=== PATIENT | female | born 1945 | race Caucasian/White ===

== ENCOUNTER → 2016-12-04 | Outpatient (CLI) | payer MEDICARE, OTHER | LOC: RAD 12:48 | PROVIDERS: ATTEND Orthopaedic Surgery | DX: M53.3 Sacrococcygeal disorders, not elsewhere classified (principal); S32.9XXA Fracture of unspecified parts of lumbosacral spine and pelvis, initial encounter for closed fracture; X58.XXXA Exposure to other specified factors, initial encounter | CPT/HCPCS: 72192 ==

== ENCOUNTER 2017-03-08 22:33 | Inpatient (IN) | payer MEDICARE, OTHER, MEDICAID ==
[2017-03-08] MEDS ORDERED: ACETAMINOPHEN 325 MG TABLET PO ONE (23:03)
[2017-03-08] MEDS ORDERED: IPRATROPIUM/ALBUTEROL 0.5-2.5 MG/3 ML AMPUL NEB ONE (23:06)
--- NOTE | 2017-03-08 23:11 | ER Document Report ---
ED General - General Mode of Arrival: Medic Information source: Patient, OM Records, Outside Facility Records TRAVEL OUTSIDE OF THE [place] IN LAST 30 DAYS: No - HPI Patient complains to provider of: Difficulty Breathing Onset: This morning Onset/Duration: Persistent Associated symptoms: Productive cough, Fever, Shortness of breath, Other - Incontinent <SALVADOR PÉREZ - Last Filed: 03/08/17 23:06> <VERNELL EWING - Last Filed: 03/09/17 05:02> - General Chief Complaint: Breathing Difficulty Stated Complaint: RESPIRATROY DISTRESS Time Seen by Provider: 03/08/17 22:54 Notes: Patient is a 71 year old female, with significant medical history including vascular dementia, COPD, pulmonary hypertension, presenting to the emergency department via EMS from [facility] with concerns of difficulty breathing. According to medical documents sent over with the patient, patient was febrile, SOB, and urinary incontinent. Patient had a chest x-ray performed today that showed right lower lobe infiltrate. Patient also had blood work that showed a WBC 15,200, fever of 101.7 at 1700 this afternoon. Patient given Xopenex 0.63 mg neb x2 - most recent at 2200. Patient reports improvement in her breathing. PCP Dr. oLng (SALVADOR PÉREZ) - Related Data Allergies/Adverse Reactions: erythromycin base [Erythromycin Base] Allergy (Severe, Verified 06/08/16 13:58) Paranoid latex [Latex] Allergy (Intermediate, Verified 06/08/16 13:58) Blisters Past Medical History - General Information source: [facility] Records, Outside Facility Records - Social History Smoking Status: Former Smoker Lives with: [facility] - [place] Family History: Reviewed & Not Pertinent, COPD, Hypertension - Past Medical History Cardiac Medical History: Reports: Hx Hypercholesterolemia, Hx Hypertension Pulmonary Medical History: Reports: Hx Bronchitis, Hx COPD, Hx Pneumonia Neurological Medical History: Reports: Hx Cerebrovascular Accident Endocrine Medical History: Reports: Hx Hyperthyroidism Musculoskeltal Medical History: Reports Hx Arthritis Psychiatric Medical History: Reports: Hx Depression Traumatic Medical History: Reports: Hx Fractures Past Surgical History: Reports: Hx Appendectomy, Hx Cholecystectomy - Gallbladder was not seen on a recent CT scan, no clips were noted, it may b - Immunizations Hx Diphtheria, Pertussis, Tetanus Vaccination: - unknown Hx Pneumococcal Vaccination: 10/11/06 <SALVADOR PÉREZ - Last Filed: 03/08/17 23:06> Review of Systems - Review of Systems Constitutional: See HPI, Fever EENT: No symptoms reported Cardiovascular: No symptoms reported Respiratory: See HPI, Cough, Short of breath Gastrointestinal: No symptoms reported Genitourinary: See HPI, Incontinence Female Genitourinary: No symptoms reported Musculoskeletal: No symptoms reported Skin: No symptoms reported Hematologic/Lymphatic: No symptoms reported Neurological/Psychological: No symptoms reported -: Yes All other systems reviewed and negative <SALVADOR PÉREZ - Last Filed: 03/08/17 23:06> Physical Exam - General General appearance: Alert - HEENT Head: Normocephalic, Atraumatic Eyes: Normal Pupils: PERRL - Respiratory Respiratory status: No respiratory distress Breath sounds: Rhonchi, Wheezing - Cardiovascular Rhythm: Regular Heart sounds: Normal auscultation Murmur: No - Abdominal Inspection: Normal Distension: No distension Bowel sounds: Normal Tenderness: Nontender Organomegaly: No organomegaly - Back Back: Normal, Nontender - Extremities General upper extremity: Normal inspection, Nontender General lower extremity: Normal inspection, Nontender - Neurological Neuro grossly intact: Yes Cognition: Other - Vascular Dementia Standish Coma Scale Eye Opening: Spontaneous Feliz Coma Scale Verbal: Oriented Feliz Coma Scale Motor: Obeys Commands Feliz Coma Scale Total: 15 Speech: Normal - Psychological Associated symptoms: Normal affect, Normal mood - Skin Skin Temperature: Warm Skin Moisture: Dry Skin Color: Normal <SALVADOR PÉREZ - Last Filed: 03/08/17 23:06> Course <SALVADOR PÉREZ - Last Filed: 03/08/17 23:06> - Laboratory Result Diagrams: 03/08/17 23:15 03/08/17 23:15 - Diagnostic Test Radiology reviewed: Image reviewed, Reports reviewed - Chest x-ray shows chronic interstitial changes and emphysema. There are no acute processes noted. CTA chest does not show pulmonary emboli, it does show a right lower lobe infiltrate. - EKG Interpretation by [facility] EKG shows normal: Sinus rhythm, Higbee, Intervals, QRS Complexes. abnormal: ST-T Waves - Diffuse nonspecific repolarization abnormalities Rhythm: NSR - 92 - Consults Dr. Tran Consulted provider: will see as inpatient <VERNELL EWING - Last Filed: 03/09/17 05:02> - Re-evaluation Re-evalutation: 03/09/17 00:40 Seems a little restless at this time, has a respiratory rate of 28. On 4 L O2 her pulse ox is 100%. Nurse tells me they have had the patient on 4 L O2 at the [facility]. 03/09/17 01:32 The oxygen was turned down to 2 L and an ABG was obtained showing a pH of 7.46, PCO2 36.7, PO2 63, 93% oxygen saturation. (VERNELL EWING) - Vital Signs Vital signs: Temp Pulse Resp BP Pulse Ox 98.6 F 92 22 H 143/52 H 96 03/08/17 23:00 03/08/17 23:00 03/09/17 04:18 03/09/17 04:18 03/09/17 04:18 - Laboratory Laboratory results interpreted by me: 03/08/17 03/08/17 03/08/17 23:15 23:15 23:15 WBC 13.2 H RBC 3.58 L Hgb 8.0 L Hct 25.6 L MCV 71 L MCH 22.4 L MCHC 31.4 L RDW 17.6 H Seg Neutrophils % 78.3 H Lymphocytes % 7.5 L Monocytes % 13.2 H Absolute Neutrophils 10.3 H Absolute Monocytes 1.7 H D-Dimer 1.55 H ABG pH ABG pO2 ABG Total CO2 ABG O2 Saturation Sodium 127.7 L Chloride 90 L BUN 32 H Est GFR (Non-Af Amer) 56 L AST 45 H Alkaline Phosphatase 128 H Albumin 3.4 L Crossmatch 03/09/17 03/09/17 01:10 01:56 WBC RBC Hgb Hct MCV MCH MCHC RDW Seg Neutrophils % Lymphocytes % Monocytes % Absolute Neutrophils Absolute Monocytes D-Dimer ABG pH 7.46 H ABG pO2 63.0 L ABG Total CO2 26.5 H ABG O2 Saturation 93.3 L Sodium Chloride BUN Est GFR (Non-Af Amer) AST Alkaline Phosphatase Albumin Crossmatch See Detail Discharge <SALVADOR PÉREZ - Last Filed: 03/08/17 23:06> - Discharge Admitting Provider: Ethan Tran covering Unit Admitted: IMCU <VERNELL EWING - Last Filed: 03/09/17 05:02> - Discharge Clinical Impression: COPD exacerbation Right lower lobe pneumonia Qualifiers: Pneumonia type: due to unspecified organism Qualified Code(s): J18.1 - Lobar pneumonia, unspecified organism Anemia Qualifiers: Anemia type: iron deficiency Iron deficiency anemia type: chronic blood loss Qualified Code(s): D50.0 - Iron deficiency anemia secondary to blood loss ( chronic) Condition: Stable Disposition: ADMITTED INPATIENT Scribe Attestation: 03/09/17 05:00 I personally performed the services described in the documentation, reviewed and edited the documentation which was dictated to the scribe in my presence, and it accurately records my words and actions. (VERNELL EWING) Scribe Documentation - Scribe Written by Fernando:: Fernando Sanders, 03/08/2017 [id number] acting as scribe for :: Bruno <SALVADOR PÉREZ - Last Filed: 03/08/17 23:06>
[2017-03-08 23:32] LABS: ABSOLUTE EOSINOPHILS # (AUTO) 0.1 10^3/uL (0.0-0.6); ABSOLUTE MONOCYTES (AUTO) 1.7 10^3/uL (0.1-1.4); ABSOLUTE NEUT (AUTO) 10.3 10^3/uL (1.7-8.2); BASOPHILS % (AUTO) 0.3 % (0-2); EOSINOPHILS % (AUTO) 0.7 % (0-6); HEMATOCRIT 25.6 % (36.0-47.0); HGB HCT DIFFERENCE -1.6; LYMPHOCYTES % (AUTO) 7.5 % (13-45); MEAN CORPUSCULAR HEMOGLOBIN 22.4 pg (27.0-33.4); MEAN CORPUSCULAR HGB CONC 31.4 g/dL (32.0-36.0); MEAN CORPUSCULAR VOLUME 71 fl (80-97); MONOCYTES % (AUTO) 13.2 % (3-13); RED BLOOD COUNT 3.58 10^6/uL (3.72-5.28); RED CELL DISTRIBUTION WIDTH 17.6 % (11.5-14.0); SEGMENTED NEUTROPHILS % (AUTO) 78.3 % (42-78); WHITE BLOOD COUNT 13.2 10^3/uL (4.0-10.5)
--- NOTE | 2017-03-08 23:36 | RADIOLOGY REPORT (SQ) ---
EXAM DESCRIPTION: CHEST SINGLE VIEW COMPLETED DATE/TIME: 03/08/2017 11:15 pm REASON FOR STUDY: DIFFICULTY BREATHING COMPARISON: 08/10/2016 EXAM PARAMETERS: NUMBER OF VIEWS: One view. TECHNIQUE: Single frontal radiographic view of the chest acquired. RADIATION DOSE: NA LIMITATIONS: None. FINDINGS: LUNGS AND PLEURA: No acute opacities, masses or pneumothorax. Similar chronic interstitia l changes and emphysema. No pleural effusion. MEDIASTINUM AND HILAR STRUCTURES: Stable. HEART AND VASCULAR STRUCTURES: Stable. BONES: No acute findings. HARDWARE: None in the chest. OTHER: No other significant finding. IMPRESSION: NO ACUTE RADIOGRAPHIC FINDING IN THE CHEST. TECHNICAL DOCUMENTATION: JOB ID: [id number]
[2017-03-08 23:46] LABS: ALANINE AMINOTRANSFERASE 34 U/L (9-52); ALBUMIN 3.4 g/dL (3.5-5.0); ALKALINE PHOSPHATASE 128 U/L (38-126); ANION GAP 13 (5-19); ASPARTATE AMINO TRANSFERASE 45 U/L (14-36); BILIRUBIN,DIRECT 0.4 mg/dL (0.0-0.4); BILIRUBIN,TOTAL 0.4 mg/dL (0.2-1.3); BLOOD UREA NITROGEN 32 mg/dL (7-20); CALCIUM 9.1 mg/dL (8.4-10.2); CARBON DIOXIDE 25 mmol/L (22-30); CHLORIDE 90 mmol/L (98-107); CREATINE KINASE 62 U/L (30-135); CREATININE RESULT 0.98 mg/dL (0.52-1.25); GLUCOSE 107 mg/dL (75-110); POTASSIUM 3.9 mmol/L (3.6-5.0); SODIUM 127.7 mmol/L (137-145); TOTAL PROTEIN 6.6 g/dL (6.3-8.2)
[2017-03-08 23:57] LABS: CREATINE KINASE MB 1.1 ng/mL (<4.55); TROPONIN I 0.016 ng/mL
[2017-03-09] MEDS ORDERED: LEVOFLOXACIN 750 MG TABLET PO ONE (00:01)
[2017-03-09] MEDS ORDERED: PREDNISONE 20 MG TABLET PO ONE (00:39)
[2017-03-09 01:26] LABS: ARTERIAL BLOOD BASE EXCESS 1.5 mmol/L; ARTERIAL BLOOD O2 SATURATION 93.3 % (94-98)
[2017-03-09] MEDS ORDERED: NORMAL SALINE 250 ML IV PRN (01:33)
--- NOTE | 2017-03-09 04:44 | RADIOLOGY REPORT (SQ) ---
EXAM DESCRIPTION: CTA CHEST COMPLETED DATE/TIME: 03/09/2017 4:22 am REASON FOR STUDY: elevated d-dimer, SOB COMPARISON: 08/11/2016. CR, 1 day prior. TECHNIQUE: CT scan of the chest performed using helical scanning technique with dynamic intravenous contrast injection. Images reviewed with lung, soft tissue and bone windows. Reconstructed coronal and sagittal MPR images reviewed. Additional 3 dimensional post-processing performed to develop Maximal Intensity Projection images ([place] P). All images stored on PACS. All CT scanners at this facility use dose modulation, iterative reconstruction, and/or weight based d osing when appropriate to reduce radiation dose to as low as reasonably achievable (ALARA). [facility]: Dose Right [facility]: CareDose [facility]: Dose Right [facility]: Teradose 4D [facility]: Amerpages CONTRAST TYPE AND DOSE: 100 cc Isovue 370- low osmolar. RENAL FUNCTION: Creatinine 1.0 RADIATION DOSE: 14.32 mGy. LIMITATIONS: None. FINDINGS: LUNGS AND PLEURA: Small consolidative opacity of the right lower lobe posteriorly. Modera te emphysematous hyperinflation. Moderate chronic interstitial lung disease pattern. Minimal right basilar effusion. AORTA AND GREAT VESSELS: No aneurysm or dissection. HEART: No pericardial effusion. Moderate coronary arterial calcification. Chronic mild right-sided shift -rotation of the heart or mediastinum. PULMONARY ARTERIES: No emboli visualized in the main pulmonary arteries or the segmental branches. HILAR AND MEDIASTINAL STRUCTURES: No identified masses or abnormal nodes. HARDWARE: None in the chest. UPPER ABDOMEN: Nodular contour of the liver may indicate cirrhosis. THYROID AND OTHER SOFT TISSUES: No masses. No adenopathy. BONES: No acute or significant finding. Mild chronic T8 compression deformity. 3D MIPS: Confirm above findings. OTHER: No other significant finding. IMPRESSION: Small right lower lobar pneumonia -atelectasis. No evidence of pulmonary emboli. Possi ble cirrhosis. TECHNICAL DOCUMENTATION: JOB ID: [id number] Quality ID # [id number]: Final reports with documentation of one or more dose reduction techniques (e.g., Au tomated exposure control, adjustment of the mA and/or kV according to patient size, use of iterative reconstruction technique) 2010 [employer]- All Rights Reserved
[2017-03-09] MEDS ORDERED: IPRATROPIUM/ALBUTEROL 0.5-2.5 MG/3 ML AMPUL NEB ONE (06:20)
[2017-03-09] MEDS ORDERED: LANSOPRAZOLE 30 MG TAB.RAP.DR PO ONE (09:30)
[2017-03-09 09:37] LABS: PROTHROMBIN TIME 18.6 SEC (11.4-15.4)
[2017-03-09 09:38] LABS: PARTIAL THROMBOPLASTIN TIME 31.9 SEC (23.5-35.8)
[2017-03-09] MEDS ORDERED: ENOXAPARIN SODIUM INJ 30 MG/0.3 ML DISP.SYRIN SUBCUT ONE (10:00)
--- NOTE | 2017-03-09 10:01 | EKG REPORT ---
SEVERITY:- ABNORMAL ECG - SINUS RHYTHM NONSPECIFIC REPOL ABNORMALITY, DIFFUSE LEADS LVH : Confirmed by: Lesly Estrada 09-Mar-2017 10:00:19
[2017-03-09] MEDS: NORMAL SALINE 1000 ML 1,000 ML IV PRN ×2 (11:34→23:05)
[2017-03-09 13:32] LABS: HEMATOCRIT 32.3 % (36.0-47.0); HGB HCT DIFFERENCE -1.4; MEAN CORPUSCULAR HEMOGLOBIN 23.9 pg (27.0-33.4); RED BLOOD COUNT 4.32 10^6/uL (3.72-5.28); RED CELL DISTRIBUTION WIDTH 20.2 % (11.5-14.0); WHITE BLOOD COUNT 14.1 10^3/uL (4.0-10.5)
[2017-03-09 13:51] LABS: ALANINE AMINOTRANSFERASE 42 U/L (9-52); ALBUMIN 3.3 g/dL (3.5-5.0); ALKALINE PHOSPHATASE 133 U/L (38-126); ANION GAP 14 (5-19); ASPARTATE AMINO TRANSFERASE 56 U/L (14-36); BILIRUBIN,DIRECT 0.3 mg/dL (0.0-0.4); BILIRUBIN,TOTAL 0.6 mg/dL (0.2-1.3); BLOOD UREA NITROGEN 27 mg/dL (7-20); CALCIUM 9.1 mg/dL (8.4-10.2); CARBON DIOXIDE 25 mmol/L (22-30); CHLORIDE 92 mmol/L (98-107); CREATININE RESULT 0.84 mg/dL (0.52-1.25); GLUCOSE 132 mg/dL (75-110); POTASSIUM 4.5 mmol/L (3.6-5.0); SODIUM 131.3 mmol/L (137-145); TOTAL PROTEIN 6.6 g/dL (6.3-8.2)
[2017-03-09 13:59] LABS: HEMOGLOBIN 10.3 g/dL (12.0-15.5); MEAN CORPUSCULAR VOLUME 75 fl (80-97)
[2017-03-09 14:01] LABS: BAND NEUTROPHILS % (MANUAL) 5 % (3-5); BASOPHILS % (MANUAL) 0 % (0-2); EOSINOPHILS % (MANUAL) 0 % (0-6); LYMPHOCYTES % (MANUAL) 2 % (13-45); TOTAL CELLS COUNTED 100
[2017-03-09 14:02] LABS: BURR CELLS 1+; MICROCYTOSIS 1+; OVALOCYTES SLIGHT; SCHISTOCYTES SLIGHT; TARGET CELLS SLIGHT; TOXIC GRANULATION SLIGHT
[2017-03-09 14:03] LABS: ANISOCYTOSIS 2+; POIKILOCYTOSIS 2+
[2017-03-09 17:30] LABS: APPEARANCE,URINE CLEAR; BILIRUBIN,URINE NEGATIVE (NEGATIVE); GLUCOSE, URINE NEGATIVE (NEGATIVE); KETONES,URINE NEGATIVE (NEGATIVE); LEUKOCYTE ESTERASE,URINE NEGATIVE (NEGATIVE); NITRITE,URINE NEGATIVE (NEGATIVE); PROTEIN,URINE 30 mg/dL (NEGATIVE); URINE SPECIFIC GRAVITY 1.044; UROBILINOGEN,URINE NEGATIVE mg/dL (<2.0)
--- NOTE | 2017-03-10 00:07 | PDOC H&P ---
History of Present Illness Admission Date/PCP: 03/09/17 05:16 Patient complains of: Difficulty with breathing, Fever History of Present Illness: ROSY PIKE is a 71 year old female patient of Dr Long resident at [facility] who was transferred to the ED following her evaluation for difficulty with breathing at the [facility] that eventually revealed significant anemia and possible early phase of lobar pneumonia. Her ED evaluation including CTA scan of chest and abdomen did confirm air sace disease process with significant anemia on blood work. In view of these findings she was advised hospitalization. Past Medical History Cardiac Medical History: Reports: Hyperlipidema, Hypertension Denies: Congestive Heart Failure, DVT, Myocardial Infarction, Pulmonary Embolism Pulmonary Medical History: Reports: Bronchitis, Chronic Obstructive Pulmonary Disease (COPD), Pneumonia Neurological Medical History: Denies: Seizures Endocrine Medical History: Reports: Hyperthyroidism Denies: Diabetes Mellitus Type 1, Diabetes Mellitus Type 2 GI Medical History: Denies: Cirrhosis, Gastroesophageal Reflux Disease, Hiatal Hernia Musculoskeltal Medical History: Reports: Arthritis Skin Medical History: Denies: Eczema, Psoriasis Psychiatric Medical History: Reports: Depression Hematology: Reports: Anemia Past Surgical History Past Surgical History: Reports: Appendectomy, Cholecystectomy - Gallbladder was not seen on a recent CT scan, no clips were noted, it february Denies: Amputation, Hysterectomy Social History Lives with: [facility] - [place] Smoking Status: Current Every Day Smoker Pipes Per Day: 50 Frequency of Alcohol Use: None Hx Recreational Drug Use: No Drugs: None Hx Prescription Drug Abuse: No - Advance Directive Resuscitation Status: Full Code Family History Family History: Reviewed & Not Pertinent, COPD, Hypertension Parental Family History Reviewed: Yes Children Family History Reviewed: Yes Sibling(s) Family History Reviewed.: Yes Medication/Allergy Home Medications: Albuterol Sulfate [Ventolin Hfa] 1 puff IH Q4HP PRN 03/09/17 Amlodipine Besylate [Norvasc 10 mg Tablet] 10 mg PO DAILY 03/09/17 Aspirin/Dipyridamole [Aggrenox 25 mg-200 mg Capsule] 1 cap PO Q12 03/09/17 Atorvastatin Calcium [Lipitor 80 mg Tablet] 80 mg PO DAILY 03/09/17 Budesonide/Formoterol Fumarate [Symbicort HFA 160-4.5 mcg Inhaler 6 gm] 2 puff IH Q12 03/09/17 Fluticasone Propionate [Flonase Nasal [place] 50 Mcg/[place] 16 gm] 2 spray NASL Q12 03/09/17 Lamotrigine [Lamictal] 25 mg PO Q12 03/09/17 Lisinopril [Zestril] 20 mg PO Q12 03/09/17 Loperamide HCl [Imodium 2 mg Capsule] 2 mg PO Q4HP PRN 03/09/17 Magnesium Hydroxide [Milk of Magnesia 30 ml Udcup] 30 ml PO Q3DAYS PRN 03/09/17 Metoprolol Succinate [Toprol Xl 50 mg Tab.sr] 50 mg PO DAILY 03/09/17 Nicotine [Nicoderm 7 mg/24 Hr Transdermal Patch] 1 patch TD DAILY 03/09/17 Omeprazole 40 mg PO DAILY 03/09/17 Oxcarbazepine [Trileptal] 300 mg PO DAILY 03/09/17 Oxcarbazepine [Trileptal] 600 mg PO QHS 03/09/17 Tiotropium [place] [Spiriva Handihaler 5 Cap/Kit (18 Mcg/Cap)] 18 mcg IH DAILY 03/09/17 Tramadol HCl [Ultram 50 mg Tablet] 50 mg PO Q6HP PRN 03/09/17 Allergies/Adverse Reactions: erythromycin base [Erythromycin Base] Allergy (Severe, Verified 06/08/16 13:58) Paranoid latex [Latex] Allergy (Intermediate, Verified 06/08/16 13:58) Blisters Review of Systems Constitutional: ABSENT: chills, fever(s), headache(s), weight gain, weight loss Eyes: ABSENT: visual disturbances Ears: ABSENT: hearing changes Nose, Mouth, and Throat: ABSENT: as per HPI, headache(s), mouth pain, sore throat, vertigo, other Cardiovascular: ABSENT: chest pain, dyspnea on exertion, edema, orthropnea, palpitations Respiratory: PRESENT: cough, dyspnea. ABSENT: sputum Gastrointestinal: ABSENT: abdominal pain, constipation, diarrhea, hematemesis, hematochezia, nausea, vomiting Genitourinary: ABSENT: dysuria, hematuria Musculoskeletal: ABSENT: joint swelling Integumentary: ABSENT: rash, wounds Neurological: ABSENT: abnormal gait, abnormal speech, confusion, dizziness, focal weakness, syncope Psychiatric: ABSENT: anxiety, depression, homidical ideation, suicidal ideation Endocrine: ABSENT: cold intolerance, heat intolerance, polydipsia, polyuria Hematologic/Lymphatic: ABSENT: easy bleeding, easy bruising, lymphadenopathy Physical Exam Vital Signs: Temp Pulse Resp BP Pulse Ox 97.3 F 78 25 H 145/58 H 97 03/09/17 07:17 03/09/17 07:17 03/09/17 07:17 03/09/17 07:17 03/09/17 07:25 Intake & Output 03/08/17 03/09/17 03/10/17 06:59 06:59 06:59 Intake Total 50 Balance 50 General appearance: PRESENT: no acute distress, well-developed, well-nourished Head exam: PRESENT: atraumatic, normocephalic Eye exam: PRESENT: conjunctiva pink, EOMI, PERRLA. ABSENT: scleral icterus Ear exam: PRESENT: normal external ear exam Mouth exam: PRESENT: moist, tongue midline Throat exam: ABSENT: post pharyngeal erythema, tonsillar erythema, tonsillar exudate, tonsillogmegaly, other Neck exam: PRESENT: full ROM. ABSENT: carotid bruit, JVD, lymphadenopathy, thyromegaly Respiratory exam: PRESENT: decreased breath sounds - at lung bases bilaterally. Cardiovascular exam: PRESENT: RRR. ABSENT: diastolic murmur, rubs, systolic murmur Pulses: PRESENT: normal dorsalis pedis pul, +2 pedal pulses bilateral Vascular exam: PRESENT: normal capillary refill GI/Abdominal exam: PRESENT: normal bowel sounds, soft. ABSENT: distended, guarding, mass, organolmegaly, rebound, tenderness Rectal exam: PRESENT: deferred Extremities exam: ABSENT: pedal edema Musculoskeletal exam: PRESENT: deformity - related to multipe joints osteoarthrtis involvment Neurological exam: PRESENT: alert, awake, oriented to person, oriented to place , oriented to time, oriented to situation, CN II-XII grossly intact. ABSENT: motor sensory deficit Psychiatric exam: PRESENT: appropriate affect, normal mood. ABSENT: homicidal ideation, suicidal ideation Skin exam: PRESENT: dry, intact, warm. ABSENT: cyanosis, rash Results Laboratory Results: Please Babyage for laboratory results that form significant part f my medical decision making in this case. Impressions: Chest X-Ray 03/08/17 22:50 IMPRESSION: NO ACUTE RADIOGRAPHIC FINDING IN THE CHEST. Chest/Abdomen CTA 03/09/17 01:47 IMPRESSION: Small right lower lobar pneumonia -atelectasis. No evidence of pulmonary emboli. Possible cirrhosis. Assessment & Plan - Diagnosis (1) Right lower lobe pneumonia Qualifiers: Qualified Code(s): J18.1 - Lobar pneumonia, unspecified organism Is this a current diagnosis for this admission?: YesPlan: See admitting attending orders. (2) Anemia Qualifiers: Qualified Code(s): D50.0 - Iron deficiency anemia secondary to blood loss (chronic) Is this a current diagnosis for this admission?: YesPlan: see admitting attending orders. - Time Time Spent: 50 to 70 Minutes Medications reviewed and adjusted accordingly: Yes Anticipated discharge: SNF Within: Other - Inpatient Certification Medical Necessity: Need Close Monitoring Due to Risk of Patient Decompensation, Need For IV Fluids, Need For Continuous Telemetry Monitoring, Risk of Complication if Not Cared For in Hospital Post Hospital Care: D/C or Transfer Summary - Plan Summary Plan Summary: See admitting attending orders.
[2017-03-10] MEDS: LANSOPRAZOLE 30 MG TAB.RAP.DR PO SCH (06:08)
[2017-03-10] MEDS: ENOXAPARIN SODIUM INJ 30 MG/0.3 ML DISP.SYRIN SUBCUT SCH (08:23)
[2017-03-10] MEDS: AMLODIPINE BESYLATE 10 MG TABLET PO SCH (09:10)
[2017-03-10] MEDS: LEVOFLOXACIN 750 MG TABLET PO SCH (09:11)
[2017-03-10] MEDS: ASPIRIN/DIPYRIDAMOLE 25-200 MG 1 CAP.SR CPMP.12HR PO SCH ×2 (09:11→21:44)
[2017-03-10] MEDS: METOPROLOL SUCCINATE 50 MG TAB.SR.24H PO SCH (09:12)
[2017-03-10] MEDS: LISINOPRIL 10 MG TABLET PO SCH ×2 (09:12→21:41)
[2017-03-10] MEDS: BUDESONIDE/FORMOTEROL 160-4.5 MCG 60 PUFF/6 GM MDI IH SCH ×2 (09:13→21:39)
[2017-03-10] MEDS: FLUTICASONE NASAL SPRAY 50 MCG/SPRY 120 SPRAY/16 GM NASL SCH ×2 (09:14→21:40)
[2017-03-10] MEDS: LAMOTRIGINE 25 MG TAB.CHEW PO SCH ×2 (09:15→21:43)
[2017-03-10] MEDS: TIOTROPIUM BROMIDE DPI 5 CAP/KIT (18 MCG/CAP) IH SCH (09:17)
[2017-03-10] MEDS: OXCARBAZEPINE 150 MG TABLET PO SCH ×2 (09:17→21:43)
[2017-03-10] MEDS: CLINDAMYCIN 600 MG/D5W RTU 600 MG/50 ML RTUPB IV SCH ×2 (10:08→17:10)
[2017-03-10] MEDS ORDERED: ONDANSETRON HCL INJ/PF 4 MG/2 ML SDV IV PRN (11:51)
[2017-03-10] MEDS: NORMAL SALINE 1000 ML 1,000 ML IV PRN (12:43)
--- NOTE | 2017-03-10 18:38 | PDOC PROGRESS REPORT ---
Subjective Progress Note for:: 03/10/17 Subjective:: Patient and nursing staff reported development of swelling in her jaw region with associated pain. There is no associated pain in her mouth. She denied any difficulty with chewing or swallowing. No nausea or vomiting. No abdominal pain. No reported fever or chills. Physical Exam Vital Signs: Temp Pulse Resp BP Pulse Ox 97.7 F 106 H 20 188/87 H 93 03/10/17 07:26 03/10/17 07:26 03/10/17 07:26 03/10/17 07:26 03/10/17 07:26 Intake & Output 03/09/17 03/10/17 03/11/17 06:59 06:59 06:59 Intake Total 2957 Balance 2957 Weight 51.7 kg Physical Exam: General appearance: PRESENT: no acute distress, well-developed, well-nourished Head exam: PRESENT: atraumatic, normocephalic Eye exam: PRESENT: conjunctiva pink, EOMI, PERRLA. ABSENT: scleral icterus Mouth exam: PRESENT: moist, tongue midline Throat exam: ABSENT: post pharyngeal erythema, tonsillar erythema, tonsillar exudate, other Neck exam: PRESENT: full ROM. submandibullar adenopathy with enlargement with tenderness. ABSENT: carotid bruit, JVD, thyromegaly Respiratory exam: PRESENT: decreased breath sounds - at lung bases bilaterally. Cardiovascular exam: PRESENT: RRR. ABSENT: diastolic murmur, rubs, systolic murmur GI/Abdominal exam: PRESENT: normal bowel sounds, soft. ABSENT: distended, guarding, mass, organolmegaly, rebound, tenderness Extremities exam: ABSENT: pedal edema Musculoskeletal exam: PRESENT: deformity - related to multipe joints osteoarthrtis involvment Neurological exam: PRESENT: alert, awake, oriented to person, oriented to place , oriented to time, oriented to situation, CN II-XII grossly intact. ABSENT: motor sensory deficit Psychiatric exam: PRESENT: appropriate affect, normal mood. ABSENT: homicidal ideation, suicidal ideation Skin exam: PRESENT: dry, intact, warm. ABSENT: cyanosis, rash Results Laboratory Results: 03/09/17 13:00 03/09/17 13:00 03/09/17 03/09/17 03/09/17 13:00 13:00 17:00 WBC 14.1 H RBC 4.32 Hgb 10.3 L D Hct 32.3 L MCV 75 L D MCH 23.9 L MCHC 32.0 RDW 20.2 H Plt Count 313 Seg Neutrophils % Not Reportable Lymphocytes % Not Reportable Monocytes % Not Reportable Eosinophils % Not Reportable Basophils % Not Reportable Absolute Neutrophils Not Reportable Absolute Lymphocytes Not Reportable Absolute Monocytes Not Reportable Absolute Eosinophils Not Reportable Absolute Basophils Not Reportable Sodium 131.3 L Potassium 4.5 Chloride 92 L Carbon Dioxide 25 Anion Gap 14 BUN 27 H Creatinine 0.84 Est GFR ( Amer) > 60 Est GFR (Non-Af Amer) > 60 Glucose 132 H Calcium 9.1 Total Bilirubin 0.6 AST 56 H ALT 42 Alkaline Phosphatase 133 H Total Protein 6.6 Albumin 3.3 L Urine Color YELLOW Urine Appearance CLEAR Urine pH 6.0 Ur Specific [place] 1.044 Urine Protein 30 H Urine Glucose (UA) NEGATIVE Urine Ketones NEGATIVE Urine Blood NEGATIVE Urine Nitrite NEGATIVE Ur Leukocyte Esterase NEGATIVE Urine WBC (Auto) 2 Urine RBC (Auto) 2 Impressions: Chest X-Ray 03/08/17 22:50 IMPRESSION: NO ACUTE RADIOGRAPHIC FINDING IN THE CHEST. Chest/Abdomen CTA 03/09/17 01:47 IMPRESSION: Small right lower lobar pneumonia -atelectasis. No evidence of pulmonary emboli. Possible cirrhosis. Assessment & Plan - Diagnosis (1) Right lower lobe pneumonia Qualifiers: Pneumonia type: due to unspecified organism Qualified Code(s): J18.1 - Lobar pneumonia, unspecified organism Is this a current diagnosis for this admission?: YesPlan: See attending physician orders. Maintain on oral Levofloxacin therapy. (2) Anemia Qualifiers: Anemia type: iron deficiency Iron deficiency anemia type: chronic blood loss Qualified Code(s): D50.0 - Iron deficiency anemia secondary to blood loss (chronic) Is this a current diagnosis for this admission?: YesPlan: Follow up on post transfusion CBC for Hgb assessment fpor any fiurther need of transfusion. Obtain stool guaiac test x 3. (3) Steven's angina syndrome Is this a current diagnosis for this admission?: NoPlan: Start on IV Clindamycin coverage.Obtain CT neck and deep tissue for further evaluation of submandibular space for possible infection. - Time Time Spent with patient: 25-34 minutes Medications reviewed and adjusted accordingly: Yes Anticipated discharge: SNF Within: Other - Inpatient Certification Medical Necessity: Need Close Monitoring Due to Risk of Patient Decompensation, Need For IV Fluids, Need For Continuous Telemetry Monitoring, Need for IV Antibiotics, Risk of Complication if Not Cared For in Hospital Post Hospital Care: D/C or Transfer Summary - Plan Summary Plan Summary: Start on IV Clindamycin and maintain on oral Levofloxacin coverage. Follow up on culture findings. Follow up on CT scan findings with regard to possible Steven angina syndrome.
--- NOTE | 2017-03-10 20:43 | RADIOLOGY REPORT (SQ) ---
EXAM DESCRIPTION: CT SOFT TISSUE NECK WITH COMPLETED DATE/TIME: 03/10/2017 8:27 pm REASON FOR STUDY: Submandibular tender, enlarged adenopathy COMPARISON: None. TECHNIQUE: Post IV contrasted scanning from skull base through lung apices with review of bone, soft tissue and lung windows. Reconstructed coronal and sagittal MPR images reviewed. All images stored on PACS. All CT scanners at this facility use dose modulation, iterative reconstruction, and/or weight based d osing when appropriate to reduce radiation dose to as low as reasonably achievable (ALARA). [facility]: Dose Right [facility]: CareDose [facility]: Dose Right [facility]: Teradose 4D [facility]: GreenLancer CONTRAST TYPE AND DOSE: 75mL Isovue 370 RENAL FUNCTION: Creatinine 0.84 RADIATION DOSE: 6.52 mGy. LIMITATIONS: None. FINDINGS: SKULL BASE: Intact. MAJOR SALIVARY GLANDS: No solid or cystic masses. No inflammatory changes. LYMPHADENOPATHY: No adenopathy. MUCOSAL MASSES OR ASYMMETRY: There are edematous or inflammatory changes in the subcutaneous fat in t he submandibular region with some thickening of the adjacent fascial planes. There are couple more c onfluent areas. The appearance would suggest a cellulitis. Clinical correlation is recommended LARYNX/CORDS: No abnormal findings. VASCULAR STRUCTURES: The major vessels are patent. LUNG APICES: Clear. BONES: Intact. THYROID: Normal size. No masses. PARANASAL SINUSES: Clear. OTHER: No other significant finding. IMPRESSION: There are edematous or inflammatory changes in the subcutaneous fat in the submandibular region as noted above with some thickening of the adjacent fascial planes. There are couple more co nfluent areas. The appearance would suggest a cellulitis. Clinical correlation is recommended. Oth er findings as noted above TECHNICAL DOCUMENTATION: JOB ID: [id number] Quality ID # [id number]: Final reports with documentation of one or more dose reduction techniques (e.g., Au tomated exposure control, adjustment of the mA and/or kV according to patient size, use of iterative reconstruction technique) 2010 [employer]- All Rights Reserved
[2017-03-10] MEDS: ATORVASTATIN CALCIUM 80 MG TABLET PO SCH (21:42)
[2017-03-11] MEDS: CLINDAMYCIN 600 MG/D5W RTU 600 MG/50 ML RTUPB IV SCH ×3 (01:15→17:09)
[2017-03-11] MEDS: LANSOPRAZOLE 30 MG TAB.RAP.DR PO SCH (05:17)
[2017-03-11 06:35] LABS: ABSOLUTE EOSINOPHILS # (AUTO) 0.1 10^3/uL (0.0-0.6); ABSOLUTE LYMPHOCYTES (AUTO) 1.1 10^3/uL (0.5-4.7); ABSOLUTE MONOCYTES (AUTO) 1.4 10^3/uL (0.1-1.4); BASOPHILS % (AUTO) 0.3 % (0-2); EOSINOPHILS % (AUTO) 0.7 % (0-6); HEMATOCRIT 30.3 % (36.0-47.0); HEMOGLOBIN 9.7 g/dL (12.0-15.5); HGB HCT DIFFERENCE -1.2; LYMPHOCYTES % (AUTO) 9.3 % (13-45); MEAN CORPUSCULAR HEMOGLOBIN 24.3 pg (27.0-33.4); MEAN CORPUSCULAR HGB CONC 32.2 g/dL (32.0-36.0); MEAN CORPUSCULAR VOLUME 76 fl (80-97); MONOCYTES % (AUTO) 12.1 % (3-13); RED BLOOD COUNT 4.01 10^6/uL (3.72-5.28); RED CELL DISTRIBUTION WIDTH 20.6 % (11.5-14.0); SEGMENTED NEUTROPHILS % (AUTO) 77.6 % (42-78); WHITE BLOOD COUNT 11.7 10^3/uL (4.0-10.5)
[2017-03-11 06:54] LABS: ALANINE AMINOTRANSFERASE 95 U/L (9-52); ALBUMIN 2.5 g/dL (3.5-5.0); ALKALINE PHOSPHATASE 145 U/L (38-126); ANION GAP 9 (5-19); ASPARTATE AMINO TRANSFERASE 115 U/L (14-36); BILIRUBIN,DIRECT 0.2 mg/dL (0.0-0.4); BILIRUBIN,TOTAL 0.3 mg/dL (0.2-1.3); BLOOD UREA NITROGEN 11 mg/dL (7-20); CALCIUM 8.6 mg/dL (8.4-10.2); CARBON DIOXIDE 28 mmol/L (22-30); CHLORIDE 97 mmol/L (98-107); CREATININE RESULT 0.68 mg/dL (0.52-1.25); GLUCOSE 90 mg/dL (75-110); POTASSIUM 3.7 mmol/L (3.6-5.0); SODIUM 134.4 mmol/L (137-145); TOTAL PROTEIN 5.3 g/dL (6.3-8.2)
[2017-03-11] MEDS: NORMAL SALINE 1000 ML 1,000 ML IV PRN (08:38)
[2017-03-11] MEDS: ENOXAPARIN SODIUM INJ 30 MG/0.3 ML DISP.SYRIN SUBCUT SCH (08:38)
[2017-03-11] MEDS: OXCARBAZEPINE 150 MG TABLET PO SCH ×2 (09:21→21:58)
[2017-03-11] MEDS: LISINOPRIL 10 MG TABLET PO SCH ×2 (09:21→21:58)
[2017-03-11] MEDS: AMLODIPINE BESYLATE 10 MG TABLET PO SCH (09:22)
[2017-03-11] MEDS: METOPROLOL SUCCINATE 50 MG TAB.SR.24H PO SCH (09:22)
[2017-03-11] MEDS: ASPIRIN/DIPYRIDAMOLE 25-200 MG 1 CAP.SR CPMP.12HR PO SCH ×2 (09:22→21:58)
[2017-03-11] MEDS: BUDESONIDE/FORMOTEROL 160-4.5 MCG 60 PUFF/6 GM MDI IH SCH ×2 (09:23→21:58)
[2017-03-11] MEDS: FLUTICASONE NASAL SPRAY 50 MCG/SPRY 120 SPRAY/16 GM NASL SCH ×2 (09:23→21:58)
[2017-03-11] MEDS: LEVOFLOXACIN 750 MG TABLET PO SCH (09:23)
[2017-03-11] MEDS: TIOTROPIUM BROMIDE DPI 5 CAP/KIT (18 MCG/CAP) IH SCH (09:24)
[2017-03-11] MEDS: LAMOTRIGINE 25 MG TAB.CHEW PO SCH ×2 (09:29→21:58)
--- NOTE | 2017-03-11 19:33 | PDOC PROGRESS REPORT ---
Subjective Progress Note for:: 03/11/17 Subjective:: Patient was admitted 2 days ago because of severe pneumonia, she had a CAT scan of the neck on 03/10/2017 because of concern for enlarged submandibular lymph nodes but she was found to have inflammatory changes in the subcutaneous consistent with cellulitis. She was seen today by the bedside, she has very severe COPD with diminished air entry in both lung butts on chest auscultation Physical Exam Vital Signs: Temp Pulse Resp BP Pulse Ox 98.8 F 84 24 H 158/66 H 98 03/11/17 15:56 03/11/17 15:56 03/11/17 15:56 03/11/17 15:56 03/11/17 18:26 Intake & Output 03/10/17 03/11/17 03/12/17 06:59 06:59 06:59 Intake Total 2957 3158 1531 Balance 2957 3158 1531 Weight 51.7 kg 59.8 kg General appearance: PRESENT: no acute distress Eye exam: PRESENT: PERRLA Neck exam: PRESENT: other - Enlargement of the submandibular region Respiratory exam: PRESENT: decreased breath sounds Cardiovascular exam: PRESENT: +S1, +S2 GI/Abdominal exam: PRESENT: soft Neurological exam: PRESENT: alert, CN II-XII grossly intact Results Laboratory Results: 03/11/17 06:10 03/11/17 06:10 03/11/17 03/11/17 06:10 06:10 WBC 11.7 H RBC 4.01 Hgb 9.7 L Hct 30.3 L MCV 76 L MCH 24.3 L MCHC 32.2 RDW 20.6 H Plt Count 323 Seg Neutrophils % 77.6 Lymphocytes % 9.3 L Monocytes % 12.1 Eosinophils % 0.7 Basophils % 0.3 Absolute Neutrophils 9.0 H Absolute Lymphocytes 1.1 Absolute Monocytes 1.4 Absolute Eosinophils 0.1 Absolute Basophils 0.0 Sodium 134.4 L Potassium 3.7 Chloride 97 L Carbon Dioxide 28 Anion Gap 9 BUN 11 Creatinine 0.68 Est GFR ( Amer) > 60 Est GFR (Non-Af Amer) > 60 Glucose 90 Calcium 8.6 Total Bilirubin 0.3 AST 115 H ALT 95 H Alkaline Phosphatase 145 H Total Protein 5.3 L Albumin 2.5 L Impressions: Chest X-Ray 03/08/17 22:50 IMPRESSION: NO ACUTE RADIOGRAPHIC FINDING IN THE CHEST. Chest/Abdomen CTA 03/09/17 01:47 IMPRESSION: Small right lower lobar pneumonia -atelectasis. No evidence of pulmonary emboli. Possible cirrhosis. Soft Tissue Neck CT 03/10/17 00:00 IMPRESSION: There are edematous or inflammatory changes in the subcutaneous fat in the submandibular region as noted above with some thickening of the adjacent fascial planes. There are couple more confluent areas. The appearance would suggest a cellulitis. Clinical correlation is recommended. Other findings as noted above Assessment & Plan - Diagnosis (1) Pneumonia Qualifiers: Pneumonia type: due to unspecified organism Laterality: right Lung location: lower lobe of lung Qualified Code(s): J18.1 - Lobar pneumonia, unspecified organism Is this a current diagnosis for this admission?: YesPlan: continue the IV antibiotic (2) Abscess or cellulitis of chin Is this a current diagnosis for this admission?: Yes (3) Cellulitis and abscess of face Is this a current diagnosis for this admission?: Yes
[2017-03-11] MEDS: ATORVASTATIN CALCIUM 80 MG TABLET PO SCH (21:57)
[2017-03-12] MEDS: NORMAL SALINE 1000 ML 1,000 ML IV PRN (01:02)
[2017-03-12] MEDS: CLINDAMYCIN 600 MG/D5W RTU 600 MG/50 ML RTUPB IV SCH ×3 (01:03→17:36)
[2017-03-12] MEDS: LANSOPRAZOLE 30 MG TAB.RAP.DR PO SCH (05:10)
[2017-03-12] MEDS: FLUTICASONE NASAL SPRAY 50 MCG/SPRY 120 SPRAY/16 GM NASL SCH ×2 (09:53→21:21)
[2017-03-12] MEDS: ENOXAPARIN SODIUM INJ 30 MG/0.3 ML DISP.SYRIN SUBCUT SCH (09:53)
[2017-03-12] MEDS: OXCARBAZEPINE 150 MG TABLET PO SCH ×2 (09:54→21:23)
[2017-03-12] MEDS: BUDESONIDE/FORMOTEROL 160-4.5 MCG 60 PUFF/6 GM MDI IH SCH ×2 (09:54→21:22)
[2017-03-12] MEDS: LISINOPRIL 10 MG TABLET PO SCH ×2 (09:54→21:22)
[2017-03-12] MEDS: AMLODIPINE BESYLATE 10 MG TABLET PO SCH (09:55)
[2017-03-12] MEDS: LAMOTRIGINE 25 MG TAB.CHEW PO SCH ×2 (09:55→21:23)
[2017-03-12] MEDS: METOPROLOL SUCCINATE 50 MG TAB.SR.24H PO SCH (09:55)
[2017-03-12] MEDS: LEVOFLOXACIN 750 MG TABLET PO SCH (09:55)
[2017-03-12] MEDS: ASPIRIN/DIPYRIDAMOLE 25-200 MG 1 CAP.SR CPMP.12HR PO SCH ×2 (09:55→21:22)
[2017-03-12] MEDS: TIOTROPIUM BROMIDE DPI 5 CAP/KIT (18 MCG/CAP) IH SCH (09:56)
--- NOTE | 2017-03-12 19:44 | PDOC PROGRESS REPORT ---
Subjective Progress Note for:: 03/12/17 Subjective:: Patient was admitted 2 days ago because of severe pneumonia, she had a CAT scan of the neck on 03/10/2017 because of concern for enlarged submandibular lymph nodes but she was found to have inflammatory changes in the subcutaneous consistent with cellulitis. She was seen today by the bedside, she has very severe COPD with diminished air entry in both lung butts on chest auscultation Physical Exam Vital Signs: Temp Pulse Resp BP Pulse Ox 97.6 F 94 18 158/68 H 98 03/12/17 11:41 03/12/17 14:00 03/12/17 11:41 03/12/17 11:41 03/12/17 16:57 Intake & Output 03/11/17 03/12/17 03/13/17 06:59 06:59 06:59 Intake Total 3158 2347 1786 Balance 3158 2347 1786 Weight 59.8 kg 61.3 kg General appearance: PRESENT: no acute distress Eye exam: PRESENT: PERRLA Respiratory exam: PRESENT: decreased breath sounds Cardiovascular exam: PRESENT: +S1, +S2 Neurological exam: PRESENT: alert, CN II-XII grossly intact Results Laboratory Results: 03/11/17 06:10 03/11/17 06:10 Impressions: Chest X-Ray 03/08/17 22:50 IMPRESSION: NO ACUTE RADIOGRAPHIC FINDING IN THE CHEST. Chest/Abdomen CTA 03/09/17 01:47 IMPRESSION: Small right lower lobar pneumonia -atelectasis. No evidence of pulmonary emboli. Possible cirrhosis. Soft Tissue Neck CT 03/10/17 00:00 IMPRESSION: There are edematous or inflammatory changes in the subcutaneous fat in the submandibular region as noted above with some thickening of the adjacent fascial planes. There are couple more confluent areas. The appearance would suggest a cellulitis. Clinical correlation is recommended. Other findings as noted above Assessment & Plan - Diagnosis (1) Pneumonia Qualifiers: Pneumonia type: due to unspecified organism Laterality: right Lung location: lower lobe of lung Qualified Code(s): J18.1 - Lobar pneumonia, unspecified organism Is this a current diagnosis for this admission?: Yes (2) Abscess or cellulitis of chin Is this a current diagnosis for this admission?: Yes (3) Cellulitis and abscess of face Is this a current diagnosis for this admission?: Yes - Plan Summary Plan Summary: She will continue present IV antibiotic and management plan
[2017-03-12] MEDS: TRAMADOL HCL 50 MG TABLET PO PRN (21:22)
[2017-03-12] MEDS: ATORVASTATIN CALCIUM 80 MG TABLET PO SCH (21:23)
[2017-03-13] MEDS: CLINDAMYCIN 600 MG/D5W RTU 600 MG/50 ML RTUPB IV SCH ×3 (01:30→17:03)
[2017-03-13] MEDS: LANSOPRAZOLE 30 MG TAB.RAP.DR PO SCH (05:11)
[2017-03-13] MEDS: LISINOPRIL 10 MG TABLET PO SCH ×2 (10:04→21:22)
[2017-03-13] MEDS: AMLODIPINE BESYLATE 10 MG TABLET PO SCH (10:04)
[2017-03-13] MEDS: ASPIRIN/DIPYRIDAMOLE 25-200 MG 1 CAP.SR CPMP.12HR PO SCH ×2 (10:04→21:21)
[2017-03-13] MEDS: METOPROLOL SUCCINATE 50 MG TAB.SR.24H PO SCH (10:05)
[2017-03-13] MEDS: LEVOFLOXACIN 750 MG TABLET PO SCH (10:05)
[2017-03-13] MEDS: ENOXAPARIN SODIUM INJ 40 MG/0.4 ML DISP.SYRIN SUBCUT SCH (10:06)
[2017-03-13] MEDS: OXCARBAZEPINE 150 MG TABLET PO SCH ×2 (10:09→21:22)
[2017-03-13] MEDS: TIOTROPIUM BROMIDE DPI 5 CAP/KIT (18 MCG/CAP) IH SCH (10:10)
[2017-03-13] MEDS: LAMOTRIGINE 25 MG TAB.CHEW PO SCH ×2 (10:10→21:21)
[2017-03-13] MEDS: FLUTICASONE NASAL SPRAY 50 MCG/SPRY 120 SPRAY/16 GM NASL SCH ×2 (10:11→21:20)
[2017-03-13] MEDS: BUDESONIDE/FORMOTEROL 160-4.5 MCG 60 PUFF/6 GM MDI IH SCH ×2 (10:11→21:20)
--- NOTE | 2017-03-13 12:50 | PDOC PROGRESS REPORT ---
Subjective Progress Note for:: 03/13/17 Subjective:: She denied any chest pain or difficulty with breathing. No nausea or vomiting. No abdominal pain. No reported fever or chills. Physical Exam Vital Signs: Temp Pulse Resp BP Pulse Ox 98.8 F 83 16 158/56 H 98 03/13/17 11:13 03/13/17 11:13 03/13/17 11:13 03/13/17 11:13 03/13/17 11:13 Intake & Output 03/12/17 03/13/17 03/14/17 06:59 06:59 06:59 Intake Total 2347 2761 Balance 2347 2761 Weight 61.3 kg 62.1 kg Physical Exam: General appearance: PRESENT: no acute distress, well-developed, well-nourished Head exam: PRESENT: atraumatic, normocephalic Eye exam: PRESENT: conjunctiva pink, EOMI, PERRLA. ABSENT: scleral icterus Mouth exam: PRESENT: moist, tongue midline Throat exam: ABSENT: post pharyngeal erythema, tonsillar erythema, tonsillar exudate, other Neck exam: PRESENT: full ROM. Resolved submandibullar adenopathy. ABSENT: carotid bruit, JVD, thyromegaly Respiratory exam: PRESENT: decreased breath sounds - at lung bases bilaterally. Cardiovascular exam: PRESENT: RRR. ABSENT: diastolic murmur, rubs, systolic murmur GI/Abdominal exam: PRESENT: normal bowel sounds, soft. ABSENT: distended, guarding, mass, organomegaly, rebound, tenderness Extremities exam: ABSENT: pedal edema Musculoskeletal exam: PRESENT: deformity - related to multipe joints osteoarthrtis involvment Neurological exam: PRESENT: alert, awake, oriented to person, oriented to place , oriented to time, oriented to situation, CN II-XII grossly intact. ABSENT: motor sensory deficit Psychiatric exam: PRESENT: appropriate affect, normal mood. ABSENT: homicidal ideation, suicidal ideation Skin exam: PRESENT: dry, intact, warm. ABSENT: cyanosis, rash Results Laboratory Results: 03/11/17 06:10 03/11/17 06:10 Impressions: Chest X-Ray 03/08/17 22:50 IMPRESSION: NO ACUTE RADIOGRAPHIC FINDING IN THE CHEST. Chest/Abdomen CTA 03/09/17 01:47 IMPRESSION: Small right lower lobar pneumonia -atelectasis. No evidence of pulmonary emboli. Possible cirrhosis. Soft Tissue Neck CT 03/10/17 00:00 IMPRESSION: There are edematous or inflammatory changes in the subcutaneous fat in the submandibular region as noted above with some thickening of the adjacent fascial planes. There are couple more confluent areas. The appearance would suggest a cellulitis. Clinical correlation is recommended. Other findings as noted above Assessment & Plan - Diagnosis (1) Right lower lobe pneumonia Qualifiers: Pneumonia type: due to unspecified organism Qualified Code(s): J18.1 - Lobar pneumonia, unspecified organism Is this a current diagnosis for this admission?: YesPlan: See covering attending physician orders. Maintain on oral Levofloxacin coverage. (2) Anemia Qualifiers: Anemia type: iron deficiency Iron deficiency anemia type: chronic blood loss Qualified Code(s): D50.0 - Iron deficiency anemia secondary to blood loss (chronic) Is this a current diagnosis for this admission?: YesPlan: Continue on current management. (3) Steven's angina syndrome Is this a current diagnosis for this admission?: NoPlan: Resolving. Continue IV Clindamycin coverage. - Time Time Spent with patient: 25-34 minutes Medications reviewed and adjusted accordingly: Yes Anticipated discharge: SNF Within: Other - Inpatient Certification Medical Necessity: Need Close Monitoring Due to Risk of Patient Decompensation, Need For Continuous Telemetry Monitoring, Need for IV Antibiotics, Risk of Complication if Not Cared For in Hospital Post Hospital Care: D/C Prefitter Documentation - Plan Summary Plan Summary: Continue all current mediation management.
[2017-03-13] MEDS: TRAMADOL HCL 50 MG TABLET PO PRN (18:08)
[2017-03-13] MEDS: NORMAL SALINE 1000 ML 1,000 ML IV PRN (21:20)
[2017-03-13] MEDS: ATORVASTATIN CALCIUM 80 MG TABLET PO SCH (21:21)
[2017-03-14] MEDS ORDERED: HYDRALAZINE HCL 10 MG TABLET ONE (01:13)
[2017-03-14] MEDS: CLINDAMYCIN 600 MG/D5W RTU 600 MG/50 ML RTUPB IV SCH ×3 (01:14→18:14)
[2017-03-14] MEDS ORDERED: HYDRALAZINE HCL 10 MG TABLET PO ONE ×2 (02:00→05:15)
[2017-03-14] MEDS: TRAMADOL HCL 50 MG TABLET PO PRN ×3 (04:04→21:09)
[2017-03-14] MEDS ORDERED: HYDRALAZINE HCL INJ/PF 20 MG/1 ML SDV IV ONE (05:00)
[2017-03-14] MEDS: LANSOPRAZOLE 30 MG TAB.RAP.DR PO SCH (05:08)
[2017-03-14] MEDS: LEVOFLOXACIN 750 MG TABLET PO SCH (09:01)
[2017-03-14] MEDS: ASPIRIN/DIPYRIDAMOLE 25-200 MG 1 CAP.SR CPMP.12HR PO SCH ×2 (09:01→21:08)
[2017-03-14] MEDS: METOPROLOL SUCCINATE 50 MG TAB.SR.24H PO SCH (09:03)
[2017-03-14] MEDS: LISINOPRIL 10 MG TABLET PO SCH (09:03)
[2017-03-14] MEDS: AMLODIPINE BESYLATE 10 MG TABLET PO SCH (09:03)
[2017-03-14] MEDS: FLUTICASONE NASAL SPRAY 50 MCG/SPRY 120 SPRAY/16 GM NASL SCH ×2 (09:04→21:09)
[2017-03-14] MEDS: BUDESONIDE/FORMOTEROL 160-4.5 MCG 60 PUFF/6 GM MDI IH SCH ×2 (09:04→21:09)
[2017-03-14] MEDS: OXCARBAZEPINE 150 MG TABLET PO SCH ×2 (09:05→21:10)
[2017-03-14] MEDS: LAMOTRIGINE 25 MG TAB.CHEW PO SCH ×2 (09:05→21:09)
[2017-03-14] MEDS: TIOTROPIUM BROMIDE DPI 5 CAP/KIT (18 MCG/CAP) IH SCH (09:06)
[2017-03-14] MEDS: ENOXAPARIN SODIUM INJ 40 MG/0.4 ML DISP.SYRIN SUBCUT SCH (09:07)
[2017-03-14] MEDS ORDERED: NORMAL SALINE 1000 ML 1,000 ML IV PRN (11:56)
--- NOTE | 2017-03-14 12:02 | PDOC PROGRESS REPORT ---
Subjective Progress Note for:: 03/14/17 Subjective:: Patient reported neck and hip joint pain. There was issue with elevated blood pressure since last clinical evaluation necessitating usage of Hydralazine intermittently. She denied any chest pain or difficulty with breathing. No nausea or vomiting. No abdominal pain. No reported fever or chills. Physical Exam Vital Signs: Temp Pulse Resp BP Pulse Ox 97.9 F 85 16 178/70 H 96 03/14/17 07:22 03/14/17 07:22 03/14/17 07:22 03/14/17 07:22 03/14/17 07:22 Intake & Output 03/13/17 03/14/17 03/15/17 06:59 06:59 06:59 Intake Total 2761 2220 Output Total 3 Balance 2761 2217 Weight 62.1 kg 64.8 kg Physical Exam: General appearance: PRESENT: no acute distress, well-developed, well-nourished Head exam: PRESENT: atraumatic, normocephalic Eye exam: PRESENT: conjunctiva pink, EOMI, PERRLA. ABSENT: scleral icterus Mouth exam: PRESENT: moist, tongue midline Throat exam: ABSENT: post pharyngeal erythema, tonsillar erythema, tonsillar exudate, other Neck exam: PRESENT: Limited ROM due to elicited pain. Resolved submandibullar adenopathy. ABSENT: carotid bruit, JVD, thyromegaly Respiratory exam: PRESENT: decreased breath sounds - at lung bases bilaterally. Cardiovascular exam: PRESENT: RRR. ABSENT: diastolic murmur, rubs, systolic murmur GI/Abdominal exam: PRESENT: normal bowel sounds, soft. ABSENT: distended, guarding, mass, organomegaly, rebound, tenderness Extremities exam: ABSENT: pedal edema Musculoskeletal exam: PRESENT: deformity - related to multipe joints osteoarthrtis involvment Neurological exam: PRESENT: alert, awake, oriented to person, oriented to place , oriented to time, oriented to situation, CN II-XII grossly intact. ABSENT: motor sensory deficit Psychiatric exam: PRESENT: appropriate affect, normal mood. ABSENT: homicidal ideation, suicidal ideation Skin exam: PRESENT: dry, intact, warm. ABSENT: cyanosis, rash Results Laboratory Results: 03/11/17 06:10 03/11/17 06:10 Impressions: Chest X-Ray 03/08/17 22:50 IMPRESSION: NO ACUTE RADIOGRAPHIC FINDING IN THE CHEST. Chest/Abdomen CTA 03/09/17 01:47 IMPRESSION: Small right lower lobar pneumonia -atelectasis. No evidence of pulmonary emboli. Possible cirrhosis. Soft Tissue Neck CT 03/10/17 00:00 IMPRESSION: There are edematous or inflammatory changes in the subcutaneous fat in the submandibular region as noted above with some thickening of the adjacent fascial planes. There are couple more confluent areas. The appearance would suggest a cellulitis. Clinical correlation is recommended. Other findings as noted above Assessment & Plan - Diagnosis (1) Right lower lobe pneumonia Qualifiers: Pneumonia type: due to unspecified organism Qualified Code(s): J18.1 - Lobar pneumonia, unspecified organism Is this a current diagnosis for this admission?: Yes (2) Anemia Qualifiers: Anemia type: iron deficiency Iron deficiency anemia type: chronic blood loss Qualified Code(s): D50.0 - Iron deficiency anemia secondary to blood loss (chronic) Is this a current diagnosis for this admission?: Yes (3) Steven's angina syndrome Is this a current diagnosis for this admission?: No (4) Osteoarthritis involving multiple joints on both sides of body Is this a current diagnosis for this admission?: YesPlan: See covering attending physician orders. - Time Time Spent with patient: 25-34 minutes Medications reviewed and adjusted accordingly: Yes Anticipated discharge: SNF Within: Other - Inpatient Certification Based on my medical assessment, after consideration of the patient's comorbidities, presenting symptoms, or acuity I expect that the services needed warrant INPATIENT care.: Yes I certify that my determination is in accordance with my understanding of Medicare's requirements for reasonable and necessary INPATIENT services [42 CFR 412.3e].: Yes Medical Necessity: Need Close Monitoring Due to Risk of Patient Decompensation, Need For IV Fluids, Need for IV Antibiotics, Risk of Complication if Not Cared For in Hospital Post Hospital Care: D/C or Transfer Summary - Plan Summary Plan Summary: See covering attending physician orders
[2017-03-14] MEDS ORDERED: VALSARTAN 160 MG TABLET PO ONE (13:00)
[2017-03-14] MEDS: VALSARTAN 160 MG TABLET PO SCH (21:08)
[2017-03-14] MEDS: ATORVASTATIN CALCIUM 80 MG TABLET PO SCH (21:08)
[2017-03-15] MEDS: CLINDAMYCIN 600 MG/D5W RTU 600 MG/50 ML RTUPB IV SCH ×3 (01:19→17:08)
[2017-03-15] MEDS: TRAMADOL HCL 50 MG TABLET PO PRN ×3 (03:29→21:12)
[2017-03-15] MEDS: LANSOPRAZOLE 30 MG TAB.RAP.DR PO SCH (05:12)
[2017-03-15] MEDS: AMLODIPINE BESYLATE 10 MG TABLET PO SCH (11:17)
[2017-03-15] MEDS: ENOXAPARIN SODIUM INJ 40 MG/0.4 ML DISP.SYRIN SUBCUT SCH (11:17)
[2017-03-15] MEDS: FLUTICASONE NASAL SPRAY 50 MCG/SPRY 120 SPRAY/16 GM NASL SCH ×2 (11:17→21:10)
[2017-03-15] MEDS: METOPROLOL SUCCINATE 50 MG TAB.SR.24H PO SCH (11:18)
[2017-03-15] MEDS: ASPIRIN/DIPYRIDAMOLE 25-200 MG 1 CAP.SR CPMP.12HR PO SCH ×2 (11:18→21:11)
[2017-03-15] MEDS: VALSARTAN 160 MG TABLET PO SCH ×2 (11:18→21:11)
[2017-03-15] MEDS: OXCARBAZEPINE 150 MG TABLET PO SCH ×2 (11:19→21:10)
[2017-03-15] MEDS: BUDESONIDE/FORMOTEROL 160-4.5 MCG 60 PUFF/6 GM MDI IH SCH ×2 (11:19→21:10)
[2017-03-15] MEDS: LEVOFLOXACIN 750 MG TABLET PO SCH (11:19)
[2017-03-15] MEDS: LAMOTRIGINE 25 MG TAB.CHEW PO SCH ×2 (11:20→21:11)
[2017-03-15] MEDS: TIOTROPIUM BROMIDE DPI 5 CAP/KIT (18 MCG/CAP) IH SCH (14:57)
--- NOTE | 2017-03-15 19:23 | PDOC TRANSFER SUMMARY ---
General - Admit/Disc Date/PCP Admission Date/Primary Care Provider: 03/09/17 08:30 Discharge Date: 03/16/17 - Discharge Diagnosis (1) Pneumonia Is this a current diagnosis for this admission?: Yes (2) Abscess or cellulitis of chin Is this a current diagnosis for this admission?: Yes (3) Cellulitis and abscess of face Is this a current diagnosis for this admission?: Yes (4) Iron deficiency anemia due to chronic blood loss Is this a current diagnosis for this admission?: Yes (5) Right lower lobe pneumonia Is this a current diagnosis for this admission?: Yes (6) Chronic interstitial lung disease Is this a current diagnosis for this admission?: Yes (7) Chronic obstructive pulmonary disease Is this a current diagnosis for this admission?: Yes - Additional Information Resuscitation Status: Full Code Home Medications: Albuterol Sulfate [Ventolin Hfa] 1 puff IH Q4HP PRN 03/09/17 Amlodipine Besylate [Norvasc 10 mg Tablet] 10 mg PO DAILY 03/09/17 Aspirin/Dipyridamole [Aggrenox 25 mg-200 mg Capsule] 1 cap PO Q12 03/09/17 Atorvastatin Calcium [Lipitor 80 mg Tablet] 80 mg PO DAILY 03/09/17 Budesonide/Formoterol Fumarate [Symbicort HFA 160-4.5 mcg Inhaler 6 gm] 2 puff IH Q12 03/09/17 Fluticasone Propionate [Flonase Nasal [place] 50 Mcg/[place] 16 gm] 2 spray NASL Q12 03/09/17 Lamotrigine [Lamictal] 25 mg PO Q12 03/09/17 Lisinopril [Zestril] 20 mg PO Q12 03/09/17 Loperamide HCl [Imodium 2 mg Capsule] 2 mg PO Q4HP PRN 03/09/17 Magnesium Hydroxide [Milk of Magnesia 30 ml Udcup] 30 ml PO Q3DAYS PRN 03/09/17 Metoprolol Succinate [Toprol Xl 50 mg Tab.sr] 50 mg PO DAILY 03/09/17 Nicotine [Nicoderm 7 mg/24 Hr Transdermal Patch] 1 patch TD DAILY 03/09/17 Omeprazole 40 mg PO DAILY 03/09/17 Oxcarbazepine [Trileptal] 300 mg PO DAILY 03/09/17 Oxcarbazepine [Trileptal] 600 mg PO QHS 03/09/17 Tiotropium [place] [Spiriva Handihaler 5 Cap/Kit (18 Mcg/Cap)] 18 mcg IH DAILY 03/09/17 Tramadol HCl [Ultram 50 mg Tablet] 50 mg PO Q6HP PRN 03/09/17 Levofloxacin [Levaquin 750 mg Tablet] 750 mg PO DAILY #7 tablet 03/15/17 History of Present Illness Admission Date/PCP: 03/09/17 08:30 History of Present Illness: ROSY PIKE is a 71 year old female patient of Dr Long resident at [facility] who was transferred to the ED following her evaluation for difficulty with breathing at the [facility] that eventually revealed significant anemia and possible early phase of lobar pneumonia. Her ED evaluation including CTA scan of chest and abdomen did confirm air sace disease process with significant anemia on blood work. In view of these findings she was advised hospitalization. Hospital Course Hospital Course: Patient was admitted because of severe anemia associated with right lower lobe pneumonia patient presented to the emergency room, she was evaluated for shortness of breath, she had elevated d-dimer was done, CTA chest was done, it demonstrated right lower lobe pneumonia, there is no pulmonary embolism. She had microcytic anemia she was transfused 2 units of packed red blood cells. She had enlarged neck was evaluated with CT scan of the neck, there is no enlarged lymph nodes, it demonstrated cellulitis of the neck. She was treated with IV antibiotic Levaquin and clindamycin. Physical Exam Vital Signs: Temp Pulse Resp BP Pulse Ox 98.4 F 75 18 141/53 H 100 03/15/17 16:06 03/15/17 16:06 03/15/17 16:06 03/15/17 16:06 03/15/17 17:58 Intake & Output 03/14/17 03/15/17 03/16/17 06:59 06:59 06:59 Intake Total 2220 1827 410 Output Total 3 Balance 2217 1827 410 Weight 64.8 kg 65 kg General appearance: PRESENT: no acute distress, well-developed, well-nourished Head exam: PRESENT: atraumatic, normocephalic Ear exam: PRESENT: normal external ear exam Mouth exam: PRESENT: moist, tongue midline Respiratory exam: PRESENT: decreased breath sounds Cardiovascular exam: PRESENT: RRR, +S1, +S2 Vascular exam: PRESENT: normal capillary refill Rectal exam: PRESENT: deferred Extremities exam: PRESENT: full ROM Neurological exam: PRESENT: alert Skin exam: PRESENT: dry, intact, warm Results Laboratory Results: 03/11/17 06:10 03/11/17 06:10 Impressions: Chest X-Ray 03/08/17 22:50 IMPRESSION: NO ACUTE RADIOGRAPHIC FINDING IN THE CHEST. Chest/Abdomen CTA 03/09/17 01:47 IMPRESSION: Small right lower lobar pneumonia -atelectasis. No evidence of pulmonary emboli. Possible cirrhosis. Soft Tissue Neck CT 03/10/17 00:00 IMPRESSION: There are edematous or inflammatory changes in the subcutaneous fat in the submandibular region as noted above with some thickening of the adjacent fascial planes. There are couple more confluent areas. The appearance would suggest a cellulitis. Clinical correlation is recommended. Other findings as noted above
[2017-03-15] MEDS: ATORVASTATIN CALCIUM 80 MG TABLET PO SCH (21:11)
[2017-03-16] MEDS: CLINDAMYCIN 600 MG/D5W RTU 600 MG/50 ML RTUPB IV SCH ×3 (02:45→17:32)
[2017-03-16] MEDS: LANSOPRAZOLE 30 MG TAB.RAP.DR PO SCH (05:17)
[2017-03-16] MEDS: TRAMADOL HCL 50 MG TABLET PO PRN ×2 (05:17→10:38)
[2017-03-16] MEDS: VALSARTAN 160 MG TABLET PO SCH (10:37)
[2017-03-16] MEDS: LEVOFLOXACIN 750 MG TABLET PO SCH (10:38)
[2017-03-16] MEDS: METOPROLOL SUCCINATE 50 MG TAB.SR.24H PO SCH (10:38)
[2017-03-16] MEDS: LAMOTRIGINE 25 MG TAB.CHEW PO SCH (10:38)
[2017-03-16] MEDS: ASPIRIN/DIPYRIDAMOLE 25-200 MG 1 CAP.SR CPMP.12HR PO SCH (10:38)
[2017-03-16] MEDS: AMLODIPINE BESYLATE 10 MG TABLET PO SCH (10:38)
[2017-03-16] MEDS: BUDESONIDE/FORMOTEROL 160-4.5 MCG 60 PUFF/6 GM MDI IH SCH (10:39)
[2017-03-16] MEDS: FLUTICASONE NASAL SPRAY 50 MCG/SPRY 120 SPRAY/16 GM NASL SCH (10:39)
[2017-03-16] MEDS: TIOTROPIUM BROMIDE DPI 5 CAP/KIT (18 MCG/CAP) IH SCH (10:40)
[2017-03-16] MEDS: OXCARBAZEPINE 150 MG TABLET PO SCH (10:40)
[2017-03-16] MEDS: ENOXAPARIN SODIUM INJ 40 MG/0.4 ML DISP.SYRIN SUBCUT SCH (10:41)
[2017-03-16 16:55] VITALS: BP 138/52
== END 2017-03-16 19:49 | DRG 190 ==
LOC: ER 22:33 → EH 03-09 05:16 → UNDOADMIN 03-09 05:16 → EH 03-09 07:56 → 3W 03-09 07:56
PROVIDERS: ADMIT Internal Medicine; ATTEND Internal Medicine
DX: J44.0 Chronic obstructive pulmonary disease with (acute) lower respiratory infection (principal); J18.1 Lobar pneumonia, unspecified organism; L02.01 Cutaneous abscess of face; L03.211 Cellulitis of face; D50.0 Iron deficiency anemia secondary to blood loss (chronic); E78.5 Hyperlipidemia, unspecified; I10 Essential (primary) hypertension; F32.9 Major depressive disorder, single episode, unspecified; M19.90 Unspecified osteoarthritis, unspecified site; Z79.899 Other long term (current) drug therapy; Z90.49 Acquired absence of other specified parts of digestive tract; F17.290 Nicotine dependence, other tobacco product, uncomplicated; Z88.1 Allergy status to other antibiotic agents; Z91.040 Latex allergy status
CPT/HCPCS: 36415; 36430; 70491; 71010; 71275; 80053; 81001; 82550; 82553; 82803; 82962; 83605; 84484; 85025; 85379; 85610; 85730; 86850; 86900; 86901; 86920; 87040; 87070; 87205; 93005; 93010; 94640; 99285; J1650; J2405; J3490; J7030; J7512; J7620; P9016

== ENCOUNTER → 2017-11-15 | Outpatient (CLI) | payer MEDICARE, OTHER, MEDICAID ==
--- NOTE | 2017-11-15 09:15 | RADIOLOGY REPORT (SQ) ---
EXAM DESCRIPTION: CT HEAD WITHOUT COMPLETED DATE/TIME: 11/15/2017 8:50 am REASON FOR STUDY: R SIDE WEAKNESS I63.9 CEREBRAL INFARCTION, UNSPECIFIED COMPARISON: 07/20/2016 TECHNIQUE: Axial images acquired through the brain without intravenous contrast. Images reviewed wi th bone, brain and subdural windows. Images stored on PACS. All CT scanners at this facility use dose modulation, iterative reconstruction, and/or weight based d osing when appropriate to reduce radiation dose to as low as reasonably achievable (ALARA). [facility]: Dose Right [facility]: CareDose [facility]: Dose Right [facility]: Teradose 4D [facility]: Smart Proximiant RADIATION DOSE: CT Rad equipment meets quality standard of care and radiation dose reduction techniq ues were employed. CTDIvol: 49.0 mGy. DLP: 783 mGy-cm. mGy. LIMITATIONS: None. FINDINGS: VENTRICLES: Prominent ventricles secondary to involutional atrophy. CEREBRUM: No masses. No hemorrhage. No midline shift. No evidence for acute infarction. Periventri cular white matter hypodensity and old left current infarcts on the left. CEREBELLUM: No masses. No hemorrhage. No alteration of density. No evidence for acute infarction. EXTRAAXIAL SPACES: No fluid collections. No masses. ORBITS AND GLOBE: No intra- or extraconal masses. Normal contour of globe without masses. CALVARIUM: No fracture. PARANASAL SINUSES: No fluid or mucosal thickening. SOFT TISSUES: No mass or hematoma. OTHER: No other significant finding. IMPRESSION: No acute findings and no interval change since the previous study of 07/20/2016. 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 EVIDENCE OF ACUTE STROKE: NO. COMMENT: Quality ID # [id number]: Final reports with documentation of one or more dose reduction techniques (e.g., Automated exposure control, adjustment of the mA and/or kV according to patient size, use of iterative reconstruction technique) TECHNICAL DOCUMENTATION: JOB ID: [id number] [employer]- All Rights Reserved
== END ==
LOC: RAD 07:31
PROVIDERS: ATTEND Internal Medicine
DX: R53.1 Weakness (principal); Z86.73 Personal history of transient ischemic attack (TIA), and cerebral infarction without residual deficits
CPT/HCPCS: 70450

== ENCOUNTER → 2017-12-21 | Outpatient (CLI) | payer MEDICARE, OTHER, MEDICAID ==
--- NOTE | 2017-12-21 15:44 | RADIOLOGY REPORT (SQ) ---
EXAM DESCRIPTION: MRI HEAD WITHOUT COMPLETED DATE/TIME: 12/21/2017 1:06 pm REASON FOR STUDY: R SIDED WEAKNESS I69.30 UNSPECIFIED SEQUELAE OF CEREBRAL INFARCTION COMPARISON: MRI brain 05/21/2011, 06/22/2012, 07/31/2016 CT brain 11/15/2017 CT soft tissue neck 03/10/2017 TECHNIQUE: Multiplanar imaging includes non-contrasted T1, T2, FLAIR, and diffusion with ADC map seq uences. Images stored on PACS. LIMITATIONS: None. FINDINGS: ANATOMY: No developmental anomalies. Normal vascular flow voids. Pituitary fossa normal. CSF SPACES: Normal in size and contour. No hemorrhage. CEREBRUM: Diffusion-weighted images are positive for a small focus of acute or subacute ischemic mackey ge in the left posterior limb internal capsule/deep posterior periventricular white matter on axial i mage 18. Subtle decreased T1 weighted signal and increased FLAIR/ T2 signal is seen in this area, th is is most likely 1 week to 1-month-old. Remainder of the brain parenchyma exhibits extensive changes of white matter disease in the bifrontal and biparietal regions and bilateral temporal lobes, with multiple old lacunar infarcts in the bilat eral basal ganglia and thalami. POSTERIOR FOSSA: Advanced small vessel ischemic change in the mid denilson. No acute hemorrhage. No nneka a, masses or mass effect. Internal auditory canals, cerebello-pontine angles, mastoids normal. DIFFUSION IMAGING: Positive for subacute nonhemorrhagic lacunar infarct left posterior limb internal capsule ORBITS: No masses. Globes normal. PARANASAL SINUSES: No fluid levels. Mucosa normal. OTHER: No other significant finding. IMPRESSION: Positive study for subacute nonhemorrhagic lacunar infarct left posterior limb internal capsule. Extensive small vessel disease elsewhere in the hemispheres and mid denilson EVIDENCE OF ACUTE STROKE: NO. TECHNICAL DOCUMENTATION: JOB ID: [id number] [employer]- All Rights Reserved Reading location - IP/workstation name: [email or web address]
== END ==
LOC: RAD 11:38
PROVIDERS: ATTEND Internal Medicine
DX: I69.30 Unspecified sequelae of cerebral infarction (principal)
CPT/HCPCS: 70551

== ENCOUNTER 2018-04-08 05:06 | Emergency (ER) | payer MEDICARE, OTHER, MEDICAID ==
[2018-04-08 06:25] LABS: INTERNATIONAL RATION (INR) 1.05; PROTHROMBIN TIME 14.2 SEC (11.4-15.4)
[2018-04-08 06:30] LABS: ALANINE AMINOTRANSFERASE 26 U/L (9-52); ALBUMIN 3.6 g/dL (3.5-5.0); ALKALINE PHOSPHATASE 91 U/L (38-126); ANION GAP 11 (5-19); ASPARTATE AMINO TRANSFERASE 22 U/L (14-36); BILIRUBIN,DIRECT 0.2 mg/dL (0.0-0.4); BILIRUBIN,TOTAL 0.2 mg/dL (0.2-1.3); BLOOD UREA NITROGEN 46 mg/dL (7-20); CARBON DIOXIDE 25 mmol/L (22-30); CHLORIDE 107 mmol/L (98-107); CREATINE KINASE 51 U/L (30-135); GLUCOSE 82 mg/dL (75-110); SODIUM 142.8 mmol/L (137-145); TOTAL PROTEIN 6.5 g/dL (6.3-8.2)
[2018-04-08 06:39] LABS: ABSOLUTE BASOPHILS # (AUTO) 0.1 10^3/uL (0.0-0.2); ABSOLUTE EOSINOPHILS # (AUTO) 0.2 10^3/uL (0.0-0.6); ABSOLUTE LYMPHOCYTES (AUTO) 1.9 10^3/uL (0.5-4.7); ABSOLUTE MONOCYTES (AUTO) 0.8 10^3/uL (0.1-1.4); ABSOLUTE NEUT (AUTO) 4.8 10^3/uL (1.7-8.2); BASOPHILS % (AUTO) 0.9 % (0-2); EOSINOPHILS % (AUTO) 2.7 % (0-6); HEMATOCRIT 23.7 % (36.0-47.0); LYMPHOCYTES % (AUTO) 24.3 % (13-45); MEAN CORPUSCULAR HEMOGLOBIN 22.8 pg (27.0-33.4); MEAN CORPUSCULAR HGB CONC 31.4 g/dL (32.0-36.0); MEAN CORPUSCULAR VOLUME 73 fl (80-97); MONOCYTES % (AUTO) 10.3 % (3-13); PLATELET COUNT 409 10^3/uL (150-450); RED BLOOD COUNT 3.25 10^6/uL (3.72-5.28); SEGMENTED NEUTROPHILS % (AUTO) 61.8 % (42-78); TOTAL CELLS COUNTED % (AUTO) 100 %; WHITE BLOOD COUNT 7.7 10^3/uL (4.0-10.5)
[2018-04-08 06:40] LABS: HEMOGLOBIN 7.4 g/dL (12.0-15.5)
[2018-04-08 06:41] LABS: CREATINE KINASE MB 0.49 ng/mL (<4.55); TROPONIN I < 0.012 ng/mL
--- NOTE | 2018-04-08 07:04 | RADIOLOGY REPORT (SQ) ---
EXAM DESCRIPTION: XR CHEST 1 VIEW COMPLETED DATE/TME: 04/08/2018 06:09 CLINICAL HISTORY: ams COMPARISON: 03/08/2017 FINDINGS: Single frontal view of the chest. Tortuosity of thoracic aorta. Heart is not enlarged. Leads overlie the chest. No consolidation, pneumothorax, or pleural effusion. No displaced rib fractures identified. Upper abdominal soft tissues are unremarkable. IMPRESSION: 1. No acute pulmonary process identified.
[2018-04-08 08:12] LABS: AMORPHOUS SEDIMENT,URINE TRACE /HPF; APPEARANCE,URINE SLIGHTLY-CLOUDY; BILIRUBIN,URINE NEGATIVE (NEGATIVE); COLOR,URINE YELLOW; GLUCOSE, URINE NEGATIVE (NEGATIVE); KETONES,URINE NEGATIVE (NEGATIVE); LEUKOCYTE ESTERASE,URINE MODERATE (NEGATIVE); NITRITE,URINE POSITIVE (NEGATIVE); PROTEIN,URINE NEGATIVE (NEGATIVE); URINE SPECIFIC GRAVITY 1.018; UROBILINOGEN,URINE NEGATIVE mg/dL (<2.0)
--- NOTE | 2018-04-08 08:21 | RADIOLOGY REPORT (SQ) ---
EXAM DESCRIPTION: CT HEAD WITHOUT COMPLETED DATE/TIME: 04/08/2018 8:03 am REASON FOR STUDY: ams COMPARISON: None. TECHNIQUE: Axial images acquired through the brain without intravenous contrast. Images reviewed wi th bone, brain and subdural windows. Additional sagittal and coronal reconstructions were generated. Images stored on PACS. All CT scanners at this facility use dose modulation, iterative reconstruction, and/or weight based d osing when appropriate to reduce radiation dose to as low as reasonably achievable (ALARA). [facility]: Dose Right [facility]: CareDose [facility]: Dose Right [facility]: Teradose 4D [facility]: [employer] RADIATION DOSE: CT Rad equipment meets quality standard of care and radiation dose reduction techniq ues were employed. CTDIvol: 53.2 mGy. DLP: 937 mGy-cm. mGy. LIMITATIONS: None. FINDINGS: VENTRICLES: Chronic ventricular prominence felt to be related atrophy. CEREBRUM: Moderate chronic small vessel ischemic disease with old lacunar infarcts involving the basa l ganglion. No evidence of hemorrhage, mass effect or acute infarction. CEREBELLUM: No masses. No hemorrhage. Mild chronic small vessel ischemic disease involving the denilson . No evidence for acute infarction. EXTRAAXIAL SPACES: No fluid collections. No masses. ORBITS AND GLOBE: No intra- or extraconal masses. Normal contour of globe without masses. CALVARIUM: No fracture. PARANASAL SINUSES: No fluid or mucosal thickening. SOFT TISSUES: No mass or hematoma. OTHER: No other significant finding. IMPRESSION: 1. No evidence of acute event. 2. Atrophy, moderate chronic small vessel ischemic disease and old lacunar infarcts involving the ba tory ganglion. EVIDENCE OF ACUTE STROKE: NO. COMMENT: Quality ID # [id number]: Final reports with documentation of one or more dose reduction techniques (e.g., Automated exposure control, adjustment of the mA and/or kV according to patient size, use of iterative reconstruction technique) TECHNICAL DOCUMENTATION: JOB ID: [id number] [employer]- All Rights Reserved Reading location - IP/workstation name: [email or web address]
[2018-04-08] MEDS ORDERED: CEFTRIAXONE 1 GM/D5W RTU 1 GM/50 ML RTUPB IV ONE (08:26)
[2018-04-08] MEDS ORDERED: ALBUTEROL SULFATE 0.083% NEB 2.5 MG/3 ML AMPUL NEB ONE (10:52)
[2018-04-08] MEDS ORDERED: IPRATROPIUM/ALBUTEROL 0.5-2.5 MG/3 ML AMPUL NEB ONE (11:09)
--- NOTE | 2018-04-08 12:03 | ER Document Report ---
ED General - General Chief Complaint: Other Stated Complaint: ALTERED MENTAL STATUS Time Seen by Provider: 04/08/18 06:07 TRAVEL OUTSIDE OF THE [place] IN LAST 30 DAYS: No - HPI Patient complains to provider of: Altered mental status Notes: Patient coming in for evaluation of altered mental status. Patient was sent from local correction for altered mental status. Patient upon my evaluation moving all 4 extremities slightly confused however carry on conversations patient states that she is unaware why she came to the ER today. Upon review of the correction notes and previous visit patient was to have a history of dementia and also seizure disorders. When asked patient had a seizure last night patient states she is unaware. Patient looks to be no obvious distress denies any pain. Otherwise most of the HPI is obtained from previous visits and correction records - Related Data Allergies/Adverse Reactions: erythromycin base [Erythromycin Base] Allergy (Severe, Verified 06/08/16 13:58) Paranoid latex [Latex] Allergy (Intermediate, Verified 06/08/16 13:58) Blisters Past Medical History - Social History Smoking Status: Unknown if Ever Smoked Family History: Reviewed & Not Pertinent, COPD, Hypertension Patient has suicidal ideation: No Patient has homicidal ideation: No - Past Medical History Cardiac Medical History: Reports: Hx Hypercholesterolemia, Hx Hypertension Denies: Hx Congestive Heart Failure, Hx DVT, Hx Heart Attack, Hx Pulmonary Embolism Pulmonary Medical History: Reports: Hx Bronchitis, Hx COPD, Hx Pneumonia Neurological Medical History: Reports: Hx Cerebrovascular Accident. Denies: Hx Seizures Endocrine Medical History: Reports: Hx Hyperthyroidism. Denies: Hx Diabetes Mellitus Type 1, Hx Diabetes Mellitus Type 2 Renal/ Medical History: Denies: Hx Peritoneal Dialysis GI Medical History: Denies: Hx Cirrhosis, Hx Gastroesophageal Reflux Disease, Hx Hiatal Hernia Musculoskeltal Medical History: Reports Hx Arthritis Skin Medical History: Denies Hx Eczema, Denies Hx Psoriasis Psychiatric Medical History: Reports: Hx Depression Traumatic Medical History: Reports: Hx Fractures Past Surgical History: Reports: Hx Appendectomy, Hx Cholecystectomy - Gallbladder was not seen on a recent CT scan, no clips were noted, it february. Denies: Hx Hysterectomy - Immunizations Hx Diphtheria, Pertussis, Tetanus Vaccination: - unknown Hx Pneumococcal Vaccination: 10/11/06 Review of Systems - Review of Systems -: Yes ROS unobtainable due to patient's medical condition - Dementia Physical Exam - Vital signs Vitals: Temp Pulse Resp BP Pulse Ox 98.0 F 77 17 202/69 H 99 04/08/18 05:38 04/08/18 05:38 04/08/18 05:38 04/08/18 05:38 04/08/18 05:38 Interpretation: Normal - General General appearance: Appears well, Alert - HEENT Head: Normocephalic, Atraumatic Eyes: Normal Pupils: PERRL - Respiratory Respiratory status: No respiratory distress Chest status: Nontender Breath sounds: Normal Chest palpation: Normal - Cardiovascular Rhythm: Regular Heart sounds: Normal auscultation Murmur: No - Abdominal Inspection: Normal Distension: No distension Bowel sounds: Normal Tenderness: Nontender Organomegaly: No organomegaly - Rectal Notes: Light brown stool on rectal exam Hemoccult card negative tested in the ER with develop. I am not color blind and cannot tell the color BLUE. - Back Back: Normal, Nontender - Extremities General upper extremity: Normal inspection, Nontender, Normal color, Normal ROM , Normal temperature General lower extremity: Normal inspection, Nontender, Normal color, Normal ROM , Normal temperature, Normal weight bearing. No: Buddy's sign - Neurological Neuro grossly intact: Yes Feliz Coma Scale Eye Opening: Spontaneous Feliz Coma Scale Verbal: Oriented Lattimore Coma Scale Motor: Obeys Commands Lattimore Coma Scale Total: 15 Speech: Normal Motor strength normal: LUE, RUE, LLE, RLE Sensory: Normal - Skin Skin Temperature: Warm Skin Moisture: Dry Skin Color: Normal Course - Re-evaluation Re-evalutation: 04/08/18 14:12 Laboratory value showed a chronic anemia along with signs of urinary tract infection. Urine culture was sent patient was given a dose of Rocephin. Patient was given a breathing treatment here in ER she developed some wheezing. Patient case was discussed with her PCP Dr. Chiu at this time patient shows no signs of sepsis vital signs look to be within normal limits states no reason to admit the patient at this time we will continue to monitor the patient in a correction on his service agrees with prescription for Keflex. Patient was discharged to her correction care facility - Vital Signs Vital signs: Temp Pulse Resp BP Pulse Ox 98.0 F 77 28 H 138/68 H 96 04/08/18 05:38 04/08/18 05:38 04/08/18 12:01 04/08/18 12:01 04/08/18 12:01 - Laboratory Result Diagrams: 04/08/18 05:43 04/08/18 05:43 Laboratory results interpreted by me: 04/08/18 04/08/18 04/08/18 05:43 05:43 07:12 RBC 3.25 L Hgb 7.4 L Hct 23.7 L MCV 73 L MCH 22.8 L MCHC 31.4 L RDW 19.0 H BUN 46 H Creatinine 1.82 H Est GFR ( Amer) 33 L Est GFR (Non-Af Amer) 27 L Urine Nitrite POSITIVE H Ur Leukocyte Esterase MODERATE H Discharge - Discharge Clinical Impression: COPD (chronic obstructive pulmonary disease) UTI (urinary tract infection) Qualifiers: Hematuria presence: without hematuria Condition: Good Disposition: REHAB FACILITY Additional Instructions: Patient coming in for altered mental status patient able to carry conversation moving all 4 extremities with a negative head CT and normal vital signs during her stay here in ER. Laboratory studies do show signs of urinary tract infection for which she was given a dose of Rocephin and was given a prescription for Keflex. I did run the case by patient's PCP Dr. Chiu who does recommend discharge back to correction care facility patient should continue her home medications return to ER if symptoms worsen. Prescriptions: Cephalexin Monohydrate [Keflex 500 mg Capsule] 500 mg PO Q6H 7 Days capsule Referrals: JOE CHIU MD [Primary Care Provider] - Follow up as needed
[2018-04-08 12:28] VITALS: BP 138/68
--- NOTE | 2018-04-09 00:18 | EKG REPORT ---
SEVERITY:- ABNORMAL ECG - SINUS RHYTHM NONSPECIFIC T ABNORMALITIES, ANT-LAT LEADS : Confirmed by: Charlene Coppola MD 09-Apr-2018 00:18:04
== END 2018-04-08 12:37 ==
LOC: ER 05:06
DX: J44.9 Chronic obstructive pulmonary disease, unspecified (principal); N39.0 Urinary tract infection, site not specified; R41.82 Altered mental status, unspecified; D64.9 Anemia, unspecified; E78.00 Pure hypercholesterolemia, unspecified; I10 Essential (primary) hypertension; Z90.49 Acquired absence of other specified parts of digestive tract; Z86.73 Personal history of transient ischemic attack (TIA), and cerebral infarction without residual deficits; Z88.3 Allergy status to other anti-infective agents; Z91.040 Latex allergy status
CPT/HCPCS: 93005; 94640 ×2; 99285; 96365; 36415; 87040; 87086; 82553; 82550; 85025; 85610; 87077; 87088; 80053; 81001; 84484; 87186; 71045; 70450; 93010; J0696; A9270 ×2; J7620

== ENCOUNTER 2018-07-10 14:09 | Inpatient (IN) | payer MEDICARE, MEDICAID ==
[2018-07-10 14:30] LABS: ABSOLUTE BASOPHILS # (AUTO) 0.1 10^3/uL (0.0-0.2); ABSOLUTE EOSINOPHILS # (AUTO) 0.2 10^3/uL (0.0-0.6); ABSOLUTE LYMPHOCYTES (AUTO) 1.1 10^3/uL (0.5-4.7); ABSOLUTE MONOCYTES (AUTO) 0.6 10^3/uL (0.1-1.4); ABSOLUTE NEUT (AUTO) 6.2 10^3/uL (1.7-8.2); BASOPHILS % (AUTO) 0.7 % (0-2); EOSINOPHILS % (AUTO) 2.6 % (0-6); HEMATOCRIT 26.5 % (36.0-47.0); LYMPHOCYTES % (AUTO) 13.3 % (13-45); MEAN CORPUSCULAR HEMOGLOBIN 22.2 pg (27.0-33.4); MEAN CORPUSCULAR HGB CONC 30.3 g/dL (32.0-36.0); MEAN CORPUSCULAR VOLUME 73 fl (80-97); MONOCYTES % (AUTO) 7.2 % (3-13); PLATELET COUNT 498 10^3/uL (150-450); RED BLOOD COUNT 3.62 10^6/uL (3.72-5.28); SEGMENTED NEUTROPHILS % (AUTO) 76.2 % (42-78); TOTAL CELLS COUNTED % (AUTO) 100 %; WHITE BLOOD COUNT 8.1 10^3/uL (4.0-10.5)
[2018-07-10 14:51] LABS: ALANINE AMINOTRANSFERASE 19 U/L (9-52); ALKALINE PHOSPHATASE 88 U/L (38-126); ANION GAP 16 (5-19); ASPARTATE AMINO TRANSFERASE 25 U/L (14-36); BILIRUBIN,DIRECT 0.3 mg/dL (0.0-0.4); BILIRUBIN,TOTAL 0.3 mg/dL (0.2-1.3); BLOOD UREA NITROGEN 66 mg/dL (7-20); CALCIUM 9.9 mg/dL (8.4-10.2); CARBON DIOXIDE 19 mmol/L (22-30); CHLORIDE 109 mmol/L (98-107); GLUCOSE 83 mg/dL (75-110); POTASSIUM 5.5 mmol/L (3.6-5.0); SODIUM 144.2 mmol/L (137-145); TOTAL PROTEIN 7.4 g/dL (6.3-8.2)
--- NOTE | 2018-07-10 14:53 | ER Document Report ---
ED General - General Mode of Arrival: Medic Information source: Emergency Med Personnel TRAVEL OUTSIDE OF THE [place] IN LAST 30 DAYS: No <MAXINE FAROOQ - Last Filed: 07/10/18 15:54> <NATALIE HAGER - Last Filed: 07/10/18 23:36> - General Chief Complaint: Altered Mental Status Stated Complaint: ALTERED MENTAL STATUS Time Seen by Provider: 07/10/18 14:29 Notes: Patient is a 72 year old female presenting to the emergency department via EMS from [facility] due to altered mental status. According to EMS and staff at [facility] patient was noticed around 1100 am this morning having difficulty swallowing and not speaking. Staff states the patient is normally quite highly functional further stating the patient normally talks and goes outside to smoke. They further states patient last know well was sometime yesterday. No further history was obtained due to patient's mental status. (MAXINE FAROOQ) - Related Data Allergies/Adverse Reactions: erythromycin base [Erythromycin Base] Allergy (Severe, Verified 06/08/16 13:58) Paranoid latex [Latex] Allergy (Intermediate, Verified 06/08/16 13:58) Blisters Past Medical History - General Information source: Emergency Med Personnel, [facility] Records - Social History Smoking Status: Current Every Day Smoker Family History: Reviewed & Not Pertinent, COPD, Hypertension - Past Medical History Cardiac Medical History: Reports: Hx Hypercholesterolemia, Hx Hypertension Pulmonary Medical History: Reports: Hx Bronchitis, Hx COPD, Hx Pneumonia Neurological Medical History: Reports: Hx Cerebrovascular Accident Endocrine Medical History: Reports: Hx Hyperthyroidism Musculoskeletal Medical History: Reports Hx Arthritis Psychiatric Medical History: Reports: Hx Depression Traumatic Medical History: Reports: Hx Fractures Past Surgical History: Reports: Hx Appendectomy, Hx Cholecystectomy - Gallbladder was not seen on a recent CT scan, no clips were noted, it may b - Immunizations Hx Diphtheria, Pertussis, Tetanus Vaccination: - unknown Hx Pneumococcal Vaccination: 10/11/06 <MAXINE FAROOQ - Last Filed: 07/10/18 15:54> Review of Systems - Review of Systems Constitutional: No symptoms reported EENT: No symptoms reported Cardiovascular: No symptoms reported Respiratory: No symptoms reported Gastrointestinal: No symptoms reported Genitourinary: No symptoms reported Female Genitourinary: No symptoms reported Musculoskeletal: No symptoms reported Skin: No symptoms reported Hematologic/Lymphatic: No symptoms reported Neurological/Psychological: See HPI -: Yes All other systems reviewed and negative <MAXINE FAROOQ - Last Filed: 07/10/18 15:54> <NATALIE HAGER - Last Filed: 07/10/18 23:36> - Review of Systems Notes: ROS per EMS and nursing staff at [facility]. (MAXINE FAROOQ) Physical Exam <MAXINE FAROOQ - Last Filed: 07/10/18 15:54> <NATALIE HAGER - Last Filed: 07/10/18 23:36> - Vital signs Vitals: Pulse Resp BP Pulse Ox 69 17 135/64 H 100 07/10/18 14:25 07/10/18 14:25 07/10/18 14:25 07/10/18 14:25 - Notes Notes: GENERAL: Alert, follows command to a degree. Non verbal. No acute distress. HEAD: Normocephalic, atraumatic. EYES: Pupils equal, round, and reactive to light. Extraocular movements intact. ENT: Oral mucosa moist, tongue midline. NECK: Full range of motion. Supple. Trachea midline. LUNGS: Clear to auscultation bilaterally, no wheezes, rales, or rhonchi. No respiratory distress. HEART: Regular rate and rhythm. No murmurs, gallops, or rubs. ABDOMEN: Soft, non-tender. Non-distended. Bowel sounds present in all 4 quadrants. EXTREMITIES: Moves all 4 extremities spontaneously. No edema, radial and dorsalis pedis pulses 2/4 bilaterally. No cyanosis. NEUROLOGICAL: Alert, will follow commands to move feet and to occasionally squeeze fingers. Non verbal. No obvious signs of weakness. Slight right facial droop. Biceps and patellar DTRs 2+ bilaterally. SKIN: Warm, dry, normal turgor. No rashes or lesions noted. (MAXINE FAROOQ) Course - Laboratory Result Diagrams: 07/10/18 14:13 07/10/18 14:13 <MAXINE FAROOQ - Last Filed: 07/10/18 15:54> - Laboratory Result Diagrams: 07/10/18 14:13 07/10/18 14:13 <NATALIE HAGER - Last Filed: 07/10/18 23:36> - Re-evaluation Re-evalutation: 07/10/18 16:25 Patient arrived initially quite obtunded, would follow commands to squeeze my fingers and lift her toes but otherwise would not follow commands, did not have any focal neurologic deficit as far as weakness or facial droop goes. Part way through her emergency department stay she was able to converse with a clinical laboratory assistant without any difficulty however about 30 minutes after that I tried to speak with her and she would mumble but was not able to answer any of my questions. Workup showed a chronic anemia, acute on chronic renal failure with a BUN of 66 and a creatinine of 3.72, she does have an elevated potassium at 5.5 which is not causing any EKG changes, CO2 is slightly low at 19, I suspect some of this renal failure is coming from dehydration, she will be hydrated with 2 L of LR, urinalysis shows trace ketones, positive nitrites and moderate leukocyte esterase, this was sent for culture, urinary catheter was placed in case any of this failure was coming from urinary retention, urine drug screen is negative, CT head is negative. Patient was started on Rocephin. I did discuss the patient with Dr. Tran who is covering for Dr. Long and he accepts this patient on behalf of Dr. Long to the telemetry care unit. (NATALIE HAGER) - Vital Signs Vital signs: Temp Pulse Resp BP Pulse Ox 98.4 F 79 18 151/69 H 100 07/10/18 19:46 07/10/18 19:46 07/10/18 19:46 07/10/18 19:46 07/10/18 19:46 - Laboratory Laboratory results interpreted by me: 07/10/18 07/10/18 07/10/18 14:13 14:13 15:18 RBC 3.62 L Hgb 8.0 L Hct 26.5 L MCV 73 L MCH 22.2 L MCHC 30.3 L RDW 19.0 H Plt Count 498 H Potassium 5.5 H Chloride 109 H Carbon Dioxide 19 L BUN 66 H Creatinine 3.72 H Est GFR ( Amer) 15 L Est GFR (Non-Af Amer) 12 L Urine Protein 30 H Urine Ketones TRACE H Urine Nitrite POSITIVE H Ur Leukocyte Esterase MODERATE H - EKG Interpretation by Me Additional EKG results interpreted by me: 07/10/18 16:26 EKG shows sinus rhythm at a rate of 75, I disagree with computer reading of an accelerated junctional rhythm, normal axis, slight interventricular conduction delay, no ST segment elevations, no ST segment depressions, there are biphasic T waves noted in V4, T waves are not peaked per my interpretation. (NATALIE HAGER ) Discharge <MAXINE FAROOQ - Last Filed: 07/10/18 15:54> - Discharge Admitting Provider: [facility] Unit Admitted: Telemetry <NATALIE HAGER - Last Filed: 07/10/18 23:36> - Discharge Clinical Impression: Delirium, Hyperkalemia, Iron deficiency anemia due to chronic blood loss UTI (urinary tract infection) Qualifiers: Urinary tract infection type: acute cystitis Hematuria presence: without hematuria Qualified Code(s): N30.00 - Acute cystitis without hematuria Acute on chronic renal failure Qualifiers: Acute renal failure type: unspecified Chronic kidney disease stage: stage 3 ( moderate) Qualified Code(s): N17.9 - Acute kidney failure, unspecified Condition: Fair Disposition: ADMITTED INPATIENT Scribe Attestation: 07/10/18 23:36 I personally performed the services described in the documentation, reviewed and edited the documentation which was dictated to the scribe in my presence, and it accurately records my words and actions. (NATALIE HAGER) Scribe Documentation - Scribe Written by Hienibe:: Fernando Luke, 07/10/2018 15:05 acting as scribe for :: Jens <MAXINE FAROOQ - Last Filed: 07/10/18 15:54>
--- NOTE | 2018-07-10 15:17 | RADIOLOGY REPORT (SQ) ---
EXAM DESCRIPTION: CT HEAD WITHOUT COMPLETED DATE/TIME: 07/10/2018 3:00 pm REASON FOR STUDY: AMS COMPARISON: 04/08/2018. TECHNIQUE: Axial images acquired through the brain without intravenous contrast. Images reviewed wi th bone, brain and subdural windows. Additional sagittal and coronal reconstructions were generated. Images stored on PACS. All CT scanners at this facility use dose modulation, iterative reconstruction, and/or weight based d osing when appropriate to reduce radiation dose to as low as reasonably achievable (ALARA). [facility]: Dose Right [facility]: CareDose [facility]: Dose Right [facility]: Teradose 4D [facility]: [employer] RADIATION DOSE: CT Rad equipment meets quality standard of care and radiation dose reduction techniq ues were employed. CTDIvol: 53.2 mGy. DLP: 964 mGy-cm. mGy. LIMITATIONS: None. FINDINGS: VENTRICLES: Mild prominence related atrophy. CEREBRUM: No hemorrhage or mass or shift. Deep periventricular low density, moderate -marked. Old le ft basal ganglia infarct. CEREBELLUM: No masses. No hemorrhage. No alteration of density. No evidence for acute infarction. EXTRAAXIAL SPACES: No fluid collections. No masses. ORBITS AND GLOBE: No intra- or extraconal masses. Normal contour of globe without masses. CALVARIUM: No fracture. PARANASAL SINUSES: No fluid or mucosal thickening. SOFT TISSUES: No mass or hematoma. OTHER: No other significant finding. IMPRESSION: 1. No acute intracranial abnormality. 2. Chronic changes as before. Stable appearance of the brain. EVIDENCE OF ACUTE STROKE: NO. COMMENT: Quality ID # [id number]: Final reports with documentation of one or more dose reduction techniques (e.g., Automated exposure control, adjustment of the mA and/or kV according to patient size, use of iterative reconstruction technique) TECHNICAL DOCUMENTATION: JOB ID: [id number] [email or web address]- All Rights Reserved Reading location - IP/workstation name: [email or web address]
[2018-07-10 15:37] LABS: APPEARANCE,URINE CLOUDY; BILIRUBIN,URINE NEGATIVE (NEGATIVE); COLOR,URINE AMBER; GLUCOSE, URINE NEGATIVE (NEGATIVE); KETONES,URINE TRACE mg/dL (NEGATIVE); LEUKOCYTE ESTERASE,URINE MODERATE (NEGATIVE); NITRITE,URINE POSITIVE (NEGATIVE); PROTEIN,URINE 30 mg/dL (NEGATIVE); URINE SPECIFIC GRAVITY 1.019; UROBILINOGEN,URINE NEGATIVE mg/dL (<2.0)
[2018-07-10 15:53] LABS: URINE AMPHETAMINES SCREEN NEGATIVE; URINE BARBITURATES SCREEN NEGATIVE; URINE BENZODIAZEPINES SCREEN NEGATIVE; URINE COCAINE SCREEN NEGATIVE; URINE MARIJUANA (THC) SCREEN NEGATIVE; URINE METHADONE SCREEN NEGATIVE; URINE PHENCYCLIDINE SCREEN NEGATIVE
[2018-07-10] MEDS ORDERED: CEFTRIAXONE 1 GM/D5W RTU 1 GM/50 ML RTUPB IV ONE (15:56)
[2018-07-10] MEDS: RINGERS SOLUTION,LACTATED 1,000 ML IV PRN ×2 (16:09→16:13)
[2018-07-10] MEDS ORDERED: CEFTRIAXONE SODIUM 1,000 MG in DEXTROSE 5%-WATER 50 ML IV ONE (16:30)
--- NOTE | 2018-07-10 16:56 | EKG REPORT ---
SEVERITY:- ABNORMAL ECG - NONSPECIFIC T ABNORMALITIES, LATERAL LEADS SINUS RHYTHM.SHORT IL INTERVAL : Confirmed by: Charlene Coppola MD 10-Jul-2018 16:56:02
[2018-07-10] MEDS ORDERED: ACETAMINOPHEN 325 MG TABLET PO PRN (19:05)
[2018-07-11 06:08] LABS: ABSOLUTE BASOPHILS # (AUTO) 0.1 10^3/uL (0.0-0.2); ABSOLUTE EOSINOPHILS # (AUTO) 0.2 10^3/uL (0.0-0.6); ABSOLUTE LYMPHOCYTES (AUTO) 1.4 10^3/uL (0.5-4.7); ABSOLUTE MONOCYTES (AUTO) 0.7 10^3/uL (0.1-1.4); ABSOLUTE NEUT (AUTO) 5.9 10^3/uL (1.7-8.2); BASOPHILS % (AUTO) 0.7 % (0-2); HEMATOCRIT 21.3 % (36.0-47.0); LYMPHOCYTES % (AUTO) 17.3 % (13-45); MEAN CORPUSCULAR HEMOGLOBIN 22.5 pg (27.0-33.4); MEAN CORPUSCULAR VOLUME 75 fl (80-97); MONOCYTES % (AUTO) 8.3 % (3-13); PLATELET COUNT 377 10^3/uL (150-450); RED BLOOD COUNT 2.84 10^6/uL (3.72-5.28); RED CELL DISTRIBUTION WIDTH 18.9 % (11.5-14.0); SEGMENTED NEUTROPHILS % (AUTO) 70.7 % (42-78); TOTAL CELLS COUNTED % (AUTO) 100 %; WHITE BLOOD COUNT 8.3 10^3/uL (4.0-10.5)
[2018-07-11 06:12] LABS: HEMOGLOBIN 6.4 g/dL (12.0-15.5)
[2018-07-11 06:30] LABS: ALANINE AMINOTRANSFERASE 23 U/L (9-52); ALKALINE PHOSPHATASE 65 U/L (38-126); ANION GAP 12 (5-19); ASPARTATE AMINO TRANSFERASE 21 U/L (14-36); BILIRUBIN,DIRECT 0.3 mg/dL (0.0-0.4); BILIRUBIN,TOTAL 0.3 mg/dL (0.2-1.3); BLOOD UREA NITROGEN 54 mg/dL (7-20); CALCIUM 8.8 mg/dL (8.4-10.2); CARBON DIOXIDE 20 mmol/L (22-30); CHLORIDE 112 mmol/L (98-107); GLUCOSE 64 mg/dL (75-110); POTASSIUM 4.7 mmol/L (3.6-5.0); SODIUM 144.2 mmol/L (137-145); TOTAL PROTEIN 5.9 g/dL (6.3-8.2)
[2018-07-11] MEDS ORDERED: ACETAMINOPHEN 325 MG TABLET PO PRN (07:07)
[2018-07-11] MEDS: LANSOPRAZOLE 30 MG TAB.RAP.DR PO SCH (08:24)
[2018-07-11] MEDS ORDERED: CEFTRIAXONE 1 GM/D5W RTU 1 GM/50 ML RTUPB IV SCH (10:00)
[2018-07-11] MEDS ORDERED: ENOXAPARIN SODIUM INJ 40 MG/0.4 ML DISP.SYRIN SUBCUT SCH (10:00)
[2018-07-11] MEDS: ENOXAPARIN SODIUM INJ 30 MG/0.3 ML DISP.SYRIN SUBCUT SCH (10:41)
[2018-07-11] MEDS: NORMAL SALINE 1000 ML 1,000 ML IV PRN (10:41)
[2018-07-11 11:33] LABS: ABSOLUTE BASOPHILS # (AUTO) 0.1 10^3/uL (0.0-0.2); ABSOLUTE EOSINOPHILS # (AUTO) 0.2 10^3/uL (0.0-0.6); ABSOLUTE LYMPHOCYTES (AUTO) 0.8 10^3/uL (0.5-4.7); ABSOLUTE MONOCYTES (AUTO) 0.6 10^3/uL (0.1-1.4); ABSOLUTE NEUT (AUTO) 7.1 10^3/uL (1.7-8.2); ABSOLUTE RETICS # 0.035 10^6/uL (0.028-0.122); EOSINOPHILS % (AUTO) 2.6 % (0-6); HEMATOCRIT 23.2 % (36.0-47.0); LYMPHOCYTES % (AUTO) 9.5 % (13-45); MEAN CORPUSCULAR HEMOGLOBIN 22.2 pg (27.0-33.4); MEAN CORPUSCULAR HGB CONC 30.6 g/dL (32.0-36.0); MEAN CORPUSCULAR VOLUME 73 fl (80-97); MONOCYTES % (AUTO) 7.1 % (3-13); PLATELET COUNT 396 10^3/uL (150-450); RED BLOOD COUNT 3.19 10^6/uL (3.72-5.28); RED CELL DISTRIBUTION WIDTH 18.8 % (11.5-14.0); RETICULOCYTE COUNT (AUTO) 1.08 % (0.66-2.85); SEGMENTED NEUTROPHILS % (AUTO) 79.8 % (42-78); TOTAL CELLS COUNTED % (AUTO) 100 %; WHITE BLOOD COUNT 8.9 10^3/uL (4.0-10.5)
[2018-07-11] MEDS ORDERED: TRAMADOL HCL 50 MG TABLET PO PRN ×2 (11:42→11:55)
[2018-07-11 11:45] LABS: HEMOGLOBIN 7.1 g/dL (12.0-15.5)
[2018-07-11 11:52] LABS: ANION GAP 8 (5-19); BLOOD UREA NITROGEN 51 mg/dL (7-20); CALCIUM 8.9 mg/dL (8.4-10.2); CARBON DIOXIDE 23 mmol/L (22-30); CHLORIDE 112 mmol/L (98-107); GLUCOSE 92 mg/dL (75-110); IRON(TIBC) 13.3 ug/dL (37-170); POTASSIUM 4.6 mmol/L (3.6-5.0); SODIUM 143.3 mmol/L (137-145)
[2018-07-11] MEDS ORDERED: ALBUTEROL SULFATE HFA (90 MCG/PUFF) 200 PUFF/8.5 GM MDI IH PRN (12:01)
[2018-07-11] MEDS: METOPROLOL SUCCINATE 50 MG TAB.SR.24H PO SCH (12:20)
[2018-07-11 12:58] LABS: FOLATE 3.91 ng/mL (>2.76)
--- NOTE | 2018-07-11 14:50 | RADIOLOGY REPORT (SQ) ---
EXAM DESCRIPTION: MRI HEAD WITHOUT COMPLETED DATE/TIME: 07/11/2018 2:40 pm REASON FOR STUDY: CONFUSION COMPARISON: 12/21/2017 TECHNIQUE: Multiplanar imaging includes non-contrasted T1, T2, FLAIR, and diffusion with ADC map seq uences. Images stored on PACS. LIMITATIONS: Motion. FINDINGS: ANATOMY: No anomalies. Normal vascular flow voids. Pituitary fossa normal. CSF SPACES: Atrophy induced prominence of ventricles and CSF spaces. CEREBRUM: Old left MCA territory infarct. High signal intensity lesions scattered throughout the whi te matter on FLAIR imaging with distribution suggesting micro-vascular ischemic changes. No evidence of hemorrhage, mass, or extraaxial fluid collection. POSTERIOR FOSSA: Tiny old lacunar infarcts. No hemorrhage. No edema, masses or mass effect. Internal auditory canals, cerebello-pontine angles, mastoids normal. DIFFUSION IMAGING: Subcentimeter focus of T2 shine through right occipital lobe. No corresponding de creased signal on ADC map. ORBITS: No masses. Globes normal. PARANASAL SINUSES: No fluid levels. Mucosa normal. OTHER: No other significant finding. IMPRESSION: Chronic ischemic changes. EVIDENCE OF ACUTE STROKE: NO. TECHNICAL DOCUMENTATION: JOB ID: [id number] [employer]- All Rights Reserved Reading location - IP/workstation name: [email or web address]
[2018-07-11] MEDS ORDERED: LISINOPRIL 10 MG TABLET PO ONE (17:00)
[2018-07-11] MEDS ORDERED: TIOTROPIUM BROMIDE DPI 5 CAP/KIT (18 MCG/CAP) IH ONE (17:00)
[2018-07-11] MEDS ORDERED: AMLODIPINE BESYLATE 10 MG TABLET PO ONE (17:00)
[2018-07-11] MEDS: CEFTRIAXONE SODIUM 1,000 MG in DEXTROSE 5%-WATER 50 ML IV SCH (19:55)
--- NOTE | 2018-07-11 20:50 | PDOC H&P ---
History of Present Illness Admission Date/PCP: 07/10/18 16:45 JOE CHIU MD History of Present Illness: ROSY PIKE is a 72 year old female, She has a history of chronic obstructive pulmonary disease, dementia, I saw yesterday in the residential at routine rounds, her speech was slurred, she has facial droop and loss of nasolabial fold of the left face, stroke was suspected, I advised the residential staff to transfer out to the emergency room for further evaluation. She was evaluated in the emergency room CT head was done, it was negative for any acute stroke, the blood work showed serum creatinine of 3, grossly abnormal urinalysis. She has a base creatinine of 1.3 so clearly there is acute kidney injury, it was felt to be most likely prerenal in nature. MRI of the head was done today it was normal, when I saw her on the floor there is complete resolution of the slurred speech there is full buddhism of the nasolabial fold suggesting that she probably had a TIA Past Medical History Cardiac Medical History: Reports: Hyperlipidema, Hypertension Pulmonary Medical History: Reports: Bronchitis, Chronic Obstructive Pulmonary Disease (COPD), Pneumonia Neurological Medical History: Denies: Seizures Endocrine Medical History: Reports: Hyperthyroidism Musculoskeltal Medical History: Reports: Arthritis Psychiatric Medical History: Reports: Depression Hematology: Reports: Anemia Past Surgical History Past Surgical History: Reports: Appendectomy, Cholecystectomy - Gallbladder was not seen on a recent CT scan, no clips were noted, it may b Social History Smoking Status: Current Every Day Smoker Frequency of Alcohol Use: None Hx Recreational Drug Use: No Drugs: None Hx Prescription Drug Abuse: No - Advance Directive Resuscitation Status: Full Code Family History Family History: Reviewed & Not Pertinent, COPD, Hypertension Parental Family History Reviewed: Yes Children Family History Reviewed: Yes Sibling(s) Family History Reviewed.: Yes Medication/Allergy Home Medications: Albuterol Sulfate [Ventolin Hfa] 1 puff IH Q4HP PRN 03/09/17 Amlodipine Besylate [Norvasc 10 mg Tablet] 10 mg PO QAM 03/09/17 Aspirin/Dipyridamole [Aggrenox 25 mg-200 mg Capsule] 1 cap PO Q12 03/09/17 Atorvastatin Calcium [Lipitor 80 mg Tablet] 80 mg PO QHS 03/09/17 Budesonide/Formoterol Fumarate [Symbicort HFA 160-4.5 mcg Inhaler 6 gm] 2 puff IH Q12 03/09/17 Fluticasone Propionate [Flonase Nasal Gratis 50 Mcg/Gratis 16 gm] 2 spray NASL Q12 03/09/17 Lamotrigine [Lamictal] 25 mg PO Q12 03/09/17 Metoprolol Succinate [Toprol Xl 50 mg Tab.sr] 50 mg PO QAM 03/09/17 Omeprazole 20 mg PO Q6AM 03/09/17 Oxcarbazepine [Trileptal] 300 mg PO QAM 03/09/17 Oxcarbazepine [Trileptal] 600 mg PO QHS 03/09/17 Tiotropium [place] [Spiriva Handihaler 5 Cap/Kit (18 Mcg/Cap)] 18 mcg IH DAILY 03/09/17 Tramadol HCl [Ultram 50 mg Tablet] 50 mg PO Q6HP PRN 03/09/17 Acetaminophen [Tylenol Extra Strength 500 mg Tablet] 1 tab PO Q8HP PRN 07/11/18 Lisinopril [Prinivil 40 mg Tablet] 40 mg PO QAM 07/11/18 Allergies/Adverse Reactions: erythromycin base [Erythromycin Base] Allergy (Severe, Verified 07/11/18 09:25) Paranoid latex [Latex] Allergy (Intermediate, Verified 07/11/18 09:25) Blisters Review of Systems Constitutional: PRESENT: fatigue Eyes: ABSENT: visual disturbances Ears: ABSENT: hearing changes Cardiovascular: ABSENT: chest pain, dyspnea on exertion, edema, orthropnea, palpitations Respiratory: ABSENT: cough, hemoptysis Gastrointestinal: ABSENT: abdominal pain, constipation, diarrhea, hematemesis, hematochezia, nausea, vomiting Genitourinary: ABSENT: dysuria, hematuria Musculoskeletal: ABSENT: joint swelling Integumentary: ABSENT: rash, wounds Neurological: PRESENT: abnormal gait, frequent falls Psychiatric: ABSENT: anxiety, depression, homidical ideation, suicidal ideation Hematologic/Lymphatic: ABSENT: easy bleeding, easy bruising, lymphadenopathy Physical Exam Vital Signs: Temp Pulse Resp BP Pulse Ox 98.4 F 76 16 200/90 H 93 07/11/18 16:43 07/11/18 16:43 07/11/18 16:43 07/11/18 16:43 10/01/18 16:43 Intake & Output 07/10/18 07/11/18 07/12/18 06:59 06:59 06:59 Intake Total 1050 650 Output Total 200 700 Balance 850 -50 Weight 53.1 kg General appearance: PRESENT: no acute distress Head exam: PRESENT: atraumatic, normocephalic Eye exam: PRESENT: PERRLA Mouth exam: PRESENT: moist, tongue midline Neck exam: PRESENT: full ROM Respiratory exam: PRESENT: clear to auscultation lashawn Cardiovascular exam: PRESENT: RRR, +S1, +S2 Vascular exam: PRESENT: normal capillary refill GI/Abdominal exam: PRESENT: normal bowel sounds, soft Rectal exam: PRESENT: deferred Neurological exam: PRESENT: alert, CN II-XII grossly intact Skin exam: PRESENT: dry, intact, warm Results Laboratory Results: 07/11/18 11:22 07/11/18 11:22 07/11/18 07/11/18 07/11/18 04:19 04:19 08:43 WBC 8.3 RBC 2.84 L Hgb 6.4 L Hct 21.3 L MCV 75 L MCH 22.5 L MCHC 30.0 L RDW 18.9 H Plt Count 377 Seg Neutrophils % 70.7 Lymphocytes % 17.3 Monocytes % 8.3 Eosinophils % 3.0 Basophils % 0.7 Absolute Neutrophils 5.9 Absolute Lymphocytes 1.4 Absolute Monocytes 0.7 Absolute Eosinophils 0.2 Absolute Basophils 0.1 Retic Count (auto) Absolute Retic Sodium 144.2 Potassium 4.7 Chloride 112 H Carbon Dioxide 20 L Anion Gap 12 BUN 54 H Creatinine 2.62 H Est GFR ( Amer) 22 L Est GFR (Non-Af Amer) 18 L Glucose 64 L Calcium 8.8 Iron TIBC % Saturation Ferritin Total Bilirubin 0.3 AST 21 ALT 23 Alkaline Phosphatase 65 Total Protein 5.9 L Albumin 3.0 L Vitamin B12 Folate Blood Type A NEGATIVE Antibody Screen NEGATIVE 07/11/18 07/11/18 11:22 11:22 WBC 8.9 RBC 3.19 L Hgb 7.1 L Hct 23.2 L MCV 73 L MCH 22.2 L MCHC 30.6 L RDW 18.8 H Plt Count 396 Seg Neutrophils % 79.8 H Lymphocytes % 9.5 L Monocytes % 7.1 Eosinophils % 2.6 Basophils % 1.0 Absolute Neutrophils 7.1 Absolute Lymphocytes 0.8 Absolute Monocytes 0.6 Absolute Eosinophils 0.2 Absolute Basophils 0.1 Retic Count (auto) 1.08 Absolute Retic 0.035 Sodium 143.3 Potassium 4.6 Chloride 112 H Carbon Dioxide 23 Anion Gap 8 BUN 51 H Creatinine 2.17 H Est GFR ( Amer) 27 L Est GFR (Non-Af Amer) 22 L Glucose 92 Calcium 8.9 Iron 13.3 L TIBC 300 % Saturation 4 Ferritin 13.80 Total Bilirubin AST ALT Alkaline Phosphatase Total Protein Albumin Vitamin B12 411.0 Folate 3.91 Blood Type Antibody Screen Impressions: Head CT 07/10/18 00:00 IMPRESSION: 1. No acute intracranial abnormality. 2. Chronic changes as before. Stable appearance of the brain. EVIDENCE OF ACUTE STROKE: NO. Head MRI 07/11/18 00:00 IMPRESSION: Chronic ischemic changes. EVIDENCE OF ACUTE STROKE: NO. 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 (3) Urinary tract infection Qualifiers: Urinary tract infection type: site unspecified Hematuria presence: without hematuria Qualified Code(s): N39.0 - Urinary tract infection, site not specified Is this a current diagnosis for this admission?: Yes (4) Dementia Qualifiers: Dementia type: unspecified type Dementia behavioral disturbance: without behavioral disturbance Qualified Code(s): F03.90 - Unspecified dementia without behavioral disturbance Is this a current diagnosis for this admission?: Yes (5) Essential hypertension Is this a current diagnosis for this admission?: Yes (6) Pulmonary hypertension Is this a current diagnosis for this admission?: Yes (7) Anemia Qualifiers: Anemia type: iron deficiency Iron deficiency anemia type: chronic blood loss Qualified Code(s): D50.0 - Iron deficiency anemia secondary to blood loss (chronic) Is this a current diagnosis for this admission?: Yes
[2018-07-11] MEDS: ATORVASTATIN CALCIUM 80 MG TABLET PO SCH (22:01)
[2018-07-11] MEDS: ASPIRIN/DIPYRIDAMOLE 25-200 MG 1 CAP.SR CPMP.12HR PO SCH (22:01)
[2018-07-11] MEDS: LAMOTRIGINE 25 MG TAB.CHEW PO SCH (22:01)
[2018-07-11] MEDS: FLUTICASONE NASAL SPRAY 50 MCG/SPRY 120 SPRAY/16 GM NASL SCH (22:01)
[2018-07-11] MEDS: BUDESONIDE/FORMOTEROL 160-4.5 MCG 60 PUFF/6 GM MDI IH SCH (22:02)
[2018-07-11] MEDS: OXCARBAZEPINE 150 MG TABLET PO SCH (23:54)
[2018-07-12] MEDS: NORMAL SALINE 1000 ML 1,000 ML IV PRN ×3 (00:32→23:00)
--- NOTE | 2018-07-12 05:21 | RADIOLOGY REPORT (SQ) ---
CLINICAL DATA: 72-year-old female with acute kidney injury. TECHNICAL DATA: Real-time multiplanar imaging obtained of the kidneys, aorta, IVC, bladder. FINDINGS: The right kidney is grossly normal in size, shape and echogenicity and measures 9.7 x 5.4 x 4.2 cm. There are punctate shadowing echogenic foci within the right kidney consistent with renal calculi. There is no evidence of hydronephrosis or focal mass lesion. There are no perinephric fluid collections. There is normal color Doppler flow within the right kidney. The left kidney is small in size and echogenic compared to the right kidney. The left kidney is difficult to delineate and measures approximately 6.9 x 3.3 x 3.2 cm. No discrete left renal mass lesion or hydronephrosis is identified. There are no perinephric fluid collections. There is evidence of color Doppler flow within the left kidney. The bladder is partially distended and contains some echogenic foci possibly representing debris. There is a Barajas catheter within the urinary bladder. The aorta and inferior vena cava are grossly unremarkable as visualized. IMPRESSION: 1. Poorly delineated left kidney which appears smaller in size than the right kidney and echogenic suggesting chronic medical renal disease. 2. Barajas catheter as well as echogenic debris within the urinary bladder. Correlate with urinalysis. 3. Right-sided nonobstructing nephrolithiasis.
[2018-07-12] MEDS ORDERED: LANSOPRAZOLE 15 MG TAB.RAP.DR PO SCH (06:00)
[2018-07-12] MEDS ORDERED: (PENDING PHARMACY ID) (Oxcarbazepine [Trileptal] 300 MG) PO SCH (08:00)
[2018-07-12] MEDS: FLUTICASONE NASAL SPRAY 50 MCG/SPRY 120 SPRAY/16 GM NASL SCH ×2 (09:49→22:10)
[2018-07-12] MEDS: BUDESONIDE/FORMOTEROL 160-4.5 MCG 60 PUFF/6 GM MDI IH SCH ×2 (09:49→22:10)
[2018-07-12] MEDS: ENOXAPARIN SODIUM INJ 30 MG/0.3 ML DISP.SYRIN SUBCUT SCH (09:51)
[2018-07-12] MEDS: OXCARBAZEPINE 150 MG TABLET PO SCH ×2 (09:54→22:09)
[2018-07-12] MEDS: LAMOTRIGINE 25 MG TAB.CHEW PO SCH ×2 (09:55→22:09)
[2018-07-12] MEDS: LANSOPRAZOLE 30 MG TAB.RAP.DR PO SCH (09:55)
[2018-07-12] MEDS: ASPIRIN/DIPYRIDAMOLE 25-200 MG 1 CAP.SR CPMP.12HR PO SCH ×2 (09:55→22:09)
[2018-07-12] MEDS: METOPROLOL SUCCINATE 50 MG TAB.SR.24H PO SCH (09:55)
[2018-07-12] MEDS: AMLODIPINE BESYLATE 10 MG TABLET PO SCH (14:03)
[2018-07-12] MEDS: TIOTROPIUM BROMIDE DPI 5 CAP/KIT (18 MCG/CAP) IH SCH (14:04)
[2018-07-12] MEDS: LISINOPRIL 10 MG TABLET PO SCH (14:05)
[2018-07-12] MEDS: CEFTRIAXONE SODIUM 1,000 MG in DEXTROSE 5%-WATER 50 ML IV SCH (17:29)
[2018-07-12 18:55] LABS: APPEARANCE,URINE CLOUDY; BILIRUBIN,URINE NEGATIVE (NEGATIVE); COLOR,URINE YELLOW; GLUCOSE, URINE 50 mg/dL (NEGATIVE); KETONES,URINE NEGATIVE (NEGATIVE); LEUKOCYTE ESTERASE,URINE LARGE (NEGATIVE); NITRITE,URINE NEGATIVE (NEGATIVE); PROTEIN,URINE NEGATIVE (NEGATIVE); URINE SPECIFIC GRAVITY 1.013; UROBILINOGEN,URINE NEGATIVE mg/dL (<2.0)
[2018-07-12 19:00] LABS: CREATINE KINASE MB 0.91 ng/mL (<4.55); TROPONIN I 0.024 ng/mL
--- NOTE | 2018-07-12 21:43 | PDOC PROGRESS REPORT ---
Subjective Progress Note for:: 07/12/18 Subjective:: Patient seen by the bedside, she is alert, weakness on right side of the body Reason For Visit: TIA Physical Exam Vital Signs: Temp Pulse Resp BP Pulse Ox 99.0 F 71 24 H 150/60 H 100 07/12/18 20:05 07/12/18 20:05 07/12/18 20:05 07/12/18 20:05 07/12/18 20:05 Intake & Output 07/11/18 07/12/18 07/13/18 06:59 06:59 06:59 Intake Total 1050 1920 1972 Output Total 200 700 900 Balance 850 1220 1072 Weight 53.1 kg 52.9 kg 55.5 kg General appearance: PRESENT: no acute distress Eye exam: PRESENT: PERRLA Respiratory exam: PRESENT: clear to auscultation lashawn Cardiovascular exam: PRESENT: +S1, +S2 GI/Abdominal exam: PRESENT: soft Neurological exam: PRESENT: alert Results Laboratory Results: 07/11/18 11:22 07/11/18 11:22 07/11/18 07/12/18 21:00 18:40 PTH Intact 74.6 H Urine Color YELLOW Urine Appearance CLOUDY Urine pH 5.0 Ur Specific [place] 1.013 Urine Protein NEGATIVE Urine Glucose (UA) 50 H Urine Ketones NEGATIVE Urine Blood SMALL H Urine Nitrite NEGATIVE Ur Leukocyte Esterase LARGE H Urine WBC (Auto) >182 Urine RBC (Auto) 11 07/12/18 07/12/18 18:15 18:15 Creatine Kinase 55 CK-MB (CK-2) 0.91 Troponin I 0.024 Impressions: Head CT 07/10/18 00:00 IMPRESSION: 1. No acute intracranial abnormality. 2. Chronic changes as before. Stable appearance of the brain. EVIDENCE OF ACUTE STROKE: NO. Head MRI 07/11/18 00:00 IMPRESSION: Chronic ischemic changes. EVIDENCE OF ACUTE STROKE: NO. Renal Ultrasound 07/12/18 00:00 IMPRESSION: 1. Poorly delineated left kidney which appears smaller in size than the right kidney and echogenic suggesting chronic medical renal disease. 2. Barajas catheter as well as echogenic debris within the urinary bladder. Correlate with urinalysis. 3. Right-sided nonobstructing nephrolithiasis. Assessment & Plan - Diagnosis (1) Acute kidney injury Is this a current diagnosis for this admission?: Yes (2) TIA (transient ischemic attack) Qualifiers: Transient cerebral ischemia type: unspecified Qualified Code(s): G45.9 - Transient cerebral ischemic attack, unspecified Is this a current diagnosis for this admission?: Yes (3) Urinary tract infection Qualifiers: Urinary tract infection type: site unspecified Hematuria presence: without hematuria Qualified Code(s): N39.0 - Urinary tract infection, site not specified Is this a current diagnosis for this admission?: Yes (4) Dementia Qualifiers: Dementia type: unspecified type Dementia behavioral disturbance: without behavioral disturbance Qualified Code(s): F03.90 - Unspecified dementia without behavioral disturbance Is this a current diagnosis for this admission?: Yes (5) Essential hypertension Is this a current diagnosis for this admission?: Yes (6) Pulmonary hypertension Is this a current diagnosis for this admission?: Yes (7) Anemia Qualifiers: Anemia type: iron deficiency Iron deficiency anemia type: chronic blood loss Qualified Code(s): D50.0 - Iron deficiency anemia secondary to blood loss (chronic) Is this a current diagnosis for this admission?: Yes (8) Secondary hyperparathyroidism Is this a current diagnosis for this admission?: Yes Plan: Start calcitriol
[2018-07-12 22:08] LABS: ABSOLUTE BASOPHILS # (AUTO) 0.1 10^3/uL (0.0-0.2); ABSOLUTE EOSINOPHILS # (AUTO) 0.2 10^3/uL (0.0-0.6); ABSOLUTE LYMPHOCYTES (AUTO) 1.4 10^3/uL (0.5-4.7); ABSOLUTE NEUT (AUTO) 5.3 10^3/uL (1.7-8.2); BASOPHILS % (AUTO) 0.8 % (0-2); EOSINOPHILS % (AUTO) 2.6 % (0-6); HEMATOCRIT 21.1 % (36.0-47.0); LYMPHOCYTES % (AUTO) 17.2 % (13-45); MEAN CORPUSCULAR HEMOGLOBIN 22.2 pg (27.0-33.4); MEAN CORPUSCULAR HGB CONC 30.8 g/dL (32.0-36.0); MEAN CORPUSCULAR VOLUME 72 fl (80-97); MONOCYTES % (AUTO) 12.7 % (3-13); PLATELET COUNT 342 10^3/uL (150-450); RED BLOOD COUNT 2.94 10^6/uL (3.72-5.28); RED CELL DISTRIBUTION WIDTH 18.7 % (11.5-14.0); SEGMENTED NEUTROPHILS % (AUTO) 66.7 % (42-78); TOTAL CELLS COUNTED % (AUTO) 100 %
[2018-07-12] MEDS: HEPARIN SOD (PORCINE) 5,000 UNIT/ML 1 ML SYRINGE SUBCUT SCH (22:09)
[2018-07-12] MEDS: ATORVASTATIN CALCIUM 80 MG TABLET PO SCH (22:11)
[2018-07-12 22:12] LABS: ALANINE AMINOTRANSFERASE 17 U/L (9-52); ALBUMIN 2.9 g/dL (3.5-5.0); ALKALINE PHOSPHATASE 64 U/L (38-126); ANION GAP 9 (5-19); ASPARTATE AMINO TRANSFERASE 26 U/L (14-36); BILIRUBIN,DIRECT 0.1 mg/dL (0.0-0.4); BILIRUBIN,TOTAL 0.1 mg/dL (0.2-1.3); BLOOD UREA NITROGEN 24 mg/dL (7-20); CALCIUM 8.3 mg/dL (8.4-10.2); CARBON DIOXIDE 21 mmol/L (22-30); CHLORIDE 109 mmol/L (98-107); GLUCOSE 172 mg/dL (75-110); SODIUM 138.7 mmol/L (137-145)
[2018-07-12 22:15] LABS: HEMOGLOBIN 6.5 g/dL (12.0-15.5)
[2018-07-12] MEDS: CALCITRIOL 0.25 MCG CAPSULE PO SCH (22:53)
--- NOTE | 2018-07-12 23:26 | RADIOLOGY REPORT (SQ) ---
Giron scale, color flow, and spectral Doppler was performed of the carotid arteries bilaterally. HISTORY: Bilateral carotid stenosis. Right carotid plaque characterization: Mild scattered plaque 1. CCA peak systolic velocity: 92 cm/sec 2. CCA end-diastolic velocity: 16 cm/sec 3. ICA peak systolic velocity: 128 cm/sec 4. ICA end-diastolic velocity: 24 cm/sec 5. Systolic ratio: 1.4 6. Vertebral artery flow: Antegrade and appears normal. Left carotid plaque characterization: Mild scattered plaque. 1. CCA peak systolic velocity: 72 cm/sec 2. CCA end-diastolic velocity: 14 cm/sec 3. ICA peak systolic velocity: 105 cm/sec 4. ICA end-diastolic velocity: 26 cm/sec 5. Systolic ratio: 1.5 6. Vertebral artery flow: Could not obtain flow on ultrasound. IMPRESSION: Mild scattered plaque in both carotid arteries. There is mild less than 50% stenosis of both internal carotid arteries.
[2018-07-13 00:58] LABS: CREATINE KINASE MB 0.89 ng/mL (<4.55); TROPONIN I 0.022 ng/mL
[2018-07-13] MEDS ORDERED: METOPROLOL SUCCINATE 50 MG TAB.SR.24H PO ONE (05:00)
[2018-07-13] MEDS: HEPARIN SOD (PORCINE) 5,000 UNIT/ML 1 ML SYRINGE SUBCUT SCH ×3 (05:13→21:41)
[2018-07-13 06:29] LABS: ABSOLUTE BASOPHILS # (AUTO) 0.1 10^3/uL (0.0-0.2); ABSOLUTE EOSINOPHILS # (AUTO) 0.2 10^3/uL (0.0-0.6); ABSOLUTE NEUT (AUTO) 5.3 10^3/uL (1.7-8.2); BASOPHILS % (AUTO) 1.2 % (0-2); EOSINOPHILS % (AUTO) 2.6 % (0-6); HEMATOCRIT 22.1 % (36.0-47.0); LYMPHOCYTES % (AUTO) 22.8 % (13-45); MEAN CORPUSCULAR HEMOGLOBIN 22.8 pg (27.0-33.4); MEAN CORPUSCULAR HGB CONC 31.6 g/dL (32.0-36.0); MEAN CORPUSCULAR VOLUME 72 fl (80-97); MONOCYTES % (AUTO) 12.1 % (3-13); PLATELET COUNT 352 10^3/uL (150-450); RED BLOOD COUNT 3.07 10^6/uL (3.72-5.28); RED CELL DISTRIBUTION WIDTH 18.9 % (11.5-14.0); SEGMENTED NEUTROPHILS % (AUTO) 61.3 % (42-78); TOTAL CELLS COUNTED % (AUTO) 100 %; WHITE BLOOD COUNT 8.6 10^3/uL (4.0-10.5)
[2018-07-13 06:45] LABS: ALANINE AMINOTRANSFERASE 19 U/L (9-52); ALBUMIN 2.8 g/dL (3.5-5.0); ALKALINE PHOSPHATASE 68 U/L (38-126); ANION GAP 7 (5-19); ASPARTATE AMINO TRANSFERASE 20 U/L (14-36); BILIRUBIN,DIRECT 0.3 mg/dL (0.0-0.4); BILIRUBIN,TOTAL 0.3 mg/dL (0.2-1.3); BLOOD UREA NITROGEN 21 mg/dL (7-20); CALCIUM 8.4 mg/dL (8.4-10.2); CARBON DIOXIDE 21 mmol/L (22-30); CHLORIDE 111 mmol/L (98-107); CHOLESTEROL 158.06 mg/dL (0-200); CREATINE KINASE 53 U/L (30-135); GLUCOSE 86 mg/dL (75-110); POTASSIUM 4.1 mmol/L (3.6-5.0); TOTAL PROTEIN 5.7 g/dL (6.3-8.2); TRIGLYCERIDES 103 mg/dL (<150)
[2018-07-13 06:53] LABS: CREATINE KINASE MB 0.89 ng/mL (<4.55); TROPONIN I 0.025 ng/mL
[2018-07-13 06:56] LABS: DIRECT LDL 73 mg/dL (<100)
[2018-07-13 07:14] LABS: OXCARBAZEPINE (TRILEPTAL) 70 ug/mL (10-35)
[2018-07-13] MEDS: OXCARBAZEPINE 150 MG TABLET PO SCH ×2 (08:39→21:43)
[2018-07-13] MEDS: LANSOPRAZOLE 30 MG TAB.RAP.DR PO SCH (08:39)
--- NOTE | 2018-07-13 10:42 | RADIOLOGY REPORT (SQ) ---
EXAM DESCRIPTION: MRI HEAD WITHOUT COMPLETED DATE/TIME: 07/13/2018 9:51 am REASON FOR STUDY: cva COMPARISON: 07/11/2018 TECHNIQUE: Multiplanar imaging includes non-contrasted T1, T2, FLAIR, and diffusion with ADC map seq uences. Images stored on PACS. LIMITATIONS: Patient motion. FINDINGS: ANATOMY: No anomalies. Normal vascular flow voids. Pituitary fossa normal. CSF SPACES: Atrophy induced prominence of ventricles and CSF spaces. CEREBRUM: Old left temporal lobe infarct. High signal intensity lesions scattered throughout the whi te matter on FLAIR imaging with distribution suggesting micro-vascular ischemic changes. No evidence of hemorrhage, mass, or extraaxial fluid collection. POSTERIOR FOSSA: No signal alteration. No hemorrhage. No edema, masses or mass effect. Internal fadi tory canals, cerebello-pontine angles, mastoids normal. DIFFUSION IMAGING: Negative for acute or sub-acute infarction. ORBITS: No masses. Globes normal. PARANASAL SINUSES: No fluid levels. Mucosa normal. OTHER: No other significant finding. IMPRESSION: ATROPHY AND CHRONIC MICRO-VASCULAR ISCHEMIC CHANGES. OTHERWISE NORMAL MRI OF THE BRAIN W ITHOUT INTRAVENOUS GADOLINIUM CONTRAST. EVIDENCE OF ACUTE STROKE: NO. TECHNICAL DOCUMENTATION: JOB ID: [id number] [employer]- All Rights Reserved Reading location - IP/workstation name: [email or web address]
[2018-07-13] MEDS: LAMOTRIGINE 25 MG TAB.CHEW PO SCH ×2 (11:42→21:42)
[2018-07-13] MEDS: LISINOPRIL 10 MG TABLET PO SCH (11:42)
[2018-07-13] MEDS: FLUTICASONE NASAL SPRAY 50 MCG/SPRY 120 SPRAY/16 GM NASL SCH ×2 (11:43→21:42)
[2018-07-13] MEDS: ASPIRIN/DIPYRIDAMOLE 25-200 MG 1 CAP.SR CPMP.12HR PO SCH ×2 (11:43→21:41)
[2018-07-13] MEDS: CALCITRIOL 0.25 MCG CAPSULE PO SCH (11:44)
[2018-07-13] MEDS: AMLODIPINE BESYLATE 10 MG TABLET PO SCH (11:44)
[2018-07-13] MEDS: NORMAL SALINE 1000 ML 1,000 ML IV PRN (13:34)
[2018-07-13] MEDS: BUDESONIDE/FORMOTEROL 160-4.5 MCG 60 PUFF/6 GM MDI IH SCH ×2 (13:39→21:43)
[2018-07-13] MEDS: TIOTROPIUM BROMIDE DPI 5 CAP/KIT (18 MCG/CAP) IH SCH (13:39)
[2018-07-13] MEDS: CEFTRIAXONE SODIUM 1,000 MG in DEXTROSE 5%-WATER 50 ML IV SCH (17:29)
[2018-07-13] MEDS: ATORVASTATIN CALCIUM 80 MG TABLET PO SCH (21:41)
--- NOTE | 2018-07-13 21:44 | PDOC PROGRESS REPORT ---
Subjective Progress Note for:: 07/13/18 Subjective:: She was seen by the bedside, repeat MRI did not show an acute stroke, the urine culture grew E faecalis and E. coli sensitive to ampicillin Reason For Visit: TIA Physical Exam Vital Signs: Temp Pulse Resp BP Pulse Ox 98.8 F 62 16 154/74 H 100 07/13/18 21:09 07/13/18 21:09 07/13/18 21:09 07/13/18 21:09 07/13/18 21:09 Intake & Output 07/12/18 07/13/18 07/14/18 06:59 06:59 06:59 Intake Total 1920 3092 1200 Output Total 700 1650 475 Balance 1220 1442 725 Weight 52.9 kg 55 kg General appearance: PRESENT: no acute distress Eye exam: PRESENT: PERRLA Cardiovascular exam: PRESENT: +S1, +S2 GI/Abdominal exam: PRESENT: soft Neurological exam: PRESENT: alert Results Laboratory Results: 07/13/18 06:03 07/13/18 06:03 07/11/18 07/12/18 07/12/18 08:43 18:15 21:59 WBC 8.0 RBC 2.94 L Hgb 6.5 L Hct 21.1 L MCV 72 L MCH 22.2 L MCHC 30.8 L RDW 18.7 H Plt Count 342 Seg Neutrophils % 66.7 Lymphocytes % 17.2 Monocytes % 12.7 Eosinophils % 2.6 Basophils % 0.8 Absolute Neutrophils 5.3 Absolute Lymphocytes 1.4 Absolute Monocytes 1.0 Absolute Eosinophils 0.2 Absolute Basophils 0.1 Sodium 138.7 Potassium 4.0 Chloride 109 H Carbon Dioxide 21 L Anion Gap 9 BUN 24 H Creatinine 1.24 Est GFR ( Amer) 52 L Est GFR (Non-Af Amer) 43 L Glucose 172 H Calcium 8.3 L Total Bilirubin 0.1 L AST 26 ALT 17 Alkaline Phosphatase 64 Total Protein 6.0 L Albumin 2.9 L Triglycerides Cholesterol LDL Cholesterol Direct VLDL Cholesterol HDL Cholesterol Blood Type A NEGATIVE Antibody Screen NEGATIVE 07/13/18 07/13/18 06:03 06:03 WBC 8.6 RBC 3.07 L Hgb 7.0 L Hct 22.1 L MCV 72 L MCH 22.8 L MCHC 31.6 L RDW 18.9 H Plt Count 352 Seg Neutrophils % 61.3 Lymphocytes % 22.8 Monocytes % 12.1 Eosinophils % 2.6 Basophils % 1.2 Absolute Neutrophils 5.3 Absolute Lymphocytes 2.0 Absolute Monocytes 1.0 Absolute Eosinophils 0.2 Absolute Basophils 0.1 Sodium 139.0 Potassium 4.1 Chloride 111 H Carbon Dioxide 21 L Anion Gap 7 BUN 21 H Creatinine 1.22 Est GFR ( Amer) 53 L Est GFR (Non-Af Amer) 44 L Glucose 86 Calcium 8.4 Total Bilirubin 0.3 AST 20 ALT 19 Alkaline Phosphatase 68 Total Protein 5.7 L Albumin 2.8 L Triglycerides 103 Cholesterol 158.06 LDL Cholesterol Direct 73 VLDL Cholesterol 21.0 HDL Cholesterol 50 Blood Type Antibody Screen 07/12/18 07/12/18 07/13/18 18:15 18:15 00:12 Creatine Kinase 55 48 CK-MB (CK-2) 0.91 Troponin I 0.024 07/13/18 07/13/18 07/13/18 00:12 06:03 06:03 Creatine Kinase 53 CK-MB (CK-2) 0.89 0.89 Troponin I 0.022 0.025 Impressions: Head CT 07/10/18 00:00 IMPRESSION: 1. No acute intracranial abnormality. 2. Chronic changes as before. Stable appearance of the brain. EVIDENCE OF ACUTE STROKE: NO. Renal Ultrasound 07/12/18 00:00 IMPRESSION: 1. Poorly delineated left kidney which appears smaller in size than the right kidney and echogenic suggesting chronic medical renal disease. 2. Barajas catheter as well as echogenic debris within the urinary bladder. Correlate with urinalysis. 3. Right-sided nonobstructing nephrolithiasis. Carotid Doppler Study 07/12/18 18:02 IMPRESSION: Mild scattered plaque in both carotid arteries. There is mild less than 50% stenosis of both internal carotid arteries. Head MRI 07/13/18 00:00 IMPRESSION: ATROPHY AND CHRONIC MICRO-VASCULAR ISCHEMIC CHANGES. OTHERWISE NORMAL MRI OF THE BRAIN WITHOUT INTRAVENOUS GADOLINIUM CONTRAST. EVIDENCE OF ACUTE STROKE: NO. Assessment & Plan - Diagnosis (1) Acute kidney injury Is this a current diagnosis for this admission?: Yes (2) TIA (transient ischemic attack) Qualifiers: Transient cerebral ischemia type: unspecified Qualified Code(s): G45.9 - Transient cerebral ischemic attack, unspecified Is this a current diagnosis for this admission?: Yes (3) Urinary tract infection Qualifiers: Urinary tract infection type: site unspecified Hematuria presence: without hematuria Qualified Code(s): N39.0 - Urinary tract infection, site not specified Is this a current diagnosis for this admission?: Yes (4) Dementia Qualifiers: Dementia type: unspecified type Dementia behavioral disturbance: without behavioral disturbance Qualified Code(s): F03.90 - Unspecified dementia without behavioral disturbance Is this a current diagnosis for this admission?: Yes (5) Essential hypertension Is this a current diagnosis for this admission?: Yes (6) Pulmonary hypertension Is this a current diagnosis for this admission?: Yes (7) Anemia Qualifiers: Anemia type: iron deficiency Iron deficiency anemia type: chronic blood loss Qualified Code(s): D50.0 - Iron deficiency anemia secondary to blood loss (chronic) Is this a current diagnosis for this admission?: Yes (8) Secondary hyperparathyroidism Is this a current diagnosis for this admission?: Yes (9) E. coli UTI Is this a current diagnosis for this admission?: Yes Plan: Discontinue ceftriaxone start ampicillin antibiotic (10) Enterococcus UTI Is this a current diagnosis for this admission?: Yes (11) Metabolic encephalopathy Is this a current diagnosis for this admission?: Yes
[2018-07-14] MEDS: AMPICILLIN SODIUM 500 MG in NORMAL SALINE 25 ML IV SCH ×5 (00:33→23:48)
[2018-07-14 00:46] LABS: MEAN CORPUSCULAR HEMOGLOBIN 24.5 pg (27.0-33.4); MEAN CORPUSCULAR HGB CONC 32.5 g/dL (32.0-36.0); MEAN CORPUSCULAR VOLUME 75 fl (80-97); PLATELET COUNT 293 10^3/uL (150-450); RED BLOOD COUNT 3.19 10^6/uL (3.72-5.28); RED CELL DISTRIBUTION WIDTH 20.1 % (11.5-14.0); WHITE BLOOD COUNT 7.2 10^3/uL (4.0-10.5)
[2018-07-14 00:49] LABS: HEMOGLOBIN 7.8 g/dL (12.0-15.5)
[2018-07-14] MEDS: HEPARIN SOD (PORCINE) 5,000 UNIT/ML 1 ML SYRINGE SUBCUT SCH ×3 (05:15→22:03)
[2018-07-14 06:37] LABS: ABSOLUTE BASOPHILS # (AUTO) 0.1 10^3/uL (0.0-0.2); ABSOLUTE EOSINOPHILS # (AUTO) 0.2 10^3/uL (0.0-0.6); ABSOLUTE LYMPHOCYTES (AUTO) 1.4 10^3/uL (0.5-4.7); ABSOLUTE MONOCYTES (AUTO) 0.8 10^3/uL (0.1-1.4); ABSOLUTE NEUT (AUTO) 3.8 10^3/uL (1.7-8.2); BASOPHILS % (AUTO) 0.9 % (0-2); EOSINOPHILS % (AUTO) 3.1 % (0-6); HEMATOCRIT 30.6 % (36.0-47.0); LYMPHOCYTES % (AUTO) 21.7 % (13-45); MEAN CORPUSCULAR HEMOGLOBIN 25.3 pg (27.0-33.4); MEAN CORPUSCULAR HGB CONC 32.7 g/dL (32.0-36.0); MEAN CORPUSCULAR VOLUME 77 fl (80-97); MONOCYTES % (AUTO) 12.9 % (3-13); PLATELET COUNT 282 10^3/uL (150-450); RED BLOOD COUNT 3.96 10^6/uL (3.72-5.28); RED CELL DISTRIBUTION WIDTH 19.6 % (11.5-14.0); SEGMENTED NEUTROPHILS % (AUTO) 61.4 % (42-78); TOTAL CELLS COUNTED % (AUTO) 100 %; WHITE BLOOD COUNT 6.2 10^3/uL (4.0-10.5)
[2018-07-14 07:19] LABS: ALANINE AMINOTRANSFERASE 24 U/L (9-52); ALBUMIN 2.5 g/dL (3.5-5.0); ALKALINE PHOSPHATASE 67 U/L (38-126); ANION GAP 9 (5-19); ASPARTATE AMINO TRANSFERASE 22 U/L (14-36); BILIRUBIN,DIRECT 0.2 mg/dL (0.0-0.4); BILIRUBIN,TOTAL 0.4 mg/dL (0.2-1.3); BLOOD UREA NITROGEN 15 mg/dL (7-20); CALCIUM 8.3 mg/dL (8.4-10.2); CARBON DIOXIDE 18 mmol/L (22-30); CHLORIDE 113 mmol/L (98-107); GLUCOSE 84 mg/dL (75-110); POTASSIUM 4.3 mmol/L (3.6-5.0); SODIUM 139.7 mmol/L (137-145); TOTAL PROTEIN 5.1 g/dL (6.3-8.2)
[2018-07-14] MEDS: ASPIRIN/DIPYRIDAMOLE 25-200 MG 1 CAP.SR CPMP.12HR PO SCH ×2 (10:40→22:03)
[2018-07-14] MEDS: CALCITRIOL 0.25 MCG CAPSULE PO SCH (10:40)
[2018-07-14] MEDS: LANSOPRAZOLE 30 MG TAB.RAP.DR PO SCH (10:40)
[2018-07-14] MEDS: FLUTICASONE NASAL SPRAY 50 MCG/SPRY 120 SPRAY/16 GM NASL SCH ×2 (10:41→22:04)
[2018-07-14] MEDS: METOPROLOL SUCCINATE 50 MG TAB.SR.24H PO SCH (10:41)
[2018-07-14] MEDS: AMLODIPINE BESYLATE 10 MG TABLET PO SCH (10:41)
[2018-07-14] MEDS: OXCARBAZEPINE 150 MG TABLET PO SCH ×2 (10:41→22:04)
[2018-07-14] MEDS: TIOTROPIUM BROMIDE DPI 5 CAP/KIT (18 MCG/CAP) IH SCH (10:41)
[2018-07-14] MEDS: LISINOPRIL 10 MG TABLET PO SCH (10:41)
[2018-07-14] MEDS: LAMOTRIGINE 25 MG TAB.CHEW PO SCH ×2 (10:42→22:03)
[2018-07-14] MEDS: NORMAL SALINE 1000 ML 1,000 ML IV PRN (10:43)
[2018-07-14] MEDS: BUDESONIDE/FORMOTEROL 160-4.5 MCG 60 PUFF/6 GM MDI IH SCH ×2 (10:43→22:04)
[2018-07-14] MEDS: HYDRALAZINE HCL INJ/PF 20 MG/1 ML SDV IV PRN ×2 (18:53→23:49)
--- NOTE | 2018-07-14 21:15 | PDOC PROGRESS REPORT ---
Subjective Progress Note for:: 07/14/18 Subjective:: Patient was seen by the bedside family by the bedside, she is more alert oriented, responsive Reason For Visit: TIA Physical Exam Vital Signs: Temp Pulse Resp BP Pulse Ox 98.8 F 80 22 H 151/71 H 94 07/14/18 19:52 07/14/18 19:52 07/14/18 19:52 07/14/18 19:52 07/14/18 19:52 Intake & Output 07/13/18 07/14/18 07/15/18 06:59 06:59 06:59 Intake Total 3092 3305 480 Output Total 1650 675 600 Balance 1442 2630 -120 Weight 55 kg 56.7 kg General appearance: PRESENT: no acute distress Eye exam: PRESENT: PERRLA Respiratory exam: PRESENT: clear to auscultation lashawn Cardiovascular exam: PRESENT: +S1, +S2 GI/Abdominal exam: PRESENT: soft Neurological exam: PRESENT: alert Results Laboratory Results: 07/14/18 06:27 07/14/18 06:27 07/11/18 07/14/18 07/14/18 08:43 00:20 06:27 WBC 7.2 6.2 RBC 3.19 L 3.96 Hgb 7.8 L 10.0 L D Hct 24.0 L 30.6 L MCV 75 L 77 L MCH 24.5 L 25.3 L MCHC 32.5 32.7 RDW 20.1 H 19.6 H Plt Count 293 282 Seg Neutrophils % 61.4 Lymphocytes % 21.7 Monocytes % 12.9 Eosinophils % 3.1 Basophils % 0.9 Absolute Neutrophils 3.8 Absolute Lymphocytes 1.4 Absolute Monocytes 0.8 Absolute Eosinophils 0.2 Absolute Basophils 0.1 Sodium Potassium Chloride Carbon Dioxide Anion Gap BUN Creatinine Est GFR ( Amer) Est GFR (Non-Af Amer) Glucose Calcium Total Bilirubin AST ALT Alkaline Phosphatase Total Protein Albumin Blood Type A NEGATIVE Antibody Screen NEGATIVE 07/14/18 06:27 WBC RBC Hgb Hct MCV MCH MCHC RDW Plt Count Seg Neutrophils % Lymphocytes % Monocytes % Eosinophils % Basophils % Absolute Neutrophils Absolute Lymphocytes Absolute Monocytes Absolute Eosinophils Absolute Basophils Sodium 139.7 Potassium 4.3 Chloride 113 H Carbon Dioxide 18 L Anion Gap 9 BUN 15 Creatinine 1.15 Est GFR ( Amer) 56 L Est GFR (Non-Af Amer) 47 L Glucose 84 Calcium 8.3 L Total Bilirubin 0.4 AST 22 ALT 24 Alkaline Phosphatase 67 Total Protein 5.1 L Albumin 2.5 L Blood Type Antibody Screen 07/12/18 07/12/18 07/13/18 18:15 18:15 00:12 Creatine Kinase 55 48 CK-MB (CK-2) 0.91 Troponin I 0.024 07/13/18 07/13/18 07/13/18 00:12 06:03 06:03 Creatine Kinase 53 CK-MB (CK-2) 0.89 0.89 Troponin I 0.022 0.025 Impressions: Head CT 07/10/18 00:00 IMPRESSION: 1. No acute intracranial abnormality. 2. Chronic changes as before. Stable appearance of the brain. EVIDENCE OF ACUTE STROKE: NO. Renal Ultrasound 07/12/18 00:00 IMPRESSION: 1. Poorly delineated left kidney which appears smaller in size than the right kidney and echogenic suggesting chronic medical renal disease. 2. Barajas catheter as well as echogenic debris within the urinary bladder. Correlate with urinalysis. 3. Right-sided nonobstructing nephrolithiasis. Carotid Doppler Study 07/12/18 18:02 IMPRESSION: Mild scattered plaque in both carotid arteries. There is mild less than 50% stenosis of both internal carotid arteries. Head MRI 07/13/18 00:00 IMPRESSION: ATROPHY AND CHRONIC MICRO-VASCULAR ISCHEMIC CHANGES. OTHERWISE NORMAL MRI OF THE BRAIN WITHOUT INTRAVENOUS GADOLINIUM CONTRAST. EVIDENCE OF ACUTE STROKE: NO. Assessment & Plan - Diagnosis (1) Enterococcus UTI Is this a current diagnosis for this admission?: Yes (2) E. coli UTI Is this a current diagnosis for this admission?: Yes (3) Acute kidney injury Is this a current diagnosis for this admission?: Yes (4) TIA (transient ischemic attack) Qualifiers: Transient cerebral ischemia type: unspecified Qualified Code(s): G45.9 - Transient cerebral ischemic attack, unspecified Is this a current diagnosis for this admission?: Yes (5) Urinary tract infection Qualifiers: Urinary tract infection type: site unspecified Hematuria presence: without hematuria Qualified Code(s): N39.0 - Urinary tract infection, site not specified Is this a current diagnosis for this admission?: Yes (6) Dementia Qualifiers: Dementia type: unspecified type Dementia behavioral disturbance: without behavioral disturbance Qualified Code(s): F03.90 - Unspecified dementia without behavioral disturbance Is this a current diagnosis for this admission?: Yes (7) Essential hypertension Is this a current diagnosis for this admission?: Yes (8) Pulmonary hypertension Is this a current diagnosis for this admission?: Yes (9) Anemia Qualifiers: Anemia type: iron deficiency Iron deficiency anemia type: chronic blood loss Qualified Code(s): D50.0 - Iron deficiency anemia secondary to blood loss (chronic) Is this a current diagnosis for this admission?: Yes (10) Secondary hyperparathyroidism Is this a current diagnosis for this admission?: Yes (11) Metabolic encephalopathy Is this a current diagnosis for this admission?: Yes (12) Anemia Qualifiers: Anemia type: due to chronic kidney disease Chronic kidney disease stage: stage 3 (moderate) Qualified Code(s): N18.3 - Chronic kidney disease, stage 3 (moderate); D63.1 - Anemia in chronic kidney disease; D63.1 - Anemia in chronic kidney disease Is this a current diagnosis for this admission?: Yes
[2018-07-14] MEDS: ATORVASTATIN CALCIUM 80 MG TABLET PO SCH (22:03)
[2018-07-15] MEDS: NORMAL SALINE 1000 ML 1,000 ML IV PRN (02:06)
[2018-07-15 05:01] LABS: ABSOLUTE BASOPHILS # (AUTO) 0.1 10^3/uL (0.0-0.2); ABSOLUTE EOSINOPHILS # (AUTO) 0.1 10^3/uL (0.0-0.6); ABSOLUTE LYMPHOCYTES (AUTO) 1.1 10^3/uL (0.5-4.7); ABSOLUTE MONOCYTES (AUTO) 0.8 10^3/uL (0.1-1.4); BASOPHILS % (AUTO) 0.7 % (0-2); EOSINOPHILS % (AUTO) 0.9 % (0-6); HEMATOCRIT 30.4 % (36.0-47.0); HEMOGLOBIN 10.2 g/dL (12.0-15.5); LYMPHOCYTES % (AUTO) 10.8 % (13-45); MEAN CORPUSCULAR HEMOGLOBIN 25.6 pg (27.0-33.4); MEAN CORPUSCULAR HGB CONC 33.7 g/dL (32.0-36.0); MEAN CORPUSCULAR VOLUME 76 fl (80-97); MONOCYTES % (AUTO) 7.6 % (3-13); PLATELET COUNT 270 10^3/uL (150-450); RED BLOOD COUNT 3.99 10^6/uL (3.72-5.28); RED CELL DISTRIBUTION WIDTH 20.1 % (11.5-14.0); TOTAL CELLS COUNTED % (AUTO) 100 %
[2018-07-15 05:33] LABS: ALANINE AMINOTRANSFERASE 24 U/L (9-52); ALBUMIN 2.3 g/dL (3.5-5.0); ALKALINE PHOSPHATASE 68 U/L (38-126); ANION GAP 7 (5-19); ASPARTATE AMINO TRANSFERASE 22 U/L (14-36); BILIRUBIN,DIRECT 0.2 mg/dL (0.0-0.4); BILIRUBIN,TOTAL 0.2 mg/dL (0.2-1.3); BLOOD UREA NITROGEN 12 mg/dL (7-20); CALCIUM 8.2 mg/dL (8.4-10.2); CARBON DIOXIDE 19 mmol/L (22-30); CHLORIDE 111 mmol/L (98-107); GLUCOSE 94 mg/dL (75-110); POTASSIUM 3.9 mmol/L (3.6-5.0)
[2018-07-15] MEDS: HEPARIN SOD (PORCINE) 5,000 UNIT/ML 1 ML SYRINGE SUBCUT SCH ×3 (05:50→22:16)
[2018-07-15] MEDS: AMPICILLIN SODIUM 500 MG in NORMAL SALINE 25 ML IV SCH ×4 (05:50→23:49)
[2018-07-15] MEDS: OXCARBAZEPINE 150 MG TABLET PO SCH ×2 (09:59→22:13)
[2018-07-15] MEDS: LANSOPRAZOLE 30 MG TAB.RAP.DR PO SCH (09:59)
[2018-07-15] MEDS: METOPROLOL SUCCINATE 50 MG TAB.SR.24H PO SCH (10:03)
[2018-07-15] MEDS: HYDRALAZINE HCL INJ/PF 20 MG/1 ML SDV IV PRN ×2 (10:03→19:55)
[2018-07-15] MEDS: AMLODIPINE BESYLATE 10 MG TABLET PO SCH (10:03)
[2018-07-15] MEDS: LISINOPRIL 10 MG TABLET PO SCH ×2 (10:03→22:13)
[2018-07-15] MEDS: CALCITRIOL 0.25 MCG CAPSULE PO SCH (10:03)
[2018-07-15] MEDS: TIOTROPIUM BROMIDE DPI 5 CAP/KIT (18 MCG/CAP) IH SCH (10:04)
[2018-07-15] MEDS: FLUTICASONE NASAL SPRAY 50 MCG/SPRY 120 SPRAY/16 GM NASL SCH ×2 (10:04→22:17)
[2018-07-15] MEDS: LAMOTRIGINE 25 MG TAB.CHEW PO SCH ×2 (10:04→22:13)
[2018-07-15] MEDS: BUDESONIDE/FORMOTEROL 160-4.5 MCG 60 PUFF/6 GM MDI IH SCH ×2 (10:04→22:17)
[2018-07-15] MEDS: ASPIRIN/DIPYRIDAMOLE 25-200 MG 1 CAP.SR CPMP.12HR PO SCH ×2 (10:04→22:13)
--- NOTE | 2018-07-15 20:07 | PDOC PROGRESS REPORT ---
Subjective Progress Note for:: 07/15/18 Subjective:: Patient is seen by the bedside, she is more alert, Reason For Visit: TIA Physical Exam Vital Signs: Temp Pulse Resp BP Pulse Ox 98.5 F 92 18 180/86 H 93 07/15/18 15:27 07/15/18 15:27 07/15/18 15:27 07/15/18 19:48 07/15/18 15:27 Intake & Output 07/14/18 07/15/18 07/16/18 06:59 06:59 06:59 Intake Total 3305 1675 225 Output Total 675 1250 450 Balance 2630 425 -225 Weight 56.7 kg 58.1 kg General appearance: PRESENT: no acute distress Eye exam: PRESENT: PERRLA Respiratory exam: PRESENT: clear to auscultation lashawn Cardiovascular exam: PRESENT: +S1, +S2 GI/Abdominal exam: PRESENT: soft Neurological exam: PRESENT: alert Results Laboratory Results: 07/15/18 04:43 07/15/18 04:43 07/15/18 07/15/18 04:43 04:43 WBC 10.0 RBC 3.99 Hgb 10.2 L Hct 30.4 L MCV 76 L MCH 25.6 L MCHC 33.7 RDW 20.1 H Plt Count 270 Seg Neutrophils % 80.0 H Lymphocytes % 10.8 L Monocytes % 7.6 Eosinophils % 0.9 Basophils % 0.7 Absolute Neutrophils 8.0 Absolute Lymphocytes 1.1 Absolute Monocytes 0.8 Absolute Eosinophils 0.1 Absolute Basophils 0.1 Sodium 137.0 Potassium 3.9 Chloride 111 H Carbon Dioxide 19 L Anion Gap 7 BUN 12 Creatinine 1.18 Est GFR ( Amer) 55 L Est GFR (Non-Af Amer) 45 L Glucose 94 Calcium 8.2 L Total Bilirubin 0.2 AST 22 ALT 24 Alkaline Phosphatase 68 Total Protein 5.0 L Albumin 2.3 L 07/12/18 07/12/18 07/13/18 18:15 18:15 00:12 Creatine Kinase 55 48 CK-MB (CK-2) 0.91 Troponin I 0.024 07/13/18 07/13/18 07/13/18 00:12 06:03 06:03 Creatine Kinase 53 CK-MB (CK-2) 0.89 0.89 Troponin I 0.022 0.025 Impressions: Head CT 07/10/18 00:00 IMPRESSION: 1. No acute intracranial abnormality. 2. Chronic changes as before. Stable appearance of the brain. EVIDENCE OF ACUTE STROKE: NO. Renal Ultrasound 07/12/18 00:00 IMPRESSION: 1. Poorly delineated left kidney which appears smaller in size than the right kidney and echogenic suggesting chronic medical renal disease. 2. Barajas catheter as well as echogenic debris within the urinary bladder. Correlate with urinalysis. 3. Right-sided nonobstructing nephrolithiasis. Carotid Doppler Study 07/12/18 18:02 IMPRESSION: Mild scattered plaque in both carotid arteries. There is mild less than 50% stenosis of both internal carotid arteries. Head MRI 07/13/18 00:00 IMPRESSION: ATROPHY AND CHRONIC MICRO-VASCULAR ISCHEMIC CHANGES. OTHERWISE NORMAL MRI OF THE BRAIN WITHOUT INTRAVENOUS GADOLINIUM CONTRAST. EVIDENCE OF ACUTE STROKE: NO. Assessment & Plan - Diagnosis (1) Enterococcus UTI Is this a current diagnosis for this admission?: Yes (2) E. coli UTI Is this a current diagnosis for this admission?: Yes (3) Acute kidney injury Is this a current diagnosis for this admission?: Yes (4) TIA (transient ischemic attack) Qualifiers: Transient cerebral ischemia type: unspecified Qualified Code(s): G45.9 - Transient cerebral ischemic attack, unspecified Is this a current diagnosis for this admission?: Yes (5) Urinary tract infection Qualifiers: Urinary tract infection type: site unspecified Hematuria presence: without hematuria Qualified Code(s): N39.0 - Urinary tract infection, site not specified Is this a current diagnosis for this admission?: Yes (6) Dementia Qualifiers: Dementia type: unspecified type Dementia behavioral disturbance: without behavioral disturbance Qualified Code(s): F03.90 - Unspecified dementia without behavioral disturbance Is this a current diagnosis for this admission?: Yes (7) Essential hypertension Is this a current diagnosis for this admission?: Yes (8) Pulmonary hypertension Is this a current diagnosis for this admission?: Yes (9) Anemia Qualifiers: Anemia type: iron deficiency Iron deficiency anemia type: chronic blood loss Qualified Code(s): D50.0 - Iron deficiency anemia secondary to blood loss (chronic) Is this a current diagnosis for this admission?: Yes (10) Secondary hyperparathyroidism Is this a current diagnosis for this admission?: Yes (11) Metabolic encephalopathy Is this a current diagnosis for this admission?: Yes (12) Anemia Qualifiers: Anemia type: due to chronic kidney disease Chronic kidney disease stage: stage 3 (moderate) Qualified Code(s): N18.3 - Chronic kidney disease, stage 3 (moderate); D63.1 - Anemia in chronic kidney disease; D63.1 - Anemia in chronic kidney disease Is this a current diagnosis for this admission?: Yes
[2018-07-15] MEDS: ATORVASTATIN CALCIUM 80 MG TABLET PO SCH (22:13)
[2018-07-16] MEDS: HEPARIN SOD (PORCINE) 5,000 UNIT/ML 1 ML SYRINGE SUBCUT SCH ×3 (05:29→23:28)
[2018-07-16] MEDS: AMPICILLIN SODIUM 500 MG in NORMAL SALINE 25 ML IV SCH ×3 (05:29→17:58)
[2018-07-16] MEDS: HYDRALAZINE HCL INJ/PF 20 MG/1 ML SDV IV PRN ×2 (05:37→23:21)
[2018-07-16] MEDS: LISINOPRIL 10 MG TABLET PO SCH ×2 (09:54→23:24)
[2018-07-16] MEDS: LANSOPRAZOLE 30 MG TAB.RAP.DR PO SCH (09:55)
[2018-07-16] MEDS: AMLODIPINE BESYLATE 10 MG TABLET PO SCH (09:55)
[2018-07-16] MEDS: FLUTICASONE NASAL SPRAY 50 MCG/SPRY 120 SPRAY/16 GM NASL SCH ×2 (09:55→23:40)
[2018-07-16] MEDS: LAMOTRIGINE 25 MG TAB.CHEW PO SCH ×2 (09:55→23:26)
[2018-07-16] MEDS: OXCARBAZEPINE 150 MG TABLET PO SCH ×2 (09:55→23:26)
[2018-07-16] MEDS: ASPIRIN/DIPYRIDAMOLE 25-200 MG 1 CAP.SR CPMP.12HR PO SCH ×2 (09:55→23:26)
[2018-07-16] MEDS: METOPROLOL SUCCINATE 50 MG TAB.SR.24H PO SCH (09:55)
[2018-07-16] MEDS: CALCITRIOL 0.25 MCG CAPSULE PO SCH (09:55)
[2018-07-16] MEDS: BUDESONIDE/FORMOTEROL 160-4.5 MCG 60 PUFF/6 GM MDI IH SCH ×2 (09:56→23:41)
[2018-07-16] MEDS: TIOTROPIUM BROMIDE DPI 5 CAP/KIT (18 MCG/CAP) IH SCH (11:07)
--- NOTE | 2018-07-16 15:10 | PDOC PROGRESS REPORT ---
Subjective Progress Note for:: 07/16/18 Subjective:: She was seen by the bedside she has fluctuating mental status,, will DC Barajas catheter, hopefully discharge to [facility] tomorrow Reason For Visit: TIA Physical Exam Vital Signs: Temp Pulse Resp BP Pulse Ox 99.2 F 78 22 H 156/64 H 93 07/16/18 12:15 07/16/18 12:15 07/16/18 12:15 07/16/18 12:15 07/16/18 12:15 Intake & Output 07/15/18 07/16/18 07/17/18 06:59 06:59 06:59 Intake Total 1675 360 200 Output Total 1250 600 200 Balance 425 -240 0 Weight 58.1 kg 58 kg General appearance: PRESENT: no acute distress Eye exam: PRESENT: PERRLA Respiratory exam: PRESENT: clear to auscultation lashawn Cardiovascular exam: PRESENT: +S1, +S2 GI/Abdominal exam: PRESENT: soft Neurological exam: PRESENT: alert Results Laboratory Results: 07/15/18 04:43 07/15/18 04:43 07/12/18 07/12/18 07/13/18 18:15 18:15 00:12 Creatine Kinase 55 48 CK-MB (CK-2) 0.91 Troponin I 0.024 07/13/18 07/13/18 07/13/18 00:12 06:03 06:03 Creatine Kinase 53 CK-MB (CK-2) 0.89 0.89 Troponin I 0.022 0.025 Impressions: Head CT 07/10/18 00:00 IMPRESSION: 1. No acute intracranial abnormality. 2. Chronic changes as before. Stable appearance of the brain. EVIDENCE OF ACUTE STROKE: NO. Renal Ultrasound 07/12/18 00:00 IMPRESSION: 1. Poorly delineated left kidney which appears smaller in size than the right kidney and echogenic suggesting chronic medical renal disease. 2. Barajas catheter as well as echogenic debris within the urinary bladder. Correlate with urinalysis. 3. Right-sided nonobstructing nephrolithiasis. Carotid Doppler Study 07/12/18 18:02 IMPRESSION: Mild scattered plaque in both carotid arteries. There is mild less than 50% stenosis of both internal carotid arteries. Head MRI 07/13/18 00:00 IMPRESSION: ATROPHY AND CHRONIC MICRO-VASCULAR ISCHEMIC CHANGES. OTHERWISE NORMAL MRI OF THE BRAIN WITHOUT INTRAVENOUS GADOLINIUM CONTRAST. EVIDENCE OF ACUTE STROKE: NO. Assessment & Plan - Diagnosis (1) Enterococcus UTI Is this a current diagnosis for this admission?: Yes (2) E. coli UTI Is this a current diagnosis for this admission?: Yes (3) Acute kidney injury Is this a current diagnosis for this admission?: Yes (4) TIA (transient ischemic attack) Qualifiers: Transient cerebral ischemia type: unspecified Qualified Code(s): G45.9 - Transient cerebral ischemic attack, unspecified Is this a current diagnosis for this admission?: Yes (5) Urinary tract infection Qualifiers: Urinary tract infection type: site unspecified Hematuria presence: without hematuria Qualified Code(s): N39.0 - Urinary tract infection, site not specified Is this a current diagnosis for this admission?: Yes (6) Dementia Qualifiers: Dementia type: unspecified type Dementia behavioral disturbance: without behavioral disturbance Qualified Code(s): F03.90 - Unspecified dementia without behavioral disturbance Is this a current diagnosis for this admission?: Yes (7) Essential hypertension Is this a current diagnosis for this admission?: Yes (8) Pulmonary hypertension Is this a current diagnosis for this admission?: Yes (9) Anemia Qualifiers: Anemia type: iron deficiency Iron deficiency anemia type: chronic blood loss Qualified Code(s): D50.0 - Iron deficiency anemia secondary to blood loss (chronic) Is this a current diagnosis for this admission?: Yes (10) Secondary hyperparathyroidism Is this a current diagnosis for this admission?: Yes (11) Metabolic encephalopathy Is this a current diagnosis for this admission?: Yes (12) Anemia Qualifiers: Anemia type: due to chronic kidney disease Chronic kidney disease stage: stage 3 (moderate) Qualified Code(s): N18.3 - Chronic kidney disease, stage 3 (moderate); D63.1 - Anemia in chronic kidney disease; D63.1 - Anemia in chronic kidney disease Is this a current diagnosis for this admission?: Yes
--- NOTE | 2018-07-16 19:23 | EKG REPORT ---
SEVERITY:- ABNORMAL ECG - SINUS RHYTHM CONSIDER POSTERIOR INFARCT NONSPECIFIC ST-T CHANGES : Confirmed by: Lesly Estrada 16-Jul-2018 19:22:30
[2018-07-16] MEDS ORDERED: NORMAL SALINE 1000 ML 1,000 ML IV PRN (20:05)
[2018-07-16] MEDS: ATORVASTATIN CALCIUM 80 MG TABLET PO SCH (23:24)
[2018-07-17] MEDS: AMPICILLIN SODIUM 500 MG in NORMAL SALINE 25 ML IV SCH ×4 (00:53→18:20)
[2018-07-17] MEDS: HEPARIN SOD (PORCINE) 5,000 UNIT/ML 1 ML SYRINGE SUBCUT SCH ×2 (06:11→14:45)
[2018-07-17] MEDS: OXCARBAZEPINE 150 MG TABLET PO SCH (10:48)
[2018-07-17] MEDS: METOPROLOL SUCCINATE 50 MG TAB.SR.24H PO SCH (10:48)
[2018-07-17] MEDS: LAMOTRIGINE 25 MG TAB.CHEW PO SCH (10:48)
[2018-07-17] MEDS: CALCITRIOL 0.25 MCG CAPSULE PO SCH (10:48)
[2018-07-17] MEDS: ASPIRIN/DIPYRIDAMOLE 25-200 MG 1 CAP.SR CPMP.12HR PO SCH (10:49)
[2018-07-17] MEDS: TIOTROPIUM BROMIDE DPI 5 CAP/KIT (18 MCG/CAP) IH SCH (10:49)
[2018-07-17] MEDS: FLUTICASONE NASAL SPRAY 50 MCG/SPRY 120 SPRAY/16 GM NASL SCH (10:49)
[2018-07-17] MEDS: LANSOPRAZOLE 30 MG TAB.RAP.DR PO SCH (10:49)
[2018-07-17] MEDS: AMLODIPINE BESYLATE 10 MG TABLET PO SCH (10:49)
[2018-07-17] MEDS: BUDESONIDE/FORMOTEROL 160-4.5 MCG 60 PUFF/6 GM MDI IH SCH (10:49)
[2018-07-17] MEDS: LISINOPRIL 10 MG TABLET PO SCH (10:52)
[2018-07-17 10:57] LABS: ABSOLUTE BASOPHILS # (AUTO) 0.1 10^3/uL (0.0-0.2); ABSOLUTE EOSINOPHILS # (AUTO) 0.2 10^3/uL (0.0-0.6); ABSOLUTE LYMPHOCYTES (AUTO) 1.2 10^3/uL (0.5-4.7); ABSOLUTE MONOCYTES (AUTO) 0.9 10^3/uL (0.1-1.4); ABSOLUTE NEUT (AUTO) 5.3 10^3/uL (1.7-8.2); BASOPHILS % (AUTO) 1.5 % (0-2); EOSINOPHILS % (AUTO) 2.6 % (0-6); HEMATOCRIT 30.5 % (36.0-47.0); LYMPHOCYTES % (AUTO) 15.4 % (13-45); MEAN CORPUSCULAR HEMOGLOBIN 25.5 pg (27.0-33.4); MEAN CORPUSCULAR HGB CONC 32.9 g/dL (32.0-36.0); MEAN CORPUSCULAR VOLUME 78 fl (80-97); MONOCYTES % (AUTO) 11.7 % (3-13); PLATELET COUNT 282 10^3/uL (150-450); RED BLOOD COUNT 3.93 10^6/uL (3.72-5.28); RED CELL DISTRIBUTION WIDTH 21.7 % (11.5-14.0); SEGMENTED NEUTROPHILS % (AUTO) 68.8 % (42-78); TOTAL CELLS COUNTED % (AUTO) 100 %; WHITE BLOOD COUNT 7.8 10^3/uL (4.0-10.5)
[2018-07-17 11:13] LABS: ANION GAP 8 (5-19); BLOOD UREA NITROGEN 11 mg/dL (7-20); CALCIUM 8.7 mg/dL (8.4-10.2); CARBON DIOXIDE 20 mmol/L (22-30); CHLORIDE 111 mmol/L (98-107); GLUCOSE 79 mg/dL (75-110); SODIUM 138.8 mmol/L (137-145)
--- NOTE | 2018-07-17 13:55 | PDOC TRANSFER SUMMARY ---
General - Admit/Disc Date/PCP Admission Date/Primary Care Provider: 07/10/18 16:45 JOE CHIU MD Discharge Date: 07/17/18 - Discharge Diagnosis (1) Enterococcus UTI Is this a current diagnosis for this admission?: Yes (2) E. coli UTI Is this a current diagnosis for this admission?: Yes (3) Acute kidney injury Is this a current diagnosis for this admission?: Yes (4) TIA (transient ischemic attack) Is this a current diagnosis for this admission?: Yes (5) Urinary tract infection Is this a current diagnosis for this admission?: Yes (6) Dementia Is this a current diagnosis for this admission?: Yes (7) Essential hypertension Is this a current diagnosis for this admission?: Yes (8) Pulmonary hypertension Is this a current diagnosis for this admission?: Yes (9) Anemia Is this a current diagnosis for this admission?: Yes (10) Secondary hyperparathyroidism Is this a current diagnosis for this admission?: Yes (11) Metabolic encephalopathy Is this a current diagnosis for this admission?: Yes (12) Anemia Is this a current diagnosis for this admission?: Yes (13) Chronic kidney disease, stage 3 Is this a current diagnosis for this admission?: Yes - Additional Information Resuscitation Status: Full Code Home Medications: Albuterol Sulfate [Ventolin Hfa] 1 puff IH Q4HP PRN 03/09/17 Amlodipine Besylate [Norvasc 10 mg Tablet] 10 mg PO QAM 03/09/17 Aspirin/Dipyridamole [Aggrenox 25 mg-200 mg Capsule] 1 cap PO Q12 03/09/17 Budesonide/Formoterol Fumarate [Symbicort HFA 160-4.5 mcg Inhaler 6 gm] 2 puff IH Q12 03/09/17 Fluticasone Propionate [Flonase Nasal [place] 50 Mcg/[place] 16 gm] 2 spray NASL Q12 03/09/17 Lamotrigine [Lamictal] 25 mg PO Q12 03/09/17 Metoprolol Succinate [Toprol Xl 50 mg Tab.sr] 50 mg PO QAM 03/09/17 Omeprazole 20 mg PO Q6AM 03/09/17 Oxcarbazepine [Trileptal] 600 mg PO QHS 03/09/17 Tiotropium [place] [Spiriva Handihaler 5 Cap/Kit (18 Mcg/Cap)] 18 mcg IH DAILY 03/09/17 Tramadol HCl [Ultram 50 mg Tablet] 50 mg PO Q6HP PRN 03/09/17 Acetaminophen [Tylenol Extra Strength 500 mg Tablet] 1 tab PO Q8HP PRN 07/11/18 Acetaminophen [Tylenol 325 mg Tablet] 650 mg PO Q6HP PRN tablet 07/17/18 Albuterol Sulfate [Proair HFA Inhalation Aerosol 8.5 gm MDI] 1 puff IH Q4HP PRN hfa.aer.ad 07/17/18 Amlodipine Besylate [Norvasc 10 mg Tablet] 10 mg PO DAILY tablet 07/17/18 Aspirin/Dipyridamole [Aggrenox 25 mg/200 mg Capsule SA] 1 cap.sr PO Q12 cpmp.12hr 07/17/18 Atorvastatin Calcium [Lipitor 80 mg Tablet] 40 mg PO QHS #0 07/17/18 Budesonide/Formoterol Fumarate [Symbicort HFA 160-4.5 mcg Inhaler 6 gm] 2 puff IH Q12 inhaler 07/17/18 Calcitriol [Rocaltrol 0.25 mcg Capsule] 0.25 mcg PO DAILY capsule 07/17/18 Lamotrigine [Lamictal 25 mg Chewable Tab] 25 mg PO Q12 tab.chew 07/17/18 Lisinopril [Prinivil 10 mg Tablet] 40 mg PO Q12 tablet 07/17/18 Oxcarbazepine [Trileptal 150 mg Tablet] 600 mg PO QHS tablet 07/17/18 History of Present Illness Admission Date/PCP: 07/10/18 16:45 JOE CHIU MD History of Present Illness: ROSY PIKE is a 72 year old female, She has a history of chronic obstructive pulmonary disease, dementia, I saw yesterday in the [facility] at routine rounds, her speech was slurred, she has facial droop and loss of nasolabial fold of the left face, stroke was suspected, I advised the [facility] staff to transfer out to the emergency room for further evaluation. She was evaluated in the emergency room CT head was done, it was negative for any acute stroke, the blood work showed serum creatinine of 3, grossly abnormal urinalysis. She has a base creatinine of 1.3 so clearly there is acute kidney injury, it was felt to be most likely prerenal in nature. 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 On admission the speech was slurred and she has depressed sensorium, she regained full alertness 24 hours after admission, it was felt that her presentation was more consistent with TIA. Urine culture grew a E. coli and Enterococcus faecalis, she was initially empirically treated with IV Rocephin for UTI this was changed to ampicillin, both organisms are sensitive to ampicillin. She had 2 MRI done of the head on this admission, no acute CVA was demonstrated. She also have acute on chronic kidney disease, kidney ultrasound was done, it demonstrated small left kidney echogenic it measures 6.9 x 3.3 x 3.2 cm, there was no hydronephrosis. The PT was elevated consistent with secondary hyperparathyroidism. Physical Exam Vital Signs: Temp Pulse Resp BP Pulse Ox 98.4 F 82 18 157/69 H 95 07/17/18 07:45 07/17/18 07:45 07/17/18 07:45 07/17/18 07:45 07/17/18 07:45 Intake & Output 07/16/18 07/17/18 07/18/18 06:59 06:59 06:59 Intake Total 360 600 Output Total 600 450 Balance -240 150 Weight 58 kg 57.3 kg General appearance: PRESENT: no acute distress Eye exam: PRESENT: PERRLA Respiratory exam: PRESENT: clear to auscultation lashawn Cardiovascular exam: PRESENT: +S1, +S2 GI/Abdominal exam: PRESENT: soft Neurological exam: PRESENT: alert Results Laboratory Results: 07/17/18 10:08 07/17/18 10:08 07/17/18 07/17/18 10:08 10:08 WBC 7.8 RBC 3.93 Hgb 10.0 L Hct 30.5 L MCV 78 L MCH 25.5 L MCHC 32.9 RDW 21.7 H Plt Count 282 Seg Neutrophils % 68.8 Lymphocytes % 15.4 Monocytes % 11.7 Eosinophils % 2.6 Basophils % 1.5 Absolute Neutrophils 5.3 Absolute Lymphocytes 1.2 Absolute Monocytes 0.9 Absolute Eosinophils 0.2 Absolute Basophils 0.1 Sodium 138.8 Potassium 4.0 Chloride 111 H Carbon Dioxide 20 L Anion Gap 8 BUN 11 Creatinine 1.17 Est GFR ( Amer) 55 L Est GFR (Non-Af Amer) 46 L Glucose 79 Calcium 8.7 07/12/18 07/12/18 07/13/18 18:15 18:15 00:12 Creatine Kinase 55 48 CK-MB (CK-2) 0.91 Troponin I 0.024 07/13/18 07/13/18 07/13/18 00:12 06:03 06:03 Creatine Kinase 53 CK-MB (CK-2) 0.89 0.89 Troponin I 0.022 0.025 07/17/18 10:08 Creatine Kinase CK-MB (CK-2) Troponin I 0.024 Impressions: Head CT 07/10/18 00:00 IMPRESSION: 1. No acute intracranial abnormality. 2. Chronic changes as before. Stable appearance of the brain. EVIDENCE OF ACUTE STROKE: NO. Renal Ultrasound 07/12/18 00:00 IMPRESSION: 1. Poorly delineated left kidney which appears smaller in size than the right kidney and echogenic suggesting chronic medical renal disease. 2. Barajas catheter as well as echogenic debris within the urinary bladder. Correlate with urinalysis. 3. Right-sided nonobstructing nephrolithiasis. Carotid Doppler Study 07/12/18 18:02 IMPRESSION: Mild scattered plaque in both carotid arteries. There is mild less than 50% stenosis of both internal carotid arteries. Head MRI 07/13/18 00:00 IMPRESSION: ATROPHY AND CHRONIC MICRO-VASCULAR ISCHEMIC CHANGES. OTHERWISE NORMAL MRI OF THE BRAIN WITHOUT INTRAVENOUS GADOLINIUM CONTRAST. EVIDENCE OF ACUTE STROKE: NO. Qualifiers - * PATIENT BEING DISCHARGED WITH ANY OF THE FOLLOWING DIAGNOSIS: No
[2018-07-17 20:06] VITALS: BP 159/66
== END 2018-07-17 20:13 | DRG 683 ==
LOC: ER 14:09 → UNDOADMIN 16:45 → EH 16:45 → 4N 18:34 → EH 18:34 → 4N 07-11 14:39 → 3W 07-12 16:54 → 4N 07-12 16:54
PROVIDERS: ADMIT Internal Medicine; ATTEND Internal Medicine
PROC: 30233N1 Transfusion of Nonautologous Red Blood Cells into Peripheral Vein, Percutaneous Approach (ICD-10-PCS; principal; 2018-07-13)
DX: N17.9 Acute kidney failure, unspecified (principal); G45.9 Transient cerebral ischemic attack, unspecified; N39.0 Urinary tract infection, site not specified; D63.1 Anemia in chronic kidney disease; I12.9 Hypertensive chronic kidney disease with stage 1 through stage 4 chronic kidney disease, or unspecified chronic kidney disease; N25.81 Secondary hyperparathyroidism of renal origin; E87.5 Hyperkalemia; N18.3 Chronic kidney disease, stage 3 (moderate); E78.00 Pure hypercholesterolemia, unspecified; J44.9 Chronic obstructive pulmonary disease, unspecified; D50.0 Iron deficiency anemia secondary to blood loss (chronic); R41.82 Altered mental status, unspecified; F17.210 Nicotine dependence, cigarettes, uncomplicated; F03.90 Unspecified dementia, unspecified severity, without behavioral disturbance, psychotic disturbance, mood disturbance, and anxiety; I27.20 Pulmonary hypertension, unspecified; B96.20 Unspecified Escherichia coli [E. coli] as the cause of diseases classified elsewhere; Z86.73 Personal history of transient ischemic attack (TIA), and cerebral infarction without residual deficits; Z79.51 Long term (current) use of inhaled steroids; Z79.899 Other long term (current) drug therapy
CPT/HCPCS: 36415; 36430; 70450; 70551; 76775; 80048; 80053; 80061; 80175; 80183; 80307; 81001; 82306; 82550; 82553; 82607; 82728; 82746; 82962; 83540; 83550; 83735; 83970; 84484; 85025; 85027; 85045; 86850; 86900; 86901; 86920; 87040; 87077; 87086; 87088; 87186; 90686; 93005; 93010; 93880; 96361; 96374; 99285; G8978-GP; G8979-GP; G8987-GO; G8988-GO; J0290; J0360; J0696; J1644; J1650; J3490; J7030; J7050; P9016

== ENCOUNTER 2018-10-25 11:45 | Inpatient (IN) | payer MEDICARE, MEDICAID ==
[2018-10-25 12:23] LABS: APPEARANCE,URINE CLEAR; BILIRUBIN,URINE NEGATIVE (NEGATIVE); COLOR,URINE YELLOW; GLUCOSE, URINE NEGATIVE (NEGATIVE); KETONES,URINE NEGATIVE (NEGATIVE); LEUKOCYTE ESTERASE,URINE SMALL (NEGATIVE); NITRITE,URINE NEGATIVE (NEGATIVE); PROTEIN,URINE 30 mg/dL (NEGATIVE); URINE SPECIFIC GRAVITY 1.017; UROBILINOGEN,URINE NEGATIVE mg/dL (<2.0)
--- NOTE | 2018-10-25 13:17 | RADIOLOGY REPORT (SQ) ---
EXAM DESCRIPTION: CHEST SINGLE VIEW COMPLETED DATE/TIME: 10/25/2018 1:09 pm REASON FOR STUDY: Fever for 3 days plus cough COMPARISON: 08/10/2016. NUMBER OF VIEWS: One view. TECHNIQUE: Single frontal radiographic view of the chest acquired. LIMITATIONS: Rotated. FINDINGS: LUNGS AND PLEURA: No opacities, masses or pneumothorax. No pleural effusion. Attenuated bl ood vessels and flattened jennifer-diaphragms. MEDIASTINUM AND HILAR STRUCTURES: No masses. Contour normal. HEART AND VASCULAR STRUCTURES: Heart normal in size. Normal vasculature. BONES: No acute findings. HARDWARE: None in the chest. OTHER: No other significant finding. IMPRESSION: COPD. NO ACUTE RADIOGRAPHIC FINDING IN THE CHEST. TECHNICAL DOCUMENTATION: JOB ID: [id number] [employer]- All Rights Reserved Reading location - IP/workstation name: [email or web address]
[2018-10-25 14:39] LABS: ABSOLUTE LYMPHOCYTES (AUTO) 0.6 10^3/uL (0.5-4.7); ABSOLUTE MONOCYTES (AUTO) 0.4 10^3/uL (0.1-1.4); ABSOLUTE NEUT (AUTO) 5.2 10^3/uL (1.7-8.2); BASOPHILS % (AUTO) 0.4 % (0-2); EOSINOPHILS % (AUTO) 0.4 % (0-6); HEMATOCRIT 33.2 % (36.0-47.0); HEMOGLOBIN 10.8 g/dL (12.0-15.5); LYMPHOCYTES % (AUTO) 9.8 % (13-45); MEAN CORPUSCULAR HEMOGLOBIN 30.7 pg (27.0-33.4); MEAN CORPUSCULAR HGB CONC 32.6 g/dL (32.0-36.0); MEAN CORPUSCULAR VOLUME 94 fl (80-97); MONOCYTES % (AUTO) 6.5 % (3-13); PLATELET COUNT 216 10^3/uL (150-450); RED BLOOD COUNT 3.53 10^6/uL (3.72-5.28); RED CELL DISTRIBUTION WIDTH 18.5 % (11.5-14.0); SEGMENTED NEUTROPHILS % (AUTO) 82.9 % (42-78); TOTAL CELLS COUNTED % (AUTO) 100 %; WHITE BLOOD COUNT 6.2 10^3/uL (4.0-10.5)
[2018-10-25 14:50] LABS: BLOOD UREA NITROGEN 44 mg/dL (7-20); CALCIUM 9.6 mg/dL (8.4-10.2); GLUCOSE 100 mg/dL (75-110)
[2018-10-25 14:51] LABS: ALANINE AMINOTRANSFERASE 56 U/L (9-52); ALBUMIN 3.9 g/dL (3.5-5.0); ALKALINE PHOSPHATASE 95 U/L (38-126); ANION GAP 7 (5-19); ASPARTATE AMINO TRANSFERASE 84 U/L (14-36); BILIRUBIN,DIRECT 0.2 mg/dL (0.0-0.4); BILIRUBIN,TOTAL 0.2 mg/dL (0.2-1.3); CARBON DIOXIDE 27 mmol/L (22-30); CHLORIDE 111 mmol/L (98-107); SODIUM 144.8 mmol/L (137-145); TOTAL PROTEIN 6.8 g/dL (6.3-8.2)
[2018-10-25] MEDS ORDERED: CEFTRIAXONE INJ 1000 MG VIAL IV ONE (15:17)
[2018-10-25] MEDS ORDERED: NORMAL SALINE 1000 ML 1,000 ML IV ONE (15:18)
--- NOTE | 2018-10-25 15:44 | ER Document Report ---
ED General - General Chief Complaint: Fever Stated Complaint: FEVER Time Seen by Provider: 10/25/18 12:34 Notes: Patient was sent from her residence at a local snf, [place] for fever for the past 3 days. Patient is unable to speak or relate any history. She has a history of dementia. We are going on very limited nursing notes and EMS report regarding patient's present illness. Patient has a history of COPD. Also history of kidney disease. Has had urinary tract infections in the past. Cannot obtain further information at this time. TRAVEL OUTSIDE OF THE [place] IN LAST 30 DAYS: No - Related Data Allergies/Adverse Reactions: erythromycin base [Erythromycin Base] Allergy (Severe, Verified 07/11/18 09:25) Paranoid latex [Latex] Allergy (Intermediate, Verified 07/11/18 09:25) Blisters Past Medical History - Social History Smoking Status: Unknown if Ever Smoked Family History: Reviewed & Not Pertinent, COPD, Hypertension Patient has suicidal ideation: No Patient has homicidal ideation: No - Past Medical History Cardiac Medical History: Reports: Hx Hypercholesterolemia, Hx Hypertension Pulmonary Medical History: Reports: Hx Bronchitis, Hx COPD, Hx Pneumonia Neurological Medical History: Reports: Hx Cerebrovascular Accident Endocrine Medical History: Reports: Hx Hyperthyroidism Musculoskeletal Medical History: Reports Hx Arthritis Psychiatric Medical History: Reports: Hx Depression Traumatic Medical History: Reports: Hx Fractures Past Surgical History: Reports: Hx Appendectomy, Hx Cholecystectomy - Gallbladder was not seen on a recent CT scan, no clips were noted, it february b. Denies: Hx Hysterectomy - Immunizations Hx Diphtheria, Pertussis, Tetanus Vaccination: - unknown Hx Pneumococcal Vaccination: 10/11/06 Review of Systems - Review of Systems -: Yes ROS unobtainable due to patient's medical condition Physical Exam - Vital signs Vitals: Resp 27 H 10/25/18 12:00 Interpretation: Normal Notes: PHYSICAL EXAMINATION: GENERAL: in no acute distress. Vital signs are all essentially normal. Afebrile at this time. Patient does not follow commands nor does she answer questions. When I speak to her, she looks my way but that is all she does. HEAD: Atraumatic, normocephalic. EYES: Pupils equal round and reactive to light, extraocular movements intact. ENT: oropharynx clear without exudates. Moist mucous membranes are dry. NECK: Normal range of motion, supple. LUNGS: Breath sounds clear and equal bilaterally. HEART: Regular rate and rhythm without murmurs. ABDOMEN: Soft, nontender. No guarding or rebound. No masses. BACK: No tenderness throughout entire back. EXTREMITIES: Normal range of motion without pain. NEUROLOGICAL: Limited neurologic function. Awake and turns head to voice of examiner, but does not follow any commands. Does not answer any questions. PSYCH: Unable to assess. SKIN: Warm, dry, no rashes. Course - Re-evaluation Re-evalutation: 10/25/18 17:01 Patient's labs suggest she may have a UTI. Cath specimen shows white cells as well as +[address] Long who will admit the patient for IV fluid hydration and IV antibiotics. Patient was given a gram of Rocephin here in the emergency department. Lab studies from previous visits show renal function has deteriorated on this visit, likely due to poor oral intake and fever. - Vital Signs Vital signs: Temp Pulse Resp BP Pulse Ox 24 H 164/61 H 100 10/25/18 16:01 10/25/18 16:00 10/25/18 16:01 - Laboratory Result Diagrams: 10/25/18 14:04 10/25/18 14:04 Laboratory results interpreted by me: 10/25/18 10/25/18 10/25/18 12:00 14:04 14:04 RBC 3.53 L Hgb 10.8 L Hct 33.2 L RDW 18.5 H Seg Neutrophils % 82.9 H Lymphocytes % 9.8 L Chloride 111 H BUN 44 H Creatinine 2.70 H Est GFR ( Amer) 21 L Est GFR (Non-Af Amer) 17 L AST 84 H ALT 56 H Urine Protein 30 H Ur Leukocyte Esterase SMALL H Discharge - Discharge Clinical Impression: UTI (urinary tract infection), Dehydration, Dementia, Renal insufficiency Condition: Stable Disposition: ADMITTED INPATIENT Admitting Provider: Ethan Unit Admitted: Medical Floor
[2018-10-25] MEDS ORDERED: ACETAMINOPHEN 325 MG TABLET PO PRN (17:45)
[2018-10-25] MEDS ORDERED: ALBUTEROL SULFATE HFA (90 MCG/PUFF) 200 PUFF/8.5 GM MDI IH PRN (17:45)
[2018-10-25 18:21] LABS: UR PRO/CREAT RATIO RESULT 0.5 mg/mg (0.0-0.2); URINE CREATININE 98.9 mg/dL (15-278); URINE PROTEIN 50.1 mg/dL (<12)
[2018-10-25 18:27] LABS: LIPASE 158.6 U/L (23-300); PHOSPHORUS 4.3 mg/dL (2.5-4.5)
[2018-10-25 18:38] LABS: INTERNATIONAL RATION (INR) 1.16; PROTHROMBIN TIME 15.4 SEC (11.4-15.4)
[2018-10-25 18:39] LABS: PARTIAL THROMBOPLASTIN TIME 34.3 SEC (23.5-35.8)
[2018-10-25 18:44] LABS: FREE T4 (FREE THYROXINE) 0.88 ng/dL (0.78-2.19)
[2018-10-25 18:58] LABS: THYROID STIMULATING HORMONE 1.14 uIU/mL (0.47-4.68)
[2018-10-25 19:01] LABS: CREATINE KINASE MB 0.35 ng/mL (<4.55); TROPONIN I 0.022 ng/mL
[2018-10-25] MEDS: ENOXAPARIN SODIUM INJ 40 MG/0.4 ML DISP.SYRIN SUBCUT SCH (20:23)
[2018-10-25] MEDS: LAMOTRIGINE 25 MG TAB.CHEW PO SCH ×2 (20:23→23:01)
[2018-10-25] MEDS: BUDESONIDE/FORMOTEROL 160-4.5 MCG 60 PUFF/6 GM MDI IH SCH ×2 (20:24→23:02)
[2018-10-25] MEDS: METOPROLOL SUCCINATE 50 MG TAB.SR.24H PO SCH (20:44)
[2018-10-25] MEDS: CALCITRIOL 0.25 MCG CAPSULE PO SCH (20:44)
[2018-10-25] MEDS: AMLODIPINE BESYLATE 10 MG TABLET PO SCH (20:44)
[2018-10-25] MEDS: TIOTROPIUM BROMIDE DPI 5 CAP/KIT (18 MCG/CAP) IH SCH (20:47)
[2018-10-25] MEDS ORDERED: (PENDING PHARMACY ID) (Oxcarbazepine [Trileptal] 600 MG) PO SCH (22:00)
[2018-10-25] MEDS: ASPIRIN/DIPYRIDAMOLE 25-200 MG 1 CAP.SR CPMP.12HR PO SCH (23:01)
[2018-10-25] MEDS: LISINOPRIL 10 MG TABLET PO SCH (23:01)
[2018-10-25] MEDS: ATORVASTATIN CALCIUM 40 MG TABLET PO SCH (23:02)
[2018-10-25] MEDS: OXCARBAZEPINE 150 MG TABLET PO SCH (23:02)
[2018-10-25] MEDS: MIRTAZAPINE 15 MG TABLET PO SCH (23:02)
[2018-10-25] MEDS: NORMAL SALINE 1000 ML 1,000 ML IV PRN (23:52)
[2018-10-26 00:56] LABS: CREATINE KINASE MB 0.31 ng/mL (<4.55); TROPONIN I 0.026 ng/mL
[2018-10-26] MEDS: LANSOPRAZOLE 15 MG TAB.RAP.DR PO SCH (06:31)
[2018-10-26 06:48] LABS: HEMATOCRIT 27.9 % (36.0-47.0); HEMOGLOBIN 9.1 g/dL (12.0-15.5); MEAN CORPUSCULAR HEMOGLOBIN 30.8 pg (27.0-33.4); MEAN CORPUSCULAR HGB CONC 32.6 g/dL (32.0-36.0); MEAN CORPUSCULAR VOLUME 94 fl (80-97); PLATELET COUNT 178 10^3/uL (150-450); RED BLOOD COUNT 2.96 10^6/uL (3.72-5.28); RED CELL DISTRIBUTION WIDTH 18.6 % (11.5-14.0); WHITE BLOOD COUNT 5.3 10^3/uL (4.0-10.5)
[2018-10-26 07:09] LABS: ALANINE AMINOTRANSFERASE 56 U/L (9-52); ALBUMIN 2.9 g/dL (3.5-5.0); ALKALINE PHOSPHATASE 79 U/L (38-126); ANION GAP 7 (5-19); ASPARTATE AMINO TRANSFERASE 62 U/L (14-36); BILIRUBIN,DIRECT 0.2 mg/dL (0.0-0.4); BILIRUBIN,TOTAL 0.2 mg/dL (0.2-1.3); BLOOD UREA NITROGEN 43 mg/dL (7-20); CALCIUM 8.7 mg/dL (8.4-10.2); CARBON DIOXIDE 23 mmol/L (22-30); CHLORIDE 114 mmol/L (98-107); GLUCOSE 86 mg/dL (75-110); POTASSIUM 4.8 mmol/L (3.6-5.0); SODIUM 143.5 mmol/L (137-145); TOTAL PROTEIN 5.5 g/dL (6.3-8.2)
[2018-10-26 07:15] LABS: ABSOLUTE MONOCYTES # (MANUAL) 0.6 10^3/uL (0.1-1.4); ABSOLUTE NEUTROPHILS# (MANUAL) 3.7 10^3/uL (1.7-8.2); BASOPHILS % (MANUAL) 0 % (0-2); EOSINOPHILS % (MANUAL) 0 % (0-6); LYMPHOCYTES % (MANUAL) 18 % (13-45); MONOCYTES % (MANUAL) 11 % (3-13); SEGMENTED NEUTROPHILS % (MAN) 70 % (42-78); TOTAL CELLS COUNTED 100
[2018-10-26 07:16] LABS: ANISOCYTOSIS 2+; PLATELET COMMENT ADEQUATE
[2018-10-26 07:18] LABS: CREATINE KINASE MB 0.29 ng/mL (<4.55); TROPONIN I 0.018 ng/mL
[2018-10-26] MEDS: BUDESONIDE/FORMOTEROL 160-4.5 MCG 60 PUFF/6 GM MDI IH SCH ×2 (09:48→22:10)
[2018-10-26] MEDS: CALCITRIOL 0.25 MCG CAPSULE PO SCH (09:49)
[2018-10-26] MEDS: AMLODIPINE BESYLATE 10 MG TABLET PO SCH (09:49)
[2018-10-26] MEDS: TIOTROPIUM BROMIDE DPI 5 CAP/KIT (18 MCG/CAP) IH SCH (09:49)
[2018-10-26] MEDS: METOPROLOL SUCCINATE 50 MG TAB.SR.24H PO SCH (09:50)
[2018-10-26] MEDS: LISINOPRIL 10 MG TABLET PO SCH ×2 (09:50→22:11)
[2018-10-26] MEDS: ASPIRIN/DIPYRIDAMOLE 25-200 MG 1 CAP.SR CPMP.12HR PO SCH ×2 (09:50→22:11)
[2018-10-26] MEDS: LAMOTRIGINE 25 MG TAB.CHEW PO SCH ×2 (09:50→22:11)
[2018-10-26] MEDS: ENOXAPARIN SODIUM INJ 40 MG/0.4 ML DISP.SYRIN SUBCUT SCH (09:51)
[2018-10-26] MEDS: NORMAL SALINE 1000 ML 1,000 ML IV PRN ×2 (09:51→22:08)
[2018-10-26] MEDS: CEFTRIAXONE 1 GM/D5W RTU 1 GM/50 ML RTUPB IV SCH (18:10)
--- NOTE | 2018-10-26 18:43 | PDOC H&P ---
History of Present Illness Admission Date/PCP: 10/25/18 16:22 JOE CHIU MD History of Present Illness: ROSY PIKE is a 72 year old female, She has a history of dementia, end-stage chronic obstructive pulmonary disease, resident of the detention at [facility] She was transferred from the detention to the emergency room for evaluation of fever. History taking is extremely challenging in this patient because of the underlying dementia. In the emergency room she was found to have severe azotemia with grossly abnormal urinalysis. The urine dipstick was positive for albumin, leukocyte esterase,The urine bronchoscopy was positive for white blood cells negative for red blood cells there bacteriuria, this suggest UTI. She has very poor intake the azotemia is most likely prerenal Past Medical History Cardiac Medical History: Reports: Hyperlipidema, Hypertension Pulmonary Medical History: Reports: Bronchitis, Chronic Obstructive Pulmonary Disease (COPD), Pneumonia Endocrine Medical History: Reports: Hyperthyroidism Musculoskeltal Medical History: Reports: Arthritis Psychiatric Medical History: Reports: Dementia, Depression Hematology: Reports: Anemia Past Surgical History Past Surgical History: Reports: Appendectomy, Cholecystectomy - Gallbladder was not seen on a recent CT scan, no clips were noted, it may b Social History Lives with: [facility] Smoking Status: Current Some Day Smoker Frequency of Alcohol Use: None Hx Recreational Drug Use: No Drugs: None Hx Prescription Drug Abuse: No - Advance Directive Resuscitation Status: Do Not Resuscitate Family History Family History: Reviewed & Not Pertinent, COPD, Hypertension Parental Family History Reviewed: Yes Children Family History Reviewed: Yes Sibling(s) Family History Reviewed.: Yes Medication/Allergy Home Medications: Acetaminophen [Tylenol 325 mg Tablet] 650 mg PO Q6HP PRN 10/25/18 Albuterol Sulfate [Proair Hfa Inhalation Aerosol 8.5 gm Mdi] 1 puff IH Q4HP PRN 10/25/18 Amlodipine Besylate [Norvasc 10 mg Tablet] 10 mg PO DAILY 10/25/18 Aspirin/Dipyridamole [Aggrenox 25 mg/200 mg Capsule SA] 1 cap.sr PO Q12 10/25/18 Atorvastatin Calcium [Lipitor 40 mg Tablet] 40 mg PO QHS 10/25/18 Budesonide/Formoterol Fumarate [Symbicort Hfa 160-4.5 Mcg Inhaler 6 gm] 2 puff IH Q12 10/25/18 Calcitriol [Rocaltrol 0.25 Mcg Capsule] 1 cap PO DAILY 10/25/18 Fluticasone Propionate [Flonase Nasal [place] 50 Mcg/[place] 16 gm] 2 sprays NASL Q12 10/25/18 Lamotrigine [Lamictal 25 Mg Chewable Tab] 25 mg PO Q12 10/25/18 Lisinopril [Prinivil 40 mg Tablet] 40 mg PO Q12 10/25/18 Metoprolol Succinate [Toprol Xl 50 mg Tab.sr] 50 mg PO DAILY 10/25/18 Oxcarbazepine [Trileptal] 600 mg PO QHS 10/25/18 RX: Mirtazapine 7.5 mg PO QHS 10/25/18 RX: Omeprazole 20 mg PO Q6AM 10/25/18 Tiotropium [place] [Spiriva [place] 5 Cap/Kit (18 Mcg/Cap)] 1 cap IH DAILY 10/25/18 Tramadol HCl [Ultram 50 mg Tablet] 50 mg PO Q6HP PRN 10/25/18 Allergies/Adverse Reactions: erythromycin base [Erythromycin Base] Allergy (Severe, Verified 07/11/18 09:25) Paranoid latex [Latex] Allergy (Intermediate, Verified 07/11/18 09:25) Blisters Review of Systems ROS unobtainable: Other - Advanced dementia Physical Exam Vital Signs: Temp Pulse Resp BP Pulse Ox 98.1 F 66 17 152/59 H 96 10/26/18 16:32 10/26/18 16:32 10/26/18 16:32 10/26/18 16:32 10/26/18 16:32 Intake & Output 10/25/18 10/26/18 10/27/18 06:59 06:59 06:59 Intake Total 1621 1098 Balance 1621 1098 Weight 54.7 kg 54.7 kg General appearance: PRESENT: no acute distress, thin Eye exam: PRESENT: PERRLA Mouth exam: PRESENT: dry mucosa Respiratory exam: PRESENT: decreased breath sounds Cardiovascular exam: PRESENT: +S1, +S2 GI/Abdominal exam: PRESENT: soft Neurological exam: PRESENT: alert Psychiatric exam: PRESENT: flat affect Skin exam: PRESENT: dry, other - Loss of skin turgor Results Laboratory Results: 10/26/18 06:30 10/26/18 06:30 10/25/18 10/25/18 10/26/18 14:04 18:25 06:30 WBC 5.3 RBC 2.96 L Hgb 9.1 L Hct 27.9 L MCV 94 MCH 30.8 MCHC 32.6 RDW 18.6 H Plt Count 178 Seg Neutrophils % Not Reportable Lymphocytes % Not Reportable Monocytes % Not Reportable Eosinophils % Not Reportable Basophils % Not Reportable Absolute Neutrophils Not Reportable Absolute Lymphocytes Not Reportable Absolute Monocytes Not Reportable Absolute Eosinophils Not Reportable Absolute Basophils Not Reportable Sodium Potassium Chloride Carbon Dioxide Anion Gap BUN Creatinine Est GFR ( Amer) Est GFR (Non-Af Amer) Glucose Calcium Total Bilirubin AST ALT Alkaline Phosphatase Ammonia < 8.7 L Total Protein Albumin TSH 1.14 Free T4 0.88 10/26/18 06:30 WBC RBC Hgb Hct MCV MCH MCHC RDW Plt Count Seg Neutrophils % Lymphocytes % Monocytes % Eosinophils % Basophils % Absolute Neutrophils Absolute Lymphocytes Absolute Monocytes Absolute Eosinophils Absolute Basophils Sodium 143.5 Potassium 4.8 Chloride 114 H Carbon Dioxide 23 Anion Gap 7 BUN 43 H Creatinine 1.93 H Est GFR ( Amer) 31 L Est GFR (Non-Af Amer) 26 L Glucose 86 Calcium 8.7 Total Bilirubin 0.2 AST 62 H ALT 56 H Alkaline Phosphatase 79 Ammonia Total Protein 5.5 L Albumin 2.9 L TSH Free T4 10/25/18 10/26/18 10/26/18 18:25 00:25 06:30 CK-MB (CK-2) 0.35 0.31 0.29 Troponin I 0.022 0.026 0.018 Impressions: Chest X-Ray 10/25/18 12:36 IMPRESSION: COPD. NO ACUTE RADIOGRAPHIC FINDING IN THE CHEST. Assessment & Plan - Diagnosis (1) Acute kidney injury Is this a current diagnosis for this admission?: Yes Plan: This is most likely prerenal azotemia, there is evidence of dehydration clinically she will be treated with IV fluid, kidney ultrasound will be requested to determine kidney size and also rule out post renal obstruction (2) Dehydration Is this a current diagnosis for this admission?: Yes (3) Urinary tract infection Qualifiers: Urinary tract infection type: site unspecified Hematuria presence: without hematuria Qualified Code(s): N39.0 - Urinary tract infection, site not specified Is this a current diagnosis for this admission?: Yes Plan: Start treatment empirically with IV antibiotic (4) Dementia Qualifiers: Dementia type: Alzheimer's disease Alzheimer's disease onset: other onset Dementia behavioral disturbance: without behavioral disturbance Qualified Code(s): G30.8 - Other Alzheimer's disease; F02.80 - Dementia in other diseases classified elsewhere without behavioral disturbance Is this a current diagnosis for this admission?: Yes (5) Dementia Qualifiers: Dementia type: Alzheimer's disease Alzheimer's disease onset: unspecified onset Dementia behavioral disturbance: without behavioral disturbance Qualified Code(s): G30.9 - Alzheimer's disease, unspecified; F02.80 - Dementia in other diseases classified elsewhere without behavioral disturbance Is this a current diagnosis for this admission?: Yes
--- NOTE | 2018-10-26 18:48 | PDOC PROGRESS REPORT ---
Subjective Progress Note for:: 10/26/18 Subjective:: Patient was seen by the bedside, she was admitted yesterday for the management of acute kidney injury with a background of dementia, UTI Reason For Visit: ACUTE KIDNEY INJURY,UTI,DEMENTIA,COPD Physical Exam Vital Signs: Temp Pulse Resp BP Pulse Ox 98.1 F 66 17 152/59 H 96 10/26/18 16:32 10/26/18 16:32 10/26/18 16:32 10/26/18 16:32 10/26/18 16:32 Intake & Output 10/25/18 10/26/18 10/27/18 06:59 06:59 06:59 Intake Total 1621 1098 Balance 1621 1098 Weight 54.7 kg 54.7 kg General appearance: PRESENT: no acute distress Eye exam: PRESENT: PERRLA Respiratory exam: PRESENT: clear to auscultation lashawn Cardiovascular exam: PRESENT: +S1, +S2 GI/Abdominal exam: PRESENT: soft Neurological exam: PRESENT: alert Results Laboratory Results: 10/26/18 06:30 10/26/18 06:30 10/25/18 10/25/18 10/26/18 14:04 18:25 06:30 WBC 5.3 RBC 2.96 L Hgb 9.1 L Hct 27.9 L MCV 94 MCH 30.8 MCHC 32.6 RDW 18.6 H Plt Count 178 Seg Neutrophils % Not Reportable Lymphocytes % Not Reportable Monocytes % Not Reportable Eosinophils % Not Reportable Basophils % Not Reportable Absolute Neutrophils Not Reportable Absolute Lymphocytes Not Reportable Absolute Monocytes Not Reportable Absolute Eosinophils Not Reportable Absolute Basophils Not Reportable Sodium Potassium Chloride Carbon Dioxide Anion Gap BUN Creatinine Est GFR ( Amer) Est GFR (Non-Af Amer) Glucose Calcium Total Bilirubin AST ALT Alkaline Phosphatase Ammonia < 8.7 L Total Protein Albumin TSH 1.14 Free T4 0.88 10/26/18 06:30 WBC RBC Hgb Hct MCV MCH MCHC RDW Plt Count Seg Neutrophils % Lymphocytes % Monocytes % Eosinophils % Basophils % Absolute Neutrophils Absolute Lymphocytes Absolute Monocytes Absolute Eosinophils Absolute Basophils Sodium 143.5 Potassium 4.8 Chloride 114 H Carbon Dioxide 23 Anion Gap 7 BUN 43 H Creatinine 1.93 H Est GFR ( Amer) 31 L Est GFR (Non-Af Amer) 26 L Glucose 86 Calcium 8.7 Total Bilirubin 0.2 AST 62 H ALT 56 H Alkaline Phosphatase 79 Ammonia Total Protein 5.5 L Albumin 2.9 L TSH Free T4 10/25/18 10/26/18 10/26/18 18:25 00:25 06:30 CK-MB (CK-2) 0.35 0.31 0.29 Troponin I 0.022 0.026 0.018 Impressions: Chest X-Ray 10/25/18 12:36 IMPRESSION: COPD. NO ACUTE RADIOGRAPHIC FINDING IN THE CHEST. Assessment & Plan - Diagnosis (1) Acute kidney injury Is this a current diagnosis for this admission?: Yes Plan: Improved with hydration (2) Dehydration Is this a current diagnosis for this admission?: Yes Plan: Continue IV therapy (3) Urinary tract infection Qualifiers: Urinary tract infection type: site unspecified Hematuria presence: without hematuria Qualified Code(s): N39.0 - Urinary tract infection, site not specified Is this a current diagnosis for this admission?: Yes (4) Dementia Qualifiers: Dementia type: Alzheimer's disease Alzheimer's disease onset: other onset Dementia behavioral disturbance: without behavioral disturbance Qualified Code(s): G30.8 - Other Alzheimer's disease; F02.80 - Dementia in other diseases classified elsewhere without behavioral disturbance Is this a current diagnosis for this admission?: Yes (5) Dementia Qualifiers: Dementia type: Alzheimer's disease Alzheimer's disease onset: unspecified onset Dementia behavioral disturbance: without behavioral disturbance Qualified Code(s): G30.9 - Alzheimer's disease, unspecified; F02.80 - Dementia in other diseases classified elsewhere without behavioral disturbance Is this a current diagnosis for this admission?: Yes
--- NOTE | 2018-10-26 21:56 | RADIOLOGY REPORT (SQ) ---
EXAM DESCRIPTION: US RETROPERITONEUM LIMITED COMPLETED DATE/TME: 10/26/2018 00:00 CLINICAL HISTORY: 72 years, Female, acute kidney injury Findings: Right kidney measures 10.0 x 4.8 x 5.4 cm. Left kidney measures 8.2 x 3.6 x 3.3 cm. No hydronephrosis. No abdominal ascites. The bladder is mildly distended. Right kidney demonstrates echogenic foci with shadowing, suspicious for calculi. No perinephric fluid. IMPRESSION: Right renal calculi are suspected. No evidence for acute urinary obstruction.
[2018-10-26] MEDS: OXCARBAZEPINE 150 MG TABLET PO SCH (22:11)
[2018-10-26] MEDS: ATORVASTATIN CALCIUM 40 MG TABLET PO SCH (22:11)
[2018-10-26] MEDS: MIRTAZAPINE 15 MG TABLET PO SCH (22:11)
[2018-10-27] MEDS: TRAMADOL HCL 50 MG TABLET PO PRN (03:14)
[2018-10-27 04:36] LABS: HEMATOCRIT 27.4 % (36.0-47.0); HEMOGLOBIN 9.1 g/dL (12.0-15.5); MEAN CORPUSCULAR HEMOGLOBIN 30.8 pg (27.0-33.4); MEAN CORPUSCULAR HGB CONC 33.2 g/dL (32.0-36.0); MEAN CORPUSCULAR VOLUME 93 fl (80-97); PLATELET COUNT 161 10^3/uL (150-450); RED BLOOD COUNT 2.95 10^6/uL (3.72-5.28); RED CELL DISTRIBUTION WIDTH 18.5 % (11.5-14.0); WHITE BLOOD COUNT 5.4 10^3/uL (4.0-10.5)
[2018-10-27 04:59] LABS: ALANINE AMINOTRANSFERASE 40 U/L (9-52); ALKALINE PHOSPHATASE 71 U/L (38-126); ANION GAP 7 (5-19); ASPARTATE AMINO TRANSFERASE 57 U/L (14-36); BILIRUBIN,DIRECT 0.3 mg/dL (0.0-0.4); BILIRUBIN,TOTAL 0.3 mg/dL (0.2-1.3); BLOOD UREA NITROGEN 32 mg/dL (7-20); CALCIUM 8.4 mg/dL (8.4-10.2); CARBON DIOXIDE 22 mmol/L (22-30); CHLORIDE 112 mmol/L (98-107); GLUCOSE 88 mg/dL (75-110); POTASSIUM 4.4 mmol/L (3.6-5.0); SODIUM 141.4 mmol/L (137-145); TOTAL PROTEIN 5.8 g/dL (6.3-8.2)
[2018-10-27] MEDS ORDERED: VALSARTAN 160 MG TABLET PO ONE (05:00)
[2018-10-27 05:11] LABS: ABSOLUTE LYMPHOCYTES# (MANUAL) 1.5 10^3/uL (0.5-4.7); ABSOLUTE MONOCYTES # (MANUAL) 0.7 10^3/uL (0.1-1.4); ABSOLUTE NEUTROPHILS# (MANUAL) 3.1 10^3/uL (1.7-8.2); BASOPHILS % (MANUAL) 0 % (0-2); EOSINOPHILS % (MANUAL) 2 % (0-6); LYMPHOCYTES % (MANUAL) 27 % (13-45); MONOCYTES % (MANUAL) 13 % (3-13); SEGMENTED NEUTROPHILS % (MAN) 57 % (42-78); TOTAL CELLS COUNTED 100
[2018-10-27 05:12] LABS: ANISOCYTOSIS 2+; BURR CELLS 1+; OVALOCYTES 1+; PLATELET COMMENT ADEQUATE; POIKILOCYTOSIS 1+; SCHISTOCYTES SLIGHT; TOXIC GRANULATION SLIGHT
[2018-10-27] MEDS: LANSOPRAZOLE 15 MG TAB.RAP.DR PO SCH (05:42)
[2018-10-27] MEDS: ENOXAPARIN SODIUM INJ 30 MG/0.3 ML DISP.SYRIN SUBCUT SCH (08:11)
[2018-10-27] MEDS: NORMAL SALINE 1000 ML 1,000 ML IV PRN ×2 (08:11→17:08)
[2018-10-27] MEDS: TIOTROPIUM BROMIDE DPI 5 CAP/KIT (18 MCG/CAP) IH SCH (10:00)
[2018-10-27] MEDS: LAMOTRIGINE 25 MG TAB.CHEW PO SCH (10:02)
[2018-10-27] MEDS: ASPIRIN/DIPYRIDAMOLE 25-200 MG 1 CAP.SR CPMP.12HR PO SCH (10:02)
[2018-10-27] MEDS: CALCITRIOL 0.25 MCG CAPSULE PO SCH (10:02)
[2018-10-27] MEDS: AMLODIPINE BESYLATE 10 MG TABLET PO SCH (10:03)
[2018-10-27] MEDS: LISINOPRIL 10 MG TABLET PO SCH (10:03)
[2018-10-27] MEDS: METOPROLOL SUCCINATE 50 MG TAB.SR.24H PO SCH (10:04)
[2018-10-27] MEDS: BUDESONIDE/FORMOTEROL 160-4.5 MCG 60 PUFF/6 GM MDI IH SCH (10:04)
[2018-10-27] MEDS: CEFTRIAXONE 1 GM/D5W RTU 1 GM/50 ML RTUPB IV SCH (17:07)
[2018-10-27] MEDS ORDERED: VALSARTAN 160 MG TABLET PO SCH (18:00)
--- NOTE | 2018-10-27 19:54 | PDOC PROGRESS REPORT ---
Subjective Progress Note for:: 10/27/18 Subjective:: Patient seen by the bedside, the blood pressure was elevated this is partly due to the normal saline infusion, acute kidney injury improving with hydration Reason For Visit: ACUTE KIDNEY INJURY,UTI,DEMENTIA,COPD Physical Exam Vital Signs: Temp Pulse Resp BP Pulse Ox 98.3 F 71 16 160/57 H 95 10/27/18 16:04 10/27/18 16:04 10/27/18 16:04 10/27/18 16:04 10/27/18 16:04 Intake & Output 10/26/18 10/27/18 10/28/18 06:59 06:59 06:59 Intake Total 1621 2248 1945 Balance 1621 2248 1945 Weight 54.7 kg 54.7 kg General appearance: PRESENT: no acute distress Eye exam: PRESENT: PERRLA Respiratory exam: PRESENT: clear to auscultation lashawn Cardiovascular exam: PRESENT: +S1, +S2 GI/Abdominal exam: PRESENT: soft Results Laboratory Results: 10/27/18 04:01 10/27/18 04:01 10/27/18 10/27/18 04:01 04:01 WBC 5.4 RBC 2.95 L Hgb 9.1 L Hct 27.4 L MCV 93 MCH 30.8 MCHC 33.2 RDW 18.5 H Plt Count 161 Seg Neutrophils % Not Reportable Lymphocytes % Not Reportable Monocytes % Not Reportable Eosinophils % Not Reportable Basophils % Not Reportable Absolute Neutrophils Not Reportable Absolute Lymphocytes Not Reportable Absolute Monocytes Not Reportable Absolute Eosinophils Not Reportable Absolute Basophils Not Reportable Sodium 141.4 Potassium 4.4 Chloride 112 H Carbon Dioxide 22 Anion Gap 7 BUN 32 H Creatinine 1.43 H Est GFR ( Amer) 44 L Est GFR (Non-Af Amer) 36 L Glucose 88 Calcium 8.4 Total Bilirubin 0.3 AST 57 H ALT 40 Alkaline Phosphatase 71 Total Protein 5.8 L Albumin 3.0 L 10/25/18 10/26/18 10/26/18 18:25 00:25 06:30 CK-MB (CK-2) 0.35 0.31 0.29 Troponin I 0.022 0.026 0.018 Impressions: Chest X-Ray 10/25/18 12:36 IMPRESSION: COPD. NO ACUTE RADIOGRAPHIC FINDING IN THE CHEST. Renal Ultrasound 10/26/18 00:00 IMPRESSION: Right renal calculi are suspected. No evidence for acute urinary obstruction. Assessment & Plan - Diagnosis (1) Acute kidney injury Is this a current diagnosis for this admission?: Yes (2) Dehydration Is this a current diagnosis for this admission?: Yes Plan: Improving (3) Urinary tract infection Qualifiers: Urinary tract infection type: site unspecified Hematuria presence: without hematuria Qualified Code(s): N39.0 - Urinary tract infection, site not specified Is this a current diagnosis for this admission?: Yes Plan: Continue treatment (4) Dementia Qualifiers: Dementia type: Alzheimer's disease Alzheimer's disease onset: other onset Dementia behavioral disturbance: without behavioral disturbance Qualified Code(s): G30.8 - Other Alzheimer's disease; F02.80 - Dementia in other diseases classified elsewhere without behavioral disturbance Is this a current diagnosis for this admission?: Yes (5) Essential (primary) hypertension Is this a current diagnosis for this admission?: Yes Plan: Start Diovan (6) Undernutrition Is this a current diagnosis for this admission?: Yes
[2018-10-28] MEDS: LISINOPRIL 10 MG TABLET PO SCH ×3 (00:02→22:03)
[2018-10-28] MEDS: ASPIRIN/DIPYRIDAMOLE 25-200 MG 1 CAP.SR CPMP.12HR PO SCH ×3 (00:02→22:02)
[2018-10-28] MEDS: ATORVASTATIN CALCIUM 40 MG TABLET PO SCH ×2 (00:02→22:02)
[2018-10-28] MEDS: MIRTAZAPINE 15 MG TABLET PO SCH ×2 (00:02→22:02)
[2018-10-28] MEDS: LAMOTRIGINE 25 MG TAB.CHEW PO SCH ×3 (00:06→22:03)
[2018-10-28] MEDS: OXCARBAZEPINE 150 MG TABLET PO SCH ×2 (00:07→22:03)
[2018-10-28] MEDS: BUDESONIDE/FORMOTEROL 160-4.5 MCG 60 PUFF/6 GM MDI IH SCH ×4 (00:09→22:01)
[2018-10-28] MEDS: NORMAL SALINE 1000 ML 1,000 ML IV PRN ×2 (04:08→14:46)
[2018-10-28 05:02] LABS: ABSOLUTE EOSINOPHILS # (AUTO) 0.1 10^3/uL (0.0-0.6); ABSOLUTE LYMPHOCYTES (AUTO) 1.2 10^3/uL (0.5-4.7); ABSOLUTE MONOCYTES (AUTO) 0.6 10^3/uL (0.1-1.4); BASOPHILS % (AUTO) 0.5 % (0-2); EOSINOPHILS % (AUTO) 2.9 % (0-6); HEMATOCRIT 24.5 % (36.0-47.0); HEMOGLOBIN 8.1 g/dL (12.0-15.5); MEAN CORPUSCULAR HEMOGLOBIN 30.9 pg (27.0-33.4); MEAN CORPUSCULAR HGB CONC 33.3 g/dL (32.0-36.0); MEAN CORPUSCULAR VOLUME 93 fl (80-97); MONOCYTES % (AUTO) 11.9 % (3-13); PLATELET COUNT 168 10^3/uL (150-450); RED BLOOD COUNT 2.63 10^6/uL (3.72-5.28); RED CELL DISTRIBUTION WIDTH 17.2 % (11.5-14.0); SEGMENTED NEUTROPHILS % (AUTO) 59.7 % (42-78); TOTAL CELLS COUNTED % (AUTO) 100 %
[2018-10-28 05:13] LABS: ALANINE AMINOTRANSFERASE 38 U/L (9-52); ALBUMIN 2.5 g/dL (3.5-5.0); ALKALINE PHOSPHATASE 67 U/L (38-126); ANION GAP 5 (5-19); ASPARTATE AMINO TRANSFERASE 32 U/L (14-36); BILIRUBIN,DIRECT 0.1 mg/dL (0.0-0.4); BILIRUBIN,TOTAL 0.1 mg/dL (0.2-1.3); BLOOD UREA NITROGEN 28 mg/dL (7-20); CALCIUM 8.4 mg/dL (8.4-10.2); CARBON DIOXIDE 24 mmol/L (22-30); CHLORIDE 115 mmol/L (98-107); GLUCOSE 99 mg/dL (75-110); POTASSIUM 4.6 mmol/L (3.6-5.0); SODIUM 143.8 mmol/L (137-145)
[2018-10-28] MEDS: LANSOPRAZOLE 15 MG TAB.RAP.DR PO SCH (05:27)
[2018-10-28] MEDS: ENOXAPARIN SODIUM INJ 30 MG/0.3 ML DISP.SYRIN SUBCUT SCH (07:46)
[2018-10-28] MEDS: TIOTROPIUM BROMIDE DPI 5 CAP/KIT (18 MCG/CAP) IH SCH (09:11)
[2018-10-28] MEDS: METOPROLOL SUCCINATE 50 MG TAB.SR.24H PO SCH (09:14)
[2018-10-28] MEDS: AMLODIPINE BESYLATE 10 MG TABLET PO SCH (09:14)
[2018-10-28] MEDS: CALCITRIOL 0.25 MCG CAPSULE PO SCH (09:14)
[2018-10-28] MEDS: CEFTRIAXONE 1 GM/D5W RTU 1 GM/50 ML RTUPB IV SCH (19:41)
--- NOTE | 2018-10-28 22:11 | PDOC PROGRESS REPORT ---
Subjective Progress Note for:: 10/28/18 Subjective:: Patient seen by the bedside she continues to improve with hydration kidney function is back to baseline, suggesting a prerenal component, the kidney function improved with hydration. Reason For Visit: ACUTE KIDNEY INJURY,UTI,DEMENTIA,COPD Physical Exam Vital Signs: Temp Pulse Resp BP Pulse Ox 99.1 F 80 14 159/69 H 93 10/28/18 20:00 10/28/18 20:00 10/28/18 20:00 10/28/18 20:00 10/28/18 20:00 Intake & Output 10/27/18 10/28/18 10/29/18 06:59 06:59 06:59 Intake Total 8230 3161 2009 Balance 2240 316 2009 Weight 54.7 kg 57.2 kg General appearance: PRESENT: no acute distress Eye exam: PRESENT: PERRLA Respiratory exam: PRESENT: clear to auscultation lashawn Cardiovascular exam: PRESENT: +S1, +S2 GI/Abdominal exam: PRESENT: soft Neurological exam: PRESENT: alert Results Laboratory Results: 10/28/18 04:32 10/28/18 04:32 10/28/18 10/28/18 04:32 04:32 WBC 5.0 RBC 2.63 L Hgb 8.1 L Hct 24.5 L MCV 93 MCH 30.9 MCHC 33.3 RDW 17.2 H Plt Count 168 Seg Neutrophils % 59.7 Lymphocytes % 25.0 Monocytes % 11.9 Eosinophils % 2.9 Basophils % 0.5 Absolute Neutrophils 3.0 Absolute Lymphocytes 1.2 Absolute Monocytes 0.6 Absolute Eosinophils 0.1 Absolute Basophils 0.0 Sodium 143.8 Potassium 4.6 Chloride 115 H Carbon Dioxide 24 Anion Gap 5 BUN 28 H Creatinine 1.23 Est GFR ( Amer) 52 L Est GFR (Non-Af Amer) 43 L Glucose 99 Calcium 8.4 Total Bilirubin 0.1 L AST 32 ALT 38 Alkaline Phosphatase 67 Total Protein 5.0 L Albumin 2.5 L 10/25/18 10/26/18 10/26/18 18:25 00:25 06:30 CK-MB (CK-2) 0.35 0.31 0.29 Troponin I 0.022 0.026 0.018 Impressions: Chest X-Ray 10/25/18 12:36 IMPRESSION: COPD. NO ACUTE RADIOGRAPHIC FINDING IN THE CHEST. Renal Ultrasound 10/26/18 00:00 IMPRESSION: Right renal calculi are suspected. No evidence for acute urinary obstruction. Assessment & Plan - Diagnosis (1) Acute kidney injury Is this a current diagnosis for this admission?: Yes Plan: Improved with hydration (2) Dehydration Is this a current diagnosis for this admission?: Yes (3) Urinary tract infection Qualifiers: Urinary tract infection type: site unspecified Hematuria presence: without hematuria Qualified Code(s): N39.0 - Urinary tract infection, site not specified Is this a current diagnosis for this admission?: Yes (4) Dementia Qualifiers: Dementia type: Alzheimer's disease Alzheimer's disease onset: other onset Dementia behavioral disturbance: without behavioral disturbance Qualified Code(s): G30.8 - Other Alzheimer's disease; F02.80 - Dementia in other diseases classified elsewhere without behavioral disturbance Is this a current diagnosis for this admission?: Yes (5) Essential (primary) hypertension Is this a current diagnosis for this admission?: Yes (6) Undernutrition Is this a current diagnosis for this admission?: Yes - Plan Summary Plan Summary: Continue treatment
[2018-10-29] MEDS: NORMAL SALINE 1000 ML 1,000 ML IV PRN ×2 (02:52→12:55)
[2018-10-29] MEDS: LANSOPRAZOLE 15 MG TAB.RAP.DR PO SCH (05:15)
[2018-10-29] MEDS: ENOXAPARIN SODIUM INJ 30 MG/0.3 ML DISP.SYRIN SUBCUT SCH (08:36)
[2018-10-29] MEDS: LISINOPRIL 10 MG TABLET PO SCH ×2 (10:29→21:44)
[2018-10-29] MEDS: CALCITRIOL 0.25 MCG CAPSULE PO SCH (10:30)
[2018-10-29] MEDS: AMLODIPINE BESYLATE 10 MG TABLET PO SCH (10:30)
[2018-10-29] MEDS: METOPROLOL SUCCINATE 50 MG TAB.SR.24H PO SCH (10:31)
[2018-10-29] MEDS: ASPIRIN/DIPYRIDAMOLE 25-200 MG 1 CAP.SR CPMP.12HR PO SCH ×2 (10:31→21:44)
[2018-10-29] MEDS: LAMOTRIGINE 25 MG TAB.CHEW PO SCH ×2 (10:31→21:45)
[2018-10-29] MEDS: BUDESONIDE/FORMOTEROL 160-4.5 MCG 60 PUFF/6 GM MDI IH SCH ×2 (10:40→21:45)
[2018-10-29] MEDS: TIOTROPIUM BROMIDE DPI 5 CAP/KIT (18 MCG/CAP) IH SCH (10:40)
--- NOTE | 2018-10-29 10:55 | PDOC PROGRESS REPORT ---
Subjective Progress Note for:: 10/29/18 Subjective:: Patient is currently doing well Patient was admitted with acute renal failure currently all resolved Denied any chest pain to than any shortness of the breath Reason For Visit: ACUTE KIDNEY INJURY,UTI,DEMENTIA,COPD Physical Exam Vital Signs: Temp Pulse Resp BP Pulse Ox 97.2 F 67 18 181/70 H 92 10/29/18 08:00 10/29/18 08:00 10/29/18 08:00 10/29/18 08:00 10/29/18 08:00 Intake & Output 10/28/18 10/29/18 10/30/18 06:59 06:59 06:59 Intake Total 3165 3010 Balance 3165 3010 Weight 57.2 kg 54.9 kg General appearance: PRESENT: no acute distress, well-developed, well-nourished Head exam: PRESENT: atraumatic, normocephalic Eye exam: PRESENT: conjunctiva pink, EOMI, PERRLA. ABSENT: scleral icterus Ear exam: PRESENT: normal external ear exam Mouth exam: PRESENT: moist, tongue midline Neck exam: PRESENT: full ROM. ABSENT: carotid bruit, JVD, lymphadenopathy, thyromegaly Respiratory exam: PRESENT: clear to auscultation lashawn Cardiovascular exam: PRESENT: RRR. ABSENT: diastolic murmur, rubs, systolic murmur Pulses: PRESENT: normal dorsalis pedis pul, +2 pedal pulses bilateral Vascular exam: PRESENT: normal capillary refill GI/Abdominal exam: PRESENT: normal bowel sounds, soft. ABSENT: distended, guarding, mass, organolmegaly, rebound, tenderness Rectal exam: PRESENT: deferred Neurological exam: PRESENT: alert, awake, oriented to person, oriented to place, oriented to time, oriented to situation, CN II-XII grossly intact. ABSENT: motor sensory deficit Psychiatric exam: PRESENT: appropriate affect, normal mood. ABSENT: homicidal ideation, suicidal ideation Skin exam: PRESENT: dry, intact, warm. ABSENT: cyanosis, rash Results Laboratory Results: 10/28/18 04:32 10/28/18 04:32 10/25/18 12:00 Catheterized Urine Urine Culture - Final Klebsiella Pneumoniae 10/25/18 10/26/18 10/26/18 18:25 00:25 06:30 CK-MB (CK-2) 0.35 0.31 0.29 Troponin I 0.022 0.026 0.018 Impressions: Chest X-Ray 10/25/18 12:36 IMPRESSION: COPD. NO ACUTE RADIOGRAPHIC FINDING IN THE CHEST. Renal Ultrasound 10/26/18 00:00 IMPRESSION: Right renal calculi are suspected. No evidence for acute urinary obstruction. Assessment & Plan - Diagnosis (1) Acute kidney injury Is this a current diagnosis for this admission?: Yes (2) Dehydration Is this a current diagnosis for this admission?: Yes (3) Dementia Qualifiers: Dementia type: Alzheimer's disease Alzheimer's disease onset: unspecified onset Dementia behavioral disturbance: without behavioral disturbance Qualified Code(s): G30.9 - Alzheimer's disease, unspecified; F02.80 - Dementia in other diseases classified elsewhere without behavioral disturbance Is this a current diagnosis for this admission?: Yes (4) Essential (primary) hypertension Is this a current diagnosis for this admission?: Yes (5) Anemia Qualifiers: Anemia type: iron deficiency Iron deficiency anemia type: chronic blood loss Qualified Code(s): D50.0 - Iron deficiency anemia secondary to blood loss (chronic) Is this a current diagnosis for this admission?: Yes - Time Time Spent with patient: 15-24 minutes Medications reviewed and adjusted accordingly: Yes Anticipated discharge: Other Within: Other - Plan Summary Plan Summary: Continues to current medication
[2018-10-29] MEDS: HYDRALAZINE HCL 10 MG TABLET PO PRN (13:06)
[2018-10-29] MEDS: CEFTRIAXONE 1 GM/D5W RTU 1 GM/50 ML RTUPB IV SCH (17:15)
[2018-10-29] MEDS: ATORVASTATIN CALCIUM 40 MG TABLET PO SCH (21:44)
[2018-10-29] MEDS: MIRTAZAPINE 15 MG TABLET PO SCH (21:44)
[2018-10-29] MEDS: OXCARBAZEPINE 150 MG TABLET PO SCH (21:45)
[2018-10-30] MEDS: HYDRALAZINE HCL 10 MG TABLET PO PRN (00:22)
[2018-10-30] MEDS: NORMAL SALINE 1000 ML 1,000 ML IV PRN ×2 (00:22→16:53)
[2018-10-30 05:17] LABS: ABSOLUTE BASOPHILS # (AUTO) 0.1 10^3/uL (0.0-0.2); ABSOLUTE EOSINOPHILS # (AUTO) 0.3 10^3/uL (0.0-0.6); ABSOLUTE LYMPHOCYTES (AUTO) 1.7 10^3/uL (0.5-4.7); ABSOLUTE MONOCYTES (AUTO) 0.9 10^3/uL (0.1-1.4); ABSOLUTE NEUT (AUTO) 5.2 10^3/uL (1.7-8.2); EOSINOPHILS % (AUTO) 3.3 % (0-6); HEMATOCRIT 27.3 % (36.0-47.0); HEMOGLOBIN 9.1 g/dL (12.0-15.5); LYMPHOCYTES % (AUTO) 20.5 % (13-45); MEAN CORPUSCULAR HEMOGLOBIN 30.8 pg (27.0-33.4); MEAN CORPUSCULAR HGB CONC 33.4 g/dL (32.0-36.0); MEAN CORPUSCULAR VOLUME 92 fl (80-97); PLATELET COUNT 253 10^3/uL (150-450); RED BLOOD COUNT 2.96 10^6/uL (3.72-5.28); RED CELL DISTRIBUTION WIDTH 18.2 % (11.5-14.0); SEGMENTED NEUTROPHILS % (AUTO) 64.2 % (42-78); TOTAL CELLS COUNTED % (AUTO) 100 %; WHITE BLOOD COUNT 8.1 10^3/uL (4.0-10.5)
[2018-10-30] MEDS: LANSOPRAZOLE 15 MG TAB.RAP.DR PO SCH (05:27)
[2018-10-30 05:30] LABS: ANION GAP 6 (5-19); BLOOD UREA NITROGEN 30 mg/dL (7-20); CALCIUM 8.6 mg/dL (8.4-10.2); CARBON DIOXIDE 26 mmol/L (22-30); CHLORIDE 109 mmol/L (98-107); GLUCOSE 93 mg/dL (75-110); POTASSIUM 4.9 mmol/L (3.6-5.0); SODIUM 141.1 mmol/L (137-145)
[2018-10-30] MEDS: LAMOTRIGINE 25 MG TAB.CHEW PO SCH ×2 (10:25→21:58)
[2018-10-30] MEDS: ASPIRIN/DIPYRIDAMOLE 25-200 MG 1 CAP.SR CPMP.12HR PO SCH ×2 (10:25→21:58)
[2018-10-30] MEDS: ENOXAPARIN SODIUM INJ 30 MG/0.3 ML DISP.SYRIN SUBCUT SCH (10:25)
[2018-10-30] MEDS: BUDESONIDE/FORMOTEROL 160-4.5 MCG 60 PUFF/6 GM MDI IH SCH ×2 (10:26→21:57)
[2018-10-30] MEDS: LISINOPRIL 10 MG TABLET PO SCH ×2 (10:26→21:57)
[2018-10-30] MEDS: METOPROLOL SUCCINATE 50 MG TAB.SR.24H PO SCH (10:26)
[2018-10-30] MEDS: CALCITRIOL 0.25 MCG CAPSULE PO SCH (10:26)
[2018-10-30] MEDS: AMLODIPINE BESYLATE 10 MG TABLET PO SCH (10:26)
[2018-10-30] MEDS: TIOTROPIUM BROMIDE DPI 5 CAP/KIT (18 MCG/CAP) IH SCH (10:26)
--- NOTE | 2018-10-30 13:34 | PDOC PROGRESS REPORT ---
Subjective Progress Note for:: 10/30/18 Subjective:: Patient is currently doing well Patient was admitted with acute renal failure currently all resolved Denied any chest pain to than any shortness of the breath Reason For Visit: ACUTE KIDNEY INJURY,UTI,DEMENTIA,COPD Physical Exam Vital Signs: Temp Pulse Resp BP Pulse Ox 98.0 F 83 18 175/78 H 92 10/30/18 12:00 10/30/18 12:00 10/30/18 12:00 10/30/18 12:00 10/30/18 12:00 Intake & Output 10/29/18 10/30/18 10/31/18 06:59 06:59 06:59 Intake Total 3010 3640 Balance 3010 3640 Weight 54.9 kg 57.5 kg General appearance: PRESENT: no acute distress, well-developed, well-nourished Head exam: PRESENT: atraumatic, normocephalic Eye exam: PRESENT: conjunctiva pink, EOMI, PERRLA. ABSENT: scleral icterus Ear exam: PRESENT: normal external ear exam Mouth exam: PRESENT: moist, tongue midline Neck exam: PRESENT: full ROM. ABSENT: carotid bruit, JVD, lymphadenopathy, thyromegaly Respiratory exam: PRESENT: clear to auscultation lashawn Cardiovascular exam: PRESENT: RRR. ABSENT: diastolic murmur, rubs, systolic murmur Vascular exam: PRESENT: normal capillary refill GI/Abdominal exam: PRESENT: normal bowel sounds, soft. ABSENT: distended, guarding, mass, organolmegaly, rebound, tenderness Rectal exam: PRESENT: deferred Neurological exam: PRESENT: alert, awake, oriented to person, oriented to place, oriented to time, oriented to situation, CN II-XII grossly intact. ABSENT: motor sensory deficit Psychiatric exam: PRESENT: appropriate affect, normal mood. ABSENT: homicidal ideation, suicidal ideation Skin exam: PRESENT: dry, intact, warm. ABSENT: cyanosis, rash Results Laboratory Results: 10/30/18 04:55 10/30/18 04:55 10/30/18 10/30/18 04:55 04:55 WBC 8.1 RBC 2.96 L Hgb 9.1 L Hct 27.3 L MCV 92 MCH 30.8 MCHC 33.4 RDW 18.2 H Plt Count 253 Seg Neutrophils % 64.2 Lymphocytes % 20.5 Monocytes % 11.0 Eosinophils % 3.3 Basophils % 1.0 Absolute Neutrophils 5.2 Absolute Lymphocytes 1.7 Absolute Monocytes 0.9 Absolute Eosinophils 0.3 Absolute Basophils 0.1 Sodium 141.1 Potassium 4.9 Chloride 109 H Carbon Dioxide 26 Anion Gap 6 BUN 30 H Creatinine 1.03 Est GFR ( Amer) > 60 Est GFR (Non-Af Amer) 53 L Glucose 93 Calcium 8.6 10/25/18 10/26/18 10/26/18 18:25 00:25 06:30 CK-MB (CK-2) 0.35 0.31 0.29 Troponin I 0.022 0.026 0.018 Impressions: Chest X-Ray 10/25/18 12:36 IMPRESSION: COPD. NO ACUTE RADIOGRAPHIC FINDING IN THE CHEST. Renal Ultrasound 10/26/18 00:00 IMPRESSION: Right renal calculi are suspected. No evidence for acute urinary obstruction. Assessment & Plan - Diagnosis (1) Acute kidney injury Is this a current diagnosis for this admission?: Yes (2) Dehydration Is this a current diagnosis for this admission?: Yes (3) Dementia Qualifiers: Dementia type: Alzheimer's disease Alzheimer's disease onset: unspecified onset Dementia behavioral disturbance: without behavioral disturbance Qualified Code(s): G30.9 - Alzheimer's disease, unspecified; F02.80 - Dementia in other diseases classified elsewhere without behavioral disturbance Is this a current diagnosis for this admission?: Yes (4) Essential (primary) hypertension Is this a current diagnosis for this admission?: Yes (5) Anemia Qualifiers: Anemia type: iron deficiency Iron deficiency anemia type: chronic blood loss Qualified Code(s): D50.0 - Iron deficiency anemia secondary to blood loss (chronic) Is this a current diagnosis for this admission?: Yes - Time Time Spent with patient: 15-24 minutes Medications reviewed and adjusted accordingly: Yes Anticipated discharge: Other Within: Other - Plan Summary Plan Summary: Discussed with the family and the bedside Continues to current medications
[2018-10-30] MEDS: CEFTRIAXONE 1 GM/D5W RTU 1 GM/50 ML RTUPB IV SCH (17:38)
[2018-10-30] MEDS: ATORVASTATIN CALCIUM 40 MG TABLET PO SCH (21:56)
[2018-10-30] MEDS: MIRTAZAPINE 15 MG TABLET PO SCH (21:57)
[2018-10-30] MEDS: OXCARBAZEPINE 150 MG TABLET PO SCH (21:57)
[2018-10-31] MEDS: HYDRALAZINE HCL 10 MG TABLET PO PRN ×2 (01:09→08:13)
[2018-10-31] MEDS: NORMAL SALINE 1000 ML 1,000 ML IV PRN (05:06)
[2018-10-31] MEDS: LANSOPRAZOLE 15 MG TAB.RAP.DR PO SCH (05:07)
[2018-10-31 07:32] LABS: ANION GAP 8 (5-19); BLOOD UREA NITROGEN 28 mg/dL (7-20); CALCIUM 8.5 mg/dL (8.4-10.2); CARBON DIOXIDE 28 mmol/L (22-30); CHLORIDE 105 mmol/L (98-107); GLUCOSE 87 mg/dL (75-110); POTASSIUM 4.4 mmol/L (3.6-5.0); SODIUM 140.7 mmol/L (137-145)
[2018-10-31] MEDS: ENOXAPARIN SODIUM INJ 30 MG/0.3 ML DISP.SYRIN SUBCUT SCH (08:13)
[2018-10-31] MEDS: LAMOTRIGINE 25 MG TAB.CHEW PO SCH ×2 (09:32→22:32)
[2018-10-31] MEDS: TIOTROPIUM BROMIDE DPI 5 CAP/KIT (18 MCG/CAP) IH SCH (09:33)
[2018-10-31] MEDS: CALCITRIOL 0.25 MCG CAPSULE PO SCH (09:33)
[2018-10-31] MEDS: ASPIRIN/DIPYRIDAMOLE 25-200 MG 1 CAP.SR CPMP.12HR PO SCH ×2 (09:33→22:34)
[2018-10-31] MEDS: AMLODIPINE BESYLATE 10 MG TABLET PO SCH (09:34)
[2018-10-31] MEDS: METOPROLOL SUCCINATE 50 MG TAB.SR.24H PO SCH (09:34)
[2018-10-31] MEDS: LISINOPRIL 10 MG TABLET PO SCH ×2 (09:34→22:29)
[2018-10-31] MEDS: BUDESONIDE/FORMOTEROL 160-4.5 MCG 60 PUFF/6 GM MDI IH SCH ×2 (09:35→22:31)
[2018-10-31] MEDS: TRAMADOL HCL 50 MG TABLET PO PRN (09:40)
[2018-10-31] MEDS: CEFTRIAXONE 1 GM/D5W RTU 1 GM/50 ML RTUPB IV SCH (17:39)
--- NOTE | 2018-10-31 20:34 | PDOC TRANSFER SUMMARY ---
General - Admit/Disc Date/PCP Admission Date/Primary Care Provider: 10/25/18 16:22 JOE CHIU MD Discharge Date: 10/31/18 - Discharge Diagnosis (1) Acute kidney injury Is this a current diagnosis for this admission?: Yes (2) Dehydration Is this a current diagnosis for this admission?: Yes (3) Urinary tract infection Is this a current diagnosis for this admission?: Yes (4) Dementia Is this a current diagnosis for this admission?: Yes (5) Essential (primary) hypertension Is this a current diagnosis for this admission?: Yes (6) Undernutrition Is this a current diagnosis for this admission?: Yes - Additional Information Resuscitation Status: Do Not Resuscitate Home Medications: Acetaminophen [Tylenol 325 mg Tablet] 650 mg PO Q6HP PRN 10/25/18 Albuterol Sulfate [Proair HFA Inhalation Aerosol 8.5 gm MDI] 1 puff IH Q4HP PRN 10/25/18 Amlodipine Besylate [Norvasc 10 mg Tablet] 10 mg PO DAILY 10/25/18 Aspirin/Dipyridamole [Aggrenox 25 mg/200 mg Capsule SA] 1 cap.sr PO Q12 10/25/18 Atorvastatin Calcium [Lipitor 40 mg Tablet] 40 mg PO QHS 10/25/18 Budesonide/Formoterol Fumarate [Symbicort HFA 160-4.5 mcg Inhaler 6 gm] 2 puff IH Q12 10/25/18 Calcitriol [Rocaltrol 0.25 mcg Capsule] 1 cap PO DAILY 10/25/18 Fluticasone Propionate [Flonase Nasal Reseda 50 Mcg/Reseda 16 gm] 2 sprays NASL Q12 10/25/18 Lamotrigine [Lamictal 25 mg Chewable Tab] 25 mg PO Q12 10/25/18 Lisinopril [Prinivil 40 mg Tablet] 40 mg PO Q12 10/25/18 Metoprolol Succinate [Toprol Xl 50 mg Tab.sr] 50 mg PO DAILY 10/25/18 Mirtazapine 7.5 mg PO QHS 10/25/18 Omeprazole 20 mg PO Q6AM 10/25/18 Oxcarbazepine [Trileptal] 600 mg PO QHS 10/25/18 Tiotropium [place] [Spiriva Handihaler 5 Cap/Kit (18 Mcg/Cap)] 1 cap IH DAILY 10/25/18 Tramadol HCl [Ultram 50 mg Tablet] 50 mg PO Q6HP PRN 10/25/18 Acetaminophen [Tylenol 325 mg Tablet] 650 mg PO Q6HP PRN tablet 10/31/18 History of Present Illness Admission Date/PCP: 10/25/18 16:22 JOE CHIU MD History of Present Illness: ROSY PIKE is a 72 year old female, She has a history of dementia, end-stage chronic obstructive pulmonary disease, resident of the [facility] at [place] She was transferred from the [facility] to the emergency room for evaluation of fever. History taking is extremely challenging in this patient because of the underlying dementia. In the emergency room she was found to have severe azotemia with grossly abnormal urinalysis. The urine dipstick was positive for albumin, leukocyte esterase,The urine microscopy was positive for white blood cells negative for red blood cells there bacteriuria, this suggest UTI. She has very poor intake the azotemia is most likely prerenal Hospital Course Hospital Course: Patient with advanced dementia, she was transferred from the [facility] to the emergency room because of concern for sepsis she had a fever in the [facility]ci, in the emergency room she was evaluated she was found to have acute kidney injury she has underlying chronic kidney disease, the urine dipstick was grossly abnormal,that suggest UTI the leukocyte esterase was positive, nitrite was positive, the urine microscopy was positive for white blood cells and also bacteria. She was empirically treated with IV antibiotic, the urine culture grew Klebsiella but the colony count was not significantly elevated.Kidney ultrasound was done as part of the evaluation for the acute kidney injury, the kidney ultrasound did not show any hydronephrosis that would suggest post renal azotemia. The kidney function normalized with normal saline treatment suggesting that the azotemia is most likely prerenal rather than a true intrinsic renal disease Physical Exam Vital Signs: Temp Pulse Resp BP Pulse Ox 98.0 F 75 17 141/56 H 92 10/31/18 15:20 10/31/18 15:20 10/31/18 15:20 10/31/18 15:20 10/31/18 15:20 Intake & Output 10/30/18 10/31/18 11/01/18 06:59 06:59 06:59 Intake Total 3640 3490 1480 Balance 3640 3490 1480 Weight 57.5 kg 56.8 kg General appearance: PRESENT: no acute distress Head exam: PRESENT: atraumatic, normocephalic Eye exam: PRESENT: conjunctiva pink, EOMI, PERRLA Respiratory exam: PRESENT: clear to auscultation lashawn Cardiovascular exam: PRESENT: RRR, +S1, +S2 Pulses: PRESENT: normal dorsalis pedis pul Vascular exam: PRESENT: normal capillary refill GI/Abdominal exam: PRESENT: normal bowel sounds, soft Rectal exam: PRESENT: deferred Extremities exam: PRESENT: full ROM Neurological exam: PRESENT: alert, CN II-XII grossly intact Psychiatric exam: PRESENT: appropriate affect, normal mood Skin exam: PRESENT: dry, intact, warm Results Laboratory Results: 10/30/18 04:55 10/31/18 06:18 10/31/18 06:18 Sodium 140.7 Potassium 4.4 Chloride 105 Carbon Dioxide 28 Anion Gap 8 BUN 28 H Creatinine 1.17 Est GFR ( Amer) 55 L Est GFR (Non-Af Amer) 46 L Glucose 87 Calcium 8.5 10/25/18 10/26/18 10/26/18 18:25 00:25 06:30 CK-MB (CK-2) 0.35 0.31 0.29 Troponin I 0.022 0.026 0.018 Impressions: Chest X-Ray 10/25/18 12:36 IMPRESSION: COPD. NO ACUTE RADIOGRAPHIC FINDING IN THE CHEST. Renal Ultrasound 10/26/18 00:00 IMPRESSION: Right renal calculi are suspected. No evidence for acute urinary obstruction. Qualifiers - * PATIENT BEING DISCHARGED WITH ANY OF THE FOLLOWING DIAGNOSIS: No
[2018-10-31] MEDS: OXCARBAZEPINE 150 MG TABLET PO SCH (22:29)
[2018-10-31] MEDS: MIRTAZAPINE 15 MG TABLET PO SCH (22:31)
[2018-10-31] MEDS: ATORVASTATIN CALCIUM 40 MG TABLET PO SCH (22:32)
[2018-11-01] MEDS: LANSOPRAZOLE 15 MG TAB.RAP.DR PO SCH (05:34)
[2018-11-01 07:43] LABS: ANION GAP 10 (5-19); BLOOD UREA NITROGEN 29 mg/dL (7-20); CALCIUM 8.6 mg/dL (8.4-10.2); CARBON DIOXIDE 28 mmol/L (22-30); CHLORIDE 104 mmol/L (98-107); GLUCOSE 85 mg/dL (75-110); POTASSIUM 4.9 mmol/L (3.6-5.0); SODIUM 141.5 mmol/L (137-145)
[2018-11-01] MEDS: HYDRALAZINE HCL 10 MG TABLET PO PRN (08:07)
[2018-11-01] MEDS: ENOXAPARIN SODIUM INJ 30 MG/0.3 ML DISP.SYRIN SUBCUT SCH (08:07)
[2018-11-01] MEDS: METOPROLOL SUCCINATE 50 MG TAB.SR.24H PO SCH (09:18)
[2018-11-01] MEDS: AMLODIPINE BESYLATE 10 MG TABLET PO SCH (09:18)
[2018-11-01] MEDS: LAMOTRIGINE 25 MG TAB.CHEW PO SCH (09:18)
[2018-11-01] MEDS: LISINOPRIL 10 MG TABLET PO SCH (09:18)
[2018-11-01] MEDS: CALCITRIOL 0.25 MCG CAPSULE PO SCH (09:18)
[2018-11-01] MEDS: ASPIRIN/DIPYRIDAMOLE 25-200 MG 1 CAP.SR CPMP.12HR PO SCH (09:18)
[2018-11-01] MEDS: TIOTROPIUM BROMIDE DPI 5 CAP/KIT (18 MCG/CAP) IH SCH (09:19)
[2018-11-01] MEDS: BUDESONIDE/FORMOTEROL 160-4.5 MCG 60 PUFF/6 GM MDI IH SCH (09:19)
[2018-11-01 15:45] VITALS: BP 146/56
== END 2018-11-01 18:09 | DRG 683 ==
LOC: ER 11:45 → EH 16:22 → 5 20:15
PROVIDERS: ADMIT Internal Medicine; ATTEND Internal Medicine
DX: N17.9 Acute kidney failure, unspecified (principal); N39.0 Urinary tract infection, site not specified; E46 Unspecified protein-calorie malnutrition; B96.1 Klebsiella pneumoniae [K. pneumoniae] as the cause of diseases classified elsewhere; E78.5 Hyperlipidemia, unspecified; G30.8 Other Alzheimer's disease; F02.80 Dementia in other diseases classified elsewhere, unspecified severity, without behavioral disturbance, psychotic disturbance, mood disturbance, and anxiety; I10 Essential (primary) hypertension; E86.0 Dehydration; J44.9 Chronic obstructive pulmonary disease, unspecified; Z90.49 Acquired absence of other specified parts of digestive tract; F17.200 Nicotine dependence, unspecified, uncomplicated; F32.9 Major depressive disorder, single episode, unspecified; E05.90 Thyrotoxicosis, unspecified without thyrotoxic crisis or storm; M19.90 Unspecified osteoarthritis, unspecified site; Z66 Do not resuscitate; Z79.899 Other long term (current) drug therapy; Z91.040 Latex allergy status; Z88.1 Allergy status to other antibiotic agents
CPT/HCPCS: 36415; 71045; 76775; 80048; 80053; 80076; 81001; 82140; 82150; 82553; 82570; 83036; 83690; 83735; 84100; 84156; 84439; 84443; 84484; 85025; 85610; 85730; 87040; 87086; 87088; 87186; 96365; 99285; J0696; J1650; J3490; J7030

== ENCOUNTER 2018-12-22 22:48 | Emergency (ER) | payer MEDICARE, MEDICAID ==
--- NOTE | 2018-12-22 23:25 | RADIOLOGY REPORT (SQ) ---
CLINICAL HISTORY: fever COMPARISON: None. TECHNIQUE: XR CHEST 1 VIEW 12/22/2018 10:50 PM CDT FINDINGS: Cardiac silhouette is normal in size. Lungs are hyperinflated without pneumonia. There is no pleural effusion. There is no pneumothorax. There are no acute osseous findings. IMPRESSION: No pneumonia.
[2018-12-22 23:27] LABS: VENOUS BLOOD HCO3 24.8 mmol/L (20-32); VENOUS BLOOD PCO2 44.8 mmHg (35-63); VENOUS BLOOD PH 7.36 (7.30-7.42)
[2018-12-22 23:28] LABS: ABSOLUTE LYMPHOCYTES (AUTO) 0.9 10^3/uL (0.5-4.7); ABSOLUTE NEUT (AUTO) 13.5 10^3/uL (1.7-8.2); BASOPHILS % (AUTO) 0.3 % (0-2); EOSINOPHILS % (AUTO) 0.2 % (0-6); HEMATOCRIT 30.9 % (36.0-47.0); HEMOGLOBIN 9.7 g/dL (12.0-15.5); LYMPHOCYTES % (AUTO) 5.8 % (13-45); MEAN CORPUSCULAR HGB CONC 31.5 g/dL (32.0-36.0); MEAN CORPUSCULAR VOLUME 92 fl (80-97); MONOCYTES % (AUTO) 6.3 % (3-13); PLATELET COUNT 267 10^3/uL (150-450); RED BLOOD COUNT 3.35 10^6/uL (3.72-5.28); RED CELL DISTRIBUTION WIDTH 17.2 % (11.5-14.0); SEGMENTED NEUTROPHILS % (AUTO) 87.4 % (42-78); TOTAL CELLS COUNTED % (AUTO) 100 %; WHITE BLOOD COUNT 15.4 10^3/uL (4.0-10.5)
--- NOTE | 2018-12-22 23:29 | ER Document Report ---
ED General - General Chief Complaint: Altered Mental Status Stated Complaint: ALTERED Time Seen by Provider: 12/22/18 23:28 Primary Care Provider: JOE CHIU MD [Primary Care Provider] - 12/26/18 Notes: Patient is a 73-year-old female who comes from from the care home. Primary care doctor is Dr. Chiu. She presents from care home due to increased weakness and concerns that she may have pneumonia based on their lung auscultation. She also had a temp of around 100 degrees at the care home. Patient has dementia and does not answer questions well. History is very limited because of this. TRAVEL OUTSIDE OF THE [place] IN LAST 30 DAYS: No - Related Data Allergies/Adverse Reactions: erythromycin base [Erythromycin Base] Allergy (Severe, Verified 07/11/18 09:25) Paranoid latex [Latex] Allergy (Intermediate, Verified 07/11/18 09:25) Blisters Past Medical History - Social History Smoking Status: Unknown if Ever Smoked Frequency of alcohol use: None Drug Abuse: None Family History: Reviewed & Not Pertinent, COPD, Hypertension - Past Medical History Cardiac Medical History: Reports: Hx Hypercholesterolemia, Hx Hypertension Denies: Hx Congestive Heart Failure, Hx DVT, Hx Heart Attack, Hx Pulmonary Embolism Pulmonary Medical History: Reports: Hx Bronchitis, Hx COPD, Hx Pneumonia Neurological Medical History: Reports: Hx Cerebrovascular Accident. Denies: Hx Seizures Endocrine Medical History: Reports: Hx Hyperthyroidism. Denies: Hx Diabetes Mellitus Type 1, Hx Diabetes Mellitus Type 2 Renal/ Medical History: Denies: Hx Peritoneal Dialysis GI Medical History: Denies: Hx Cirrhosis, Hx Gastroesophageal Reflux Disease, Hx Hiatal Hernia Musculoskeletal Medical History: Reports Hx Arthritis Skin Medical History: Denies Hx Eczema, Denies Hx Psoriasis Psychiatric Medical History: Reports: Hx Dementia, Hx Depression Traumatic Medical History: Reports: Hx Fractures Past Surgical History: Reports: Hx Appendectomy, Hx Cholecystectomy - Gallbladder was not seen on a recent CT scan, no clips were noted, it february. Denies: Hx Hysterectomy - Immunizations Hx Diphtheria, Pertussis, Tetanus Vaccination: - unknown Hx Pneumococcal Vaccination: 10/11/06 Review of Systems - Review of Systems -: Yes ROS unobtainable due to patient's medical condition - Patient has dementia and does not answer most questions. Physical Exam - Vital signs Vitals: Pulse Ox 97 12/22/18 22:53 - Notes Notes: General Appearance: Thin, alert, no acute distress, no obvious discomfort. Vitals: reviewed, See vital signs table. Head: no swelling or tenderness to the head Eyes: PERRL, EOMI, Conjuctiva clear Mouth: Some dryness of mucous membranes. Throat: No tonsillar inflammation, No airway obstruction, No lymphadenopathy Neck: Supple, no neck tenderness, No thyromegaly Lungs: No wheezing, No rales, No rhonci, No accessory muscle use, good air exchange bilaterally. Heart: Normal rate, Regular rythm, No murmur, no rub Abdomen: Normal BS, soft, No rigidity, No abdominal tenderness, No guarding, no rebound, no abdominal masses, no organomegaly Extremities: strength 5/5 in all extremities, good pulses in all extremities, no swelling or tenderness in the extremities, no edema. Skin: warm, dry, appropriate color, no rash Neuro: speech clear, oriented x 1, demented affect, patient will moves her extremities some on her own. She does not follow commands very well. She will sometimes move her arms and legs when I asked her to. She does open her eyes when asked her to. She will occasionally answer yes or no for me. Course - Re-evaluation Re-evalutation: 12/23/18 03:56 Patient's labs does show some renal sufficiency. I suspect is due to her not taking much p.o. liquids or eating or drinking much. She has pretty severe dementia. She is able to answer some questions yes or no forming but is very limited in this aspect as well. I did review Dr. Chiu/discharge summary to seems consistent with her history. Due to renal insufficiency I did give her IV rehydration and recheck her BMP and her creatinine is improving. I did call and speak with Dr. Chiu discussed the case with him. I talked about admission versus back to care home with continued rehydration there. Dr. Salgado feels that appropriate send her back to care home. I did write the care home with strict instructions to make sure that she continues to try to orally rehydrate. If she is unable to and if her creatinine is increasing and she is to return to the ER. Currently she has no fever here. There is reported possible low-grade fever at the care home. She has normal chest x-ray. They reported on care home that she had rhonchorous breath sounds are decreased breath sounds however I do not appreciate this on the lung auscultation is she appears to have clear lung sounds bilaterally when I listen to her lungs. She does not have any wheezing. Chest x-ray does not show evidence of pneumonia. Urinalysis does not show evidence of infection. At this time will discharge her to the care home with strong return precautions. Dictation of this chart was performed using voice recognition software; therefore, there may be some unintended grammatical errors. - Vital Signs Vital signs: Temp Pulse Resp BP Pulse Ox 99.2 F 16 161/81 H 96 12/23/18 02:06 12/23/18 02:00 12/23/18 02:01 12/23/18 01:31 - Laboratory Result Diagrams: 12/22/18 23:00 12/23/18 02:50 Laboratory results interpreted by me: 12/22/18 12/22/18 12/22/18 23:00 23:00 23:45 WBC 15.4 H RBC 3.35 L Hgb 9.7 L Hct 30.9 L MCHC 31.5 L RDW 17.2 H Seg Neutrophils % 87.4 H Lymphocytes % 5.8 L Absolute Neutrophils 13.5 H PT 17.1 H Chloride Carbon Dioxide BUN 51 H Creatinine 3.11 H Est GFR ( Amer) 18 L Est GFR (Non-Af Amer) 15 L Urine Ketones 12/23/18 12/23/18 00:43 02:50 WBC RBC Hgb Hct MCHC RDW Seg Neutrophils % Lymphocytes % Absolute Neutrophils PT Chloride 109 H Carbon Dioxide 21 L BUN 50 H Creatinine 2.81 H Est GFR ( Amer) 20 L Est GFR (Non-Af Amer) 17 L Urine Ketones TRACE H - EKG Interpretation by Me Additional EKG results interpreted by me: 12/22/18 23:29 EKG is reviewed and interpreted by me. EKG shows sinus rhythm with rate of [address] segment elevation. Patient is ST segment depression in leads V4 thr ough V6 which are unchanged comparison to her old EKG from July 16, 2018. OH interval, QRS duration, QT intervals are within normal range. Discharge - Discharge Clinical Impression: Renal insufficiency Dementia Qualifiers: Dementia type: unspecified type Dementia behavioral disturbance: without behavioral disturbance Qualified Code(s): F03.90 - Unspecified dementia without behavioral disturbance Leukocytosis Qualifiers: Leukocytosis type: unspecified Qualified Code(s): D72.829 - Elevated white blood cell count, unspecified Condition: Good Disposition: HOME, SELF-CARE Additional Instructions: Mrs. Solomon labs showed some signs of dehydration. I did not find evidence of pneumonia or urinary tract infection. I did discuss the case with Dr. Waddell who recommends continued oral rehydration at the care home. She recieved some IV fluids here. Please have Mrs. Green return to the ER if she has recurrent fevers, is not taking in liquids or appears unwell. She should have a BMP rechecked this weekend and forward the resulsts to Dr. Waddell. Please have her return to the ER if her Creatinine is above 3. Referrals: JOE CHIU MD [Primary Care Provider] - 12/26/18
[2018-12-22 23:32] LABS: INTERNATIONAL RATION (INR) 1.33; PROTHROMBIN TIME 17.1 SEC (11.4-15.4)
[2018-12-22] MEDS ORDERED: NORMAL SALINE 500 ML IV ONE (23:33)
[2018-12-23 00:13] LABS: A TYPE INFLUENZA AG NEGATIVE (NEGATIVE); B INFLUENZA AG NEGATIVE (NEGATIVE)
[2018-12-23 00:23] LABS: ALANINE AMINOTRANSFERASE 14 U/L (9-52); ALKALINE PHOSPHATASE 87 U/L (38-126); ANION GAP 13 (5-19); ASPARTATE AMINO TRANSFERASE 22 U/L (14-36); BILIRUBIN,DIRECT 0.3 mg/dL (0.0-0.4); BILIRUBIN,TOTAL 0.3 mg/dL (0.2-1.3); BLOOD UREA NITROGEN 51 mg/dL (7-20); CALCIUM 9.7 mg/dL (8.4-10.2); CARBON DIOXIDE 26 mmol/L (22-30); CHLORIDE 104 mmol/L (98-107); GLUCOSE 87 mg/dL (75-110); POTASSIUM 4.7 mmol/L (3.6-5.0); SODIUM 142.5 mmol/L (137-145); TOTAL PROTEIN 7.4 g/dL (6.3-8.2)
[2018-12-23 01:22] LABS: AMORPHOUS SEDIMENT,URINE TRACE /HPF; APPEARANCE,URINE SLIGHTLY-CLOUDY; BILIRUBIN,URINE NEGATIVE (NEGATIVE); COLOR,URINE YELLOW; GLUCOSE, URINE NEGATIVE (NEGATIVE); KETONES,URINE TRACE mg/dL (NEGATIVE); LEUKOCYTE ESTERASE,URINE NEGATIVE (NEGATIVE); NITRITE,URINE NEGATIVE (NEGATIVE); PROTEIN,URINE NEGATIVE (NEGATIVE); URINE SPECIFIC GRAVITY 1.021; UROBILINOGEN,URINE NEGATIVE mg/dL (<2.0)
[2018-12-23] MEDS ORDERED: NORMAL SALINE 500 ML IV ONE (01:51)
[2018-12-23 03:24] LABS: ANION GAP 13 (5-19); BLOOD UREA NITROGEN 50 mg/dL (7-20); CALCIUM 9.1 mg/dL (8.4-10.2); CARBON DIOXIDE 21 mmol/L (22-30); CHLORIDE 109 mmol/L (98-107); GLUCOSE 84 mg/dL (75-110); POTASSIUM 4.6 mmol/L (3.6-5.0)
[2018-12-23 04:44] VITALS: BP 123/61
--- NOTE | 2018-12-23 07:55 | EKG REPORT ---
SEVERITY:- ABNORMAL ECG - SINUS RHYTHM CONSIDER LEFT VENTRICULAR HYPERTROPHY : Confirmed by: Kevin Jiménez MD 23-Dec-2018 07:53:52
== END 2018-12-23 04:44 ==
LOC: ER 22:48
DX: N28.9 Disorder of kidney and ureter, unspecified (principal); F03.90 Unspecified dementia, unspecified severity, without behavioral disturbance, psychotic disturbance, mood disturbance, and anxiety; D72.829 Elevated white blood cell count, unspecified; R41.82 Altered mental status, unspecified; E78.00 Pure hypercholesterolemia, unspecified; I10 Essential (primary) hypertension; Z91.040 Latex allergy status; Z88.3 Allergy status to other anti-infective agents
CPT/HCPCS: 93005; 99285; 51701; 36415; 87040; 87086; 82962; 85025; 85610; 80048; 80053; 81001; 82803; 83605; 87804; 71045; 93010; J7040 ×2